=== PATIENT | male | born 1940 | race Caucasian/White ===

== ENCOUNTER 2017-03-15 17:11 | Inpatient (IN) | payer MEDICARE, OTHER ==
[~2017-03-15] VITALS: Ht 188 cm; Wt 98.4 kg
[~2017-03-15 17:11] MED LIST: ASPI81TA17 PO; B COTAB3 PO; CARB200 PO; CLON1 PO; FERR140T PO; LEVE500 PO; MULT-65 PO; ZOCO40TA PO
[2017-03-15 17:14] VITALS: BP 158/89; PULSE 84; RESP 20; TEMP 98.4; O2SAT 97
[2017-03-15] MEDS ORDERED: SODIUM CHLORIDE 0.9% FLUSH 10 ML FLUSH IVF PRN (17:30)
[2017-03-15] MEDS ORDERED: META48.53 PO (17:33)
[2017-03-15] MEDS ORDERED: LEVE250 PO (17:33)
[2017-03-15] MEDS ORDERED: PROT40TA PO (17:35)
[2017-03-15 17:41] VITALS: BP 176/93; PULSE 70; RESP 16; O2SAT 96
--- NOTE | 2017-03-15 17:56 | PD ---
HPI Chief Complaint: GI Complaint Time Seen by Provider: 17:19 Travel History International Travel<30 days: No Contact w/Intl Traveler<30days: No Traveled to known affect area: No History of Present Illness HPI 76-year-old male with PMH of HTN, diverticulosis, alcohol dependence, seizure disorder presents to the ED for evaluation of less than 24-hour history of bloody stools. Patient states that he had to stools with BRB in the bowl and on the paper followed by a very dark and tarry stool this afternoon. He denies dizziness, palpitations, chest pain, shortness of breath, abdominal pain, nausea , vomiting, change in appetite. States he last had a endoscopy approximately 9 months ago. He states that there was a polyp that was "difficult to really reach "at the time. He is followed by Dr. Church, GI and Dr. Reis, PCP. [facility] Past Medical History Anemia: Yes Arthritis: No Asthma: No Autoimmune Disease: No Blood Disorders: No Anxiety: Yes Depression: Yes (HX) Heart Rhythm Problems: No Cancer: No Cardiovascular Problems: Yes High Cholesterol: Yes Chest Pain: No Congestive Heart Failure: No COPD: No Cerebrovascular Accident: Yes Diabetes: No Diminished Hearing: No Diverticulitis: Yes Endocrine: No Gastrointestinal Disorders: Yes (DIVERTICULITIS, BARETTES DISEASE) GERD: Yes Genitourinary: No Headaches: No Hypertension: No Immune Disorder: No Musculoskeletal: No Neurologic: Yes (seizures, cva (lower left leg weankess)) Psychiatric: No Reproductive: No Respiratory: No Seizures: Yes Thyroid Disease: No Past Surgical History Abdominal Surgery: Yes (hernia) AICD: No Arteriovenous Shunt: No Insulin Pump: No Joint Replacement: No Pacemaker: No Other Surgery: Yes Social History Alcohol Use: Yes (2 drinks daily) Tobacco Use: No Substance Use: No Allergies-Medications (Allergen,Severity, Reaction): Coded Allergies: No Known Allergies (Verified , 04/07/16) Reported Meds & Prescriptions Reported Meds & Active Scripts Active Reported Keppra (Levetiracetam) 1,000 Mg Tab 1,500 Mg PO BID Simvastatin 40 Mg Tab 40 Mg PO HS Ferrous Sulfate ER (Ferrous Sulfate) 140 Mg (45 Mg Iron) Tab 140 Mg PO DAILY Klonopin (Clonazepam) 0.5 Mg Tab 0.5 Mg PO HS Tegretol (Carbamazepine) 200 Mg Tab 200 Mg PO BID Nephro-Cecilia (B-Complex W/ C & Folic Acid) 1 Tab 1 Tab PO DAILY Aspirin 81 Mg Chew 81 Mg CHEW DAILY Protonix (Pantoprazole Sodium) 40 Mg Tab 40 Mg PO DAILY Metamucil Original Texture (Psyllium Hydrophilic Mucilloid) 3.4 Gram/7 Gram Pow 1 Scoop PO TID PRN 1 rounded TEASPOON in 8 oz of liquid at the first sign of irregularity. Keppra (Levetiracetam) 250 Mg Tab 250 Mg PO BID Review of Systems Except as stated in HPI: all other systems reviewed are Neg Physical Exam Narrative GENERAL: Well-nourished, well-developed pleasant white male in no acute distress.. SKIN: Focused skin assessment warm/dry. HEAD: Normocephalic. EYES: No scleral icterus. No injection or drainage. NECK: Supple, trachea midline. No JVD or lymphadenopathy. CARDIOVASCULAR: Regular rate and rhythm without murmurs, gallops, or rubs. RESPIRATORY: Breath sounds equal bilaterally. No accessory muscle use. GASTROINTESTINAL: Abdomen soft, non-tender, nondistended. Active bowel sounds. RECTAL EXAM: No masses or tenderness, stool is maroon, guaiac positive. MUSCULOSKELETAL: No cyanosis, or edema. BACK: Nontender without obvious deformity. No CVA tenderness. Data Data Last Documented VS Vital Signs Date Time Temp Pulse Resp B/P (MAP) Pulse Ox O2 Delivery O2 Flow Rate FiO2 03/15/17 17:41 70 16 176/93 (120) 96 03/15/17 17:14 98.4 Room Air Orders Orders Complete Blood Count With Diff (03/15/17 17:19) Comprehensive Metabolic Panel (03/15/17 17:19) Prothrombin Time / Inr (Pt) (03/15/17 17:19) Act Partial Throm Time (Ptt) (03/15/17 17:19) Urinalysis - C+S If Indicated (03/15/17 17:19) Ecg Monitoring (03/15/17 17:19) Iv Access Insert/Monitor (03/15/17 17:19) Oximetry (03/15/17 17:19) Sodium Chloride 0.9% Flush (Ns Flush) (03/15/17 17:30) Pantoprazole Inj (Protonix Inj) (03/15/17 18:00) Type And Screen (03/15/17 19:03) Sodium Chlor 0.9% 1000 Ml Inj (Ns 1000 M (03/15/17 19:03) Sodium Chloride 0.9... W/Pantoprazole In (03/15/17 19:03) Alcohol Withdrawal Asmt-Ciwa ONCE (03/15/17 19:03) Flumazenil Inj (Romazicon Inj) (03/15/17 19:15) Lorazepam (Ativan) (03/15/17 19:15) Lorazepam Inj (Ativan Inj) (03/15/17 19:15) Lorazepam (Ativan) (03/15/17 19:15) Lorazepam Inj (Ativan Inj) (03/15/17 19:15) Lorazepam Inj (Ativan Inj) (03/15/17 19:15) Lorazepam Inj (Ativan Inj) (03/15/17 19:15) Consult Gastroenterology (03/15/17 ) (Hub Use Only)Inp Phy Cons/Ref (03/15/17 ) Diet Heart Healthy (03/15/17 Dinner) Admit Order (Ed Use Only) (03/15/17 19:27) Labs Laboratory Tests Test 03/15/17 18:05 03/15/17 18:20 White Blood Count 6.1 TH/MM3 Red Blood Count 4.34 MIL/MM3 Hemoglobin 12.7 GM/DL Hematocrit 37.8 % Mean Corpuscular Volume 86.9 FL Mean Corpuscular Hemoglobin 29.2 PG Mean Corpuscular Hemoglobin Concent 33.6 % Red Cell Distribution Width 13.9 % Platelet Count 195 TH/MM3 Mean Platelet Volume 8.4 FL Neutrophils (%) (Auto) 74.3 % Lymphocytes (%) (Auto) 14.7 % Monocytes (%) (Auto) 8.3 % Eosinophils (%) (Auto) 2.1 % Basophils (%) (Auto) 0.6 % Neutrophils # (Auto) 4.5 TH/MM3 Lymphocytes # (Auto) 0.9 TH/MM3 Monocytes # (Auto) 0.5 TH/MM3 Eosinophils # (Auto) 0.1 TH/MM3 Basophils # (Auto) 0.0 TH/MM3 CBC Comment DIFF FINAL Differential Comment Prothrombin Time 10.2 SEC Prothromb Time International Ratio 0.9 RATIO Activated Partial Thromboplast Time 26.8 SEC Blood Urea Nitrogen 15 MG/DL Creatinine 0.72 MG/DL Random Glucose 97 MG/DL Total Protein 6.1 GM/DL Albumin 3.5 GM/DL Calcium Level 8.3 MG/DL Alkaline Phosphatase 52 U/L Aspartate Amino Transf (AST/SGOT) 6 U/L Alanine Aminotransferase (ALT/SGPT) 16 U/L Total Bilirubin 0.3 MG/DL Sodium Level 138 MEQ/L Potassium Level 4.0 MEQ/L Chloride Level 104 MEQ/L Carbon Dioxide Level 26.4 MEQ/L Anion Gap 8 MEQ/L Estimat Glomerular Filtration Rate 106 ML/MIN Urine Color YELLOW Urine Turbidity CLEAR Urine pH 6.0 Urine Specific [place] 1.022 Urine Protein NEG mg/dL Urine Glucose (UA) NEG mg/dL Urine Ketones NEG mg/dL Urine Occult Blood NEG Urine Nitrite NEG Urine Bilirubin NEG Urine Urobilinogen LESS THAN 2.0 MG/DL Urine Leukocyte Esterase NEG Urine RBC 1 /hpf Urine WBC 1 /hpf Urine Mucus FEW /lpf Microscopic Urinalysis Comment CULT NOT INDICATED MDM Medical Decision Making Medical Screen Exam Complete: Yes Emergency Medical Condition: Yes Differential Diagnosis Alcoholic gastritis versus diverticulitis versus GI bleed versus anemia versus metabolic derangement versus other Narrative Course 76-year-old male with PMH of HTN, diverticulosis, alcohol dependence, seizure disorder presents to the ED for evaluation of less than 24-hour history of bloody stools. Patient states that he had two stools with BRB in the bowl and on the paper followed by a very dark and tarry stool this afternoon. He denies dizziness, palpitations, chest pain, shortness of breath, abdominal pain, nausea , vomiting, change in appetite. States he last had a endoscopy approximately [address] Church. He states that there was a polyp that was "difficult to really reach "at the time. He is followed by Dr. Church, GI and Dr. Reis, PCP. Vitals reviewed. Physical exam reveals a pleasant white male in no acute distress. Abdominal exam benign. Rectal exam reveals maroon colored stool, guaiac positive. Administered Protonix bolus and IV drip initiated. Hemoglobin 12.7. GI consult placed. I discussed the workup with the patient and his family who are agreeable to admission. The patient was concerned that he would miss his evening dose of Keppra, administered in the ED. I spoke with Dr. Amaro who agrees to accept the patient to medicine service. Please see medicine and GI notes for disposition. HemaPrompt Point of Care Internal Pos. & Neg. Controls: Passed Fecal Specimen Occult Blood: Positive Mary Reardon Mar 15, 2017 17:56
[2017-03-15] MEDS ORDERED: PANTOPRAZOLE SODIUM 40 MG VIAL IVP ONE (18:00)
[2017-03-15 18:29] LABS: AUTOMATED NEUTROPHIL # 4.5 TH/MM3 (1.8-7.7); BASOPHIL % 0.6 % (0.0-2.0); EOSINOPHIL # 0.1 TH/MM3 (0-0.4); EOSINOPHIL % 2.1 % (0.0-4.0); HEMATOCRIT 37.8 % (39.0-51.0); HEMO FLAGS DIFF FINAL; LYMPH % 14.7 % (9.0-44.0); LYMPHOCYTE # 0.9 TH/MM3 (1.0-4.8); MEAN CELL VOLUME 86.9 FL (80.0-100.0); MEAN CORPUSCULAR HEMOGLOBIN 29.2 PG (27.0-34.0); MEAN CORPUSCULAR HGB CONC 33.6 % (32.0-36.0); MONO % 8.3 % (0.0-8.0); NEUT % 74.3 % (16.0-70.0); PLATELET COUNT 195 TH/MM3 (150-450); RED BLOOD COUNT 4.34 MIL/MM3 (4.50-5.90); RED CELL DISTRIBUTION WIDTH 13.9 % (11.6-17.2); WHITE BLOOD COUNT 6.1 TH/MM3 (4.0-11.0)
[2017-03-15] MEDS ORDERED: ASPI81CH CHEW (18:32)
[2017-03-15] MEDS ORDERED: TEGR200T PO (18:32)
[2017-03-15] MEDS ORDERED: FERR140T PO (18:32)
[2017-03-15] MEDS ORDERED: CLON.5 PO (18:32)
[2017-03-15] MEDS ORDERED: NEPHTAB3 PO (18:32)
[2017-03-15] MEDS ORDERED: SIMV40TA PO (18:32)
[2017-03-15 18:36] LABS: APTT (PATIENT) 26.8 SEC (24.3-30.1); INTERNATIONAL NORMALIZED RATIO 0.9 RATIO; PROTHROMBIN TIME - PATIENT 10.2 SEC (9.8-11.6)
[2017-03-15 18:46] LABS: ANION GAP 8 MEQ/L (5-15); AST (GOT) 6 U/L (15-37); BICARBONATE 26.4 MEQ/L (21.0-32.0); BLOOD UREA NITROGEN 15 MG/DL (7-18); CHLORIDE 104 MEQ/L (98-107); GLOMERULAR FILTRATION RATE 106 ML/MIN (>89); SODIUM (NA) 138 MEQ/L (136-145)
[2017-03-15 18:47] LABS: ALT (GPT) 16 U/L (12-78)
[2017-03-15 18:48] LABS: BLOOD, URINE NEG (NEG); COMMENT (UR) CULT NOT INDICATED; CULTURE IF INDICATED CULT NOT INDICATED; GLUCOSE,URINE NEG (NEG); KETONE, URINE NEG (NEG); MUCUS URINE FEW /lpf (OCC); NITRITE,URINE NEG (NEG); URINE COLOR YELLOW (YELLW/STRAW)
[2017-03-15 18:50] LABS: ALKALINE PHOSPHATASE 52 U/L (45-117); TOTAL BILIRUBIN ADULT 0.3 MG/DL (0.2-1.0)
[2017-03-15] MEDS ORDERED: SODIUM CHLOR 0.9% 1000 ML INJ 1,000 ML IV SCH (19:03)
[2017-03-15] MEDS ORDERED: LORazepam 2 MG/ML VIAL IV PUSH PRN ×3 (19:15)
[2017-03-15] MEDS ORDERED: FLUMAZENIL 0.5 MG/5 ML VIAL IV PUSH PRN (19:15)
[2017-03-15] MEDS ORDERED: KEPP10002 PO (19:15)
[2017-03-15] MEDS ORDERED: LORazepam 1 MG TAB PO PRN (19:15)
[2017-03-15] MEDS ORDERED: LORazepam 2 MG TAB PO PRN (19:15)
[2017-03-15 19:35] VITALS: BP 163/82; PULSE 67; RESP 18; O2SAT 97
[2017-03-15] MEDS: PANTOPRAZOLE INJ 80 MG in SODIUM CHLORIDE 0.9% INJ 100 ML IV SCH (19:49)
[2017-03-15] MEDS ORDERED: NALOXONE HCL 0.4 MG/ML AMP IV PRN (21:30)
[2017-03-15] MEDS ORDERED: ACETAMINOPHEN 325 MG TAB PO PRN (21:30)
[2017-03-15] MEDS ORDERED: ONDANSETRON HCL 4 MG/2 ML VIAL IVP PRN (21:30)
[2017-03-15] MEDS: SODIUM CHLOR 0.9% 1000 ML INJ 1,000 ML IV SCH (22:16)
[2017-03-15 23:30] VITALS: BP 152/73; PULSE 64; RESP 17; TEMP 96.8; O2SAT 95
[2017-03-16] VITALS (16 sets, daily range): BP systolic 152–206; BP diastolic 73–122; PULSE 68–169; RESP 16–30; TEMP 96.2–99.3; O2SAT 93–97
--- NOTE | 2017-03-16 02:43 | HHI.HP ---
HPI Service [facility] Primary Care Physician Rohit Reis MD Admission Diagnosis GI bleed Diagnoses: Chief Complaint: Bloody stool Travel History International Travel<30 Days: No Contact w/Intl Traveler <30 Da: No Traveled to Known Affected Are: No History of Present Illness 76 years old male with history of hypertension diverticulosis alcohol dependence home seizure disorder presented to the ED with a complaint of bloody stool, patient stated his stool initially was bright and slowly become very black and tarry. Patient denied dizziness headache blurry vision palpitation chest pain short of breath abdominal pain nausea vomiting, weight loss, he did have endoscopy 9 month ago nothing significant he is aware of, except some polyps. Patient follow up with Dr. Lynnette GOLDSTEIN. 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 Diverticulitis Faria disease History of seizure Hernia Past Surgical History Hernia repair Allergies: Coded Allergies: No Known Allergies (Verified , 04/07/16) Family History Father has lung cancer Social History He has 2 drinks a day Physical Exam Vital Signs Vital Signs Date Time Temp Pulse Resp B/P (MAP) Pulse Ox O2 Delivery O2 Flow Rate FiO2 03/15/17 23:30 96.8 64 17 152/73 (99) 95 03/15/17 19:35 67 18 163/82 (109) 97 Room Air 03/15/17 17:41 70 16 176/93 (120) 96 03/15/17 17:14 98.4 84 20 158/89 (112) 97 Room Air Physical Exam GENERAL: This is a well-nourished, well-developed patient, in no apparent distress. SKIN: No rashes, warm and dry HEAD: Atraumatic. Normocephalic. EYES: Pupils equal round and reactive. Extraocular motions intact. No scleral icterus. ENT: Nose without bleeding, or drainage, Airway patent. NECK: Trachea midline. Supple CARDIOVASCULAR: Regular rate and rhythm without murmurs, gallops, or rubs. RESPIRATORY: Fair air entry bilaterally. No wheezes, rales, or rhonchi. GASTROINTESTINAL: Abdomen soft, non-tender, nondistended. Positive bowel sounds MUSCULOSKELETAL: Extremities without clubbing, cyanosis, or edema. Pedal pulses appreciated NEUROLOGICAL: Awake and alert. Moves all extremity. Normal speech.no focal neurological deficit Laboratory Laboratory Tests Test 03/15/17 18:05 03/15/17 18:20 White Blood Count 6.1 Red Blood Count 4.34 Hemoglobin 12.7 Hematocrit 37.8 Mean Corpuscular Volume 86.9 Mean Corpuscular Hemoglobin 29.2 Mean Corpuscular Hemoglobin Concent 33.6 Red Cell Distribution Width 13.9 Platelet Count 195 Mean Platelet Volume 8.4 Neutrophils (%) (Auto) 74.3 Lymphocytes (%) (Auto) 14.7 Monocytes (%) (Auto) 8.3 Eosinophils (%) (Auto) 2.1 Basophils (%) (Auto) 0.6 Neutrophils # (Auto) 4.5 Lymphocytes # (Auto) 0.9 Monocytes # (Auto) 0.5 Eosinophils # (Auto) 0.1 Basophils # (Auto) 0.0 CBC Comment DIFF FINAL Differential Comment Prothrombin Time 10.2 Prothromb Time International Ratio 0.9 Activated Partial Thromboplast Time 26.8 Blood Urea Nitrogen 15 Creatinine 0.72 Random Glucose 97 Total Protein 6.1 Albumin 3.5 Calcium Level 8.3 Alkaline Phosphatase 52 Aspartate Amino Transf (AST/SGOT) 6 Alanine Aminotransferase (ALT/SGPT) 16 Total Bilirubin 0.3 Sodium Level 138 Potassium Level 4.0 Chloride Level 104 Carbon Dioxide Level 26.4 Anion Gap 8 Estimat Glomerular Filtration Rate 106 Urine Color YELLOW Urine Turbidity CLEAR Urine pH 6.0 Urine Specific [place] 1.022 Urine Protein NEG Urine Glucose (UA) NEG Urine Ketones NEG Urine Occult Blood NEG Urine Nitrite NEG Urine Bilirubin NEG Urine Urobilinogen LESS THAN 2.0 Urine Leukocyte Esterase NEG Urine RBC 1 Urine WBC 1 Urine Mucus FEW Microscopic Urinalysis Comment CULT NOT INDICATED Result Diagram: 03/15/17180403/15/171804 Caprini VTE Risk Assessment Caprini VTE Risk Assessment: Mod/High Risk (score >= 2) VTE Pharm Contraindication: Active bleeding Caprini Risk Assessment Model Point Value = 1 Point Value = 2 Point Value = 3 Point Value = 5 Age 41-60 Minor surgery BMI > 25 kg/m2 Swollen legs Varicose veins or History of unexplained or recurrent spontaneous Oral contraceptives or hormone replacement Sepsis (< 1 month) Serious lung disease, including pneumonia (< 1 month) Abnormal pulmonary function Acute myocardial infarction Congestive heart failure (< 1 month) History of inflammatory bowel disease Medical patient at bed rest Age 61-74 Arthroscopic surgery Major open surgery (> 45 min) Laparoscopic surgery (> 45 min) Malignancy Confined to bed (> 72 hours) Immobilizing plaster cast Central venous access Age >= 75 History of VTE Family history of VTE Factor V Leiden Prothrombin [id number] Lupus anticoagulant Anticardiolipin antibodies Elevated serum homocysteine Heparin-induced thrombocytopenia Other congenital or acquired thrombophilia Stroke (< 1 month) Elective arthroplasty Hip, pelvis, or leg fracture Acute spinal cord injury (< 1 month) Prophylaxis Regimen Total Risk Factor Score Risk Level Prophylaxis Regimen 0-1 Low Early ambulation 2 Moderate Order ONE of the following: *Sequential Compression Device (SCD) *Heparin 5000 units SQ BID 3-4 Higher Order ONE of the following medications: *Heparin 5000 units SQ TID *Enoxaparin/Lovenox 40 mg SQ daily (WT < 150 kg, CrCl > 30 mL/min) *Enoxaparin/Lovenox 30 mg SQ daily (WT < 150 kg, CrCl > 10-29 mL/min) *Enoxaparin/Lovenox 30 mg SQ BID (WT < 150 kg, CrCl > 30 mL/min) AND/OR *Sequential Compression Device (SCD) 5 or more Highest Order ONE of the following medications: *Heparin 5000 units SQ TID (Preferred with Epidurals) *Enoxaparin/Lovenox 40 mg SQ daily (WT < 150 kg, CrCl > 30 mL/min) *Enoxaparin/Lovenox 30 mg SQ daily (WT < 150 kg, CrCl > 10-29 mL/min) *Enoxaparin/Lovenox 30 mg SQ BID (WT < 150 kg, CrCl > 30 mL/min) AND *Sequential Compression Device (SCD) Assessment and Plan Assessment and Plan 75 years old male with history of hypertension and alcohol dependence presented with Rectal bleed: History of diverticulitis and Faria's Recent endoscopically 9 month ago showed polyps No weight loss, no abdominal pain Consul GI Keep patient nothing by mouth, iv Protonix Monitor H&H Hyperlipidemia: Continue statin History of seizure: Continue Keppra and Tegretol, monitor electrolyte and magnesium All dependence: Patient counseled, CIWA protocol DVT prophylaxis with SCD, no chemical anticoagulation due to GI bleed Discussed Condition With Patient Sreedhar Amaro MD Mar 16, 2017 02:43
[2017-03-16 03:58] LABS: AUTOMATED NEUTROPHIL # 3.6 TH/MM3 (1.8-7.7); BASOPHIL % 0.7 % (0.0-2.0); EOSINOPHIL # 0.2 TH/MM3 (0-0.4); EOSINOPHIL % 2.8 % (0.0-4.0); HEMATOCRIT 35.7 % (39.0-51.0); HEMO FLAGS DIFF FINAL; LYMPH % 20.7 % (9.0-44.0); LYMPHOCYTE # 1.1 TH/MM3 (1.0-4.8); MEAN CORPUSCULAR HEMOGLOBIN 28.7 PG (27.0-34.0); MEAN CORPUSCULAR HGB CONC 33.4 % (32.0-36.0); MONO % 7.8 % (0.0-8.0); PLATELET COUNT 185 TH/MM3 (150-450); RED BLOOD COUNT 4.16 MIL/MM3 (4.50-5.90); RED CELL DISTRIBUTION WIDTH 14.2 % (11.6-17.2); WHITE BLOOD COUNT 5.3 TH/MM3 (4.0-11.0)
[2017-03-16] MEDS: PANTOPRAZOLE INJ 80 MG in SODIUM CHLORIDE 0.9% INJ 100 ML IV SCH ×3 (04:26→22:19)
[2017-03-16 04:40] LABS: BICARBONATE 27.4 MEQ/L (21.0-32.0)
[2017-03-16] MEDS: SODIUM CHLOR 0.9% 1000 ML INJ 1,000 ML IV SCH ×2 (07:28→13:04)
[2017-03-16] MEDS: carBAMazepine 200 MG TAB PO SCH ×3 (09:00→20:53)
[2017-03-16] MEDS ORDERED: levETIRAcetam 500 MG TAB PO SCH (09:00)
[2017-03-16] MEDS ORDERED: levETIRAcetam 250 MG TAB PO SCH (09:00)
--- NOTE | 2017-03-16 11:19 | HHI.PR ---
Addendum to Inpatient Note Addendum Reason: Additional Documentation Additional Information S: Tano heard on overhead page. A few minutes later, received notification via code pager. Present team responded to Tano to find patient actively having a generalized tonic-clonic seizure. Per nurse report, there were some confusion about his Keppra dosage, so he didn't get his Keppra this morning. As we entered the room, nurse reported that patient had been seizing for about 5 minutes and had received Ativan 2 mg IV. He was also on oxygen by nasal cannula. 10:54 AM, start seizure episode. 11 AM, 2 mg Ativan IV given. 11:01 AM stop of seizure. O: Vitals: O2 via nasal cannula increased to 3 L per min to 4 L/m. 11:02 AM, blood pressure 206/122, pulse 169, O2 sat 96% on 4 L nasal cannula. 11:05 AM, blood pressure 181/92, pulse 116, pulse ox 98% on 4 L nasal cannula, temperature 98.4F axillary 11:08 AM, Accu-Chek showed blood glucose of 143 Gen.: Elderly gentleman having a generalized tonic-clonic seizure HEENT: Normocephalic atraumatic, relatively dry mucous membranes Cardiovascular: Tachycardic rate and regular rhythm Respiratory: Clear to also take bilaterally Extremities: No edema A/P: 76-year-old man here for GI bleed on CIWA and missed his Keppra dose presented with 5 minutes of tonic-clonic seizure, which resolved with Ativan [address] Alvarado has been notified. Putting an additional orders for Ativan and clonidine. at bedside was aware of situation. - Generalized tonic clonic seizure resolved with Ativan - Fingerstick blood glucose within normal limits, electrolytes from this morning within normal limits. - Continue to monitor - Other orders per primary doctor Patient seen and discussed with Dr. Kuo. Richy Denton MD R2 Mar 16, 2017 11:19
[2017-03-16] MEDS ORDERED: SODIUM CHLORIDE 0.9% FLUSH 10 ML FLUSH IV FLUSH PRN (11:45)
[2017-03-16] MEDS ORDERED: LORazepam 2 MG/ML VIAL IV PRN (11:45)
[2017-03-16] MEDS ORDERED: levETIRAcetam INJ 1,500 MG in SODIUM CHLORIDE 0.9% INJ 100 ML IV SCH ×2 (12:00→21:00)
[2017-03-16] MEDS ORDERED: LORazepam 2 MG/ML VIAL IV PUSH ONE (12:30)
[2017-03-16] MEDS: levETIRAcetam 1000 MG INJ 100 ML IV SCH ×2 (12:43→20:04)
[2017-03-16] MEDS: levETIRAcetam 500 MG/NS 100 ML IV SCH ×4 (12:43→20:04)
--- NOTE | 2017-03-16 12:44 | PD.CONS ---
HPI Service Critical Care Medicine Consult Requested By [facility] Reason for Consult Refractory seizures Primary Care Physician Rohit Reis MD History of Present Illness 76 y/o man admitted with UGI bleed , Marks's esophagus, with long-standing seizure history refused his keppra and tegretol medication this morning at 0900 because he thought it was the wrong dose. About 1130 hours he developed generalized seizures refractory to ativan 2 mg iv. After 4 mg ativan total seizures stopped. 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 If he misses his AEDs he seizes. On arrival he is protecting his airway, no obstruction. Unresponsive, hypertensive. DTRs 4+ patella and + clonus left ankle. I escorted him to the [facility] and spoke to his and son at the bedside. On arrival, though non convulsive and using right arm purposefully, the EEG showed residual seizure activity. He received an additional versed dose of 5 mg X 2 iv, then EEG was quiet. PMH of HTN, diverticulosis, alcohol dependence, seizure disorder. Presented to the ED for evaluation of less than 24-hour history of bloody stools. Patient states that he had to stools with BRB in the bowl and on the paper followed by a very dark and tarry stool this afternoon. He denies dizziness, palpitations, chest pain, shortness of breath, abdominal pain, nausea , vomiting, change in appetite. States he last had a endoscopy approximately 9 months ago. He states that there was a polyp that was "difficult to really reach "at the time. He is followed by Dr. Church, GI and Dr. Reis, PCP. Review of Systems ROS No obvious preceding complaints according to his . Past Family Social History Allergies: Coded Allergies: No Known Allergies (Verified , 04/07/16) Past Medical History Past Medical History Anemia: Yes Arthritis: No Asthma: No Autoimmune Disease: No Blood Disorders: No Anxiety: Yes Depression: Yes (HX) Heart Rhythm Problems: No Cancer: No Cardiovascular Problems: Yes High Cholesterol: Yes Chest Pain: No Congestive Heart Failure: No COPD: No Cerebrovascular Accident: Yes Diabetes: No Diminished Hearing: No Diverticulitis: Yes Endocrine: No Gastrointestinal Disorders: Yes (DIVERTICULITIS, MARKS'S DISEASE) GERD: Yes Genitourinary: No Headaches: No Hypertension: No Immune Disorder: No Musculoskeletal: No Neurologic: Yes (seizures, cva (lower left leg weankess)) Psychiatric: No Reproductive: No Respiratory: No Seizures: Yes Thyroid Disease: No Past Surgical History Abdominal Surgery: Yes (hernia) AICD: No Arteriovenous Shunt: No Insulin Pump: No Joint Replacement: No Pacemaker: No Other Surgery: Yes Social History Alcohol Use: Yes (2 drinks daily) Tobacco Use: No Substance Use: No Allergies-Medications Allergies-Medications (Allergen,Severity, Reaction): Coded Allergies: No Known Allergies (Verified , 04/07/16) Reported Meds & Prescriptions Reported Meds & Active Scripts Active Reported Keppra (Levetiracetam) 1,000 Mg Tab 1,500 Mg PO BID Simvastatin 40 Mg Tab 40 Mg PO HS Ferrous Sulfate ER (Ferrous Sulfate) 140 Mg (45 Mg Iron) Tab 140 Mg PO DAILY Klonopin (Clonazepam) 0.5 Mg Tab 0.5 Mg PO HS Tegretol (Carbamazepine) 200 Mg Tab 200 Mg PO BID Nephro-Cecilia (B-Complex W/ C & Folic Acid) 1 Tab 1 Tab PO DAILY Aspirin 81 Mg Chew 81 Mg CHEW DAILY Protonix (Pantoprazole Sodium) 40 Mg Tab 40 Mg PO DAILY Metamucil Original Texture (Psyllium Hydrophilic Mucilloid) 3.4 Gram/7 Gram Pow 1 Scoop PO TID PRN 1 rounded TEASPOON in 8 oz of liquid at the first sign of irregularity. Keppra (Levetiracetam) 250 Mg Tab 250 Mg PO BID Physical Exam Vital Signs Vital Signs Date Time Temp Pulse Resp B/P (MAP) Pulse Ox O2 Delivery O2 Flow Rate FiO2 03/16/17 11:00 97 6.00 03/16/17 08:29 97 21 03/16/17 08:00 96.2 70 16 164/97 (119) 96 03/16/17 07:30 Room Air 03/16/17 06:47 68 03/16/17 04:00 96.2 74 17 176/82 (113) 96 03/15/17 23:30 96.8 64 17 152/73 (99) 95 03/15/17 19:35 67 18 163/82 (109) 97 Room Air 03/15/17 17:41 70 16 176/93 (120) 96 03/15/17 17:14 98.4 84 20 158/89 (112) 97 Room Air Physical Exam Gen: Unresponsive Head: Atraumatic. Neck: Rigid, no airway obstruction. Lungs: Clear, good arpita air movement. Heart: NL S1S2, tachycardia. No JVD. Abdomen: Voluntary guarding only. Extremities: Well perfused. Muscle mass less left arm and leg. Neuro: Pupils 1 mm. Rigid extremities with flexion right arm. Patella DTRs 4+, clonus left ankle. Disconjugate gaze. Laboratory Laboratory Tests Test 03/15/17 18:05 03/15/17 18:20 03/16/17 03:43 White Blood Count 6.1 5.3 Red Blood Count 4.34 4.16 Hemoglobin 12.7 11.9 Hematocrit 37.8 35.7 Mean Corpuscular Volume 86.9 86.0 Mean Corpuscular Hemoglobin 29.2 28.7 Mean Corpuscular Hemoglobin Concent 33.6 33.4 Red Cell Distribution Width 13.9 14.2 Platelet Count 195 185 Mean Platelet Volume 8.4 7.7 Neutrophils (%) (Auto) 74.3 68.0 Lymphocytes (%) (Auto) 14.7 20.7 Monocytes (%) (Auto) 8.3 7.8 Eosinophils (%) (Auto) 2.1 2.8 Basophils (%) (Auto) 0.6 0.7 Neutrophils # (Auto) 4.5 3.6 Lymphocytes # (Auto) 0.9 1.1 Monocytes # (Auto) 0.5 0.4 Eosinophils # (Auto) 0.1 0.2 Basophils # (Auto) 0.0 0.0 CBC Comment DIFF FINAL DIFF FINAL Differential Comment Prothrombin Time 10.2 Prothromb Time International Ratio 0.9 Activated Partial Thromboplast Time 26.8 Blood Urea Nitrogen 15 11 Creatinine 0.72 0.67 Random Glucose 97 90 Total Protein 6.1 Albumin 3.5 Calcium Level 8.3 8.0 Alkaline Phosphatase 52 Aspartate Amino Transf (AST/SGOT) 6 Alanine Aminotransferase (ALT/SGPT) 16 Total Bilirubin 0.3 Sodium Level 138 142 Potassium Level 4.0 4.0 Chloride Level 104 109 Carbon Dioxide Level 26.4 27.4 Anion Gap 8 6 Estimat Glomerular Filtration Rate 106 115 Urine Color YELLOW Urine Turbidity CLEAR Urine pH 6.0 Urine Specific [place] 1.022 Urine Protein NEG Urine Glucose (UA) NEG Urine Ketones NEG Urine Occult Blood NEG Urine Nitrite NEG Urine Bilirubin NEG Urine Urobilinogen LESS THAN 2.0 Urine Leukocyte Esterase NEG Urine RBC 1 Urine WBC 1 Urine Mucus FEW Microscopic Urinalysis Comment CULT NOT INDICATED Result Diagram: 03/16/1734203/16/17342 Assessment and Plan Assessment and Plan Assessment: 1. Generalized seizures. 2. GI bleed. 3. Marks's esophagitis. 4. Daily ETOH consumption. Plan: 1. Convert Keppra 1500 bid to IV. 2. Continue tegretol bid when PO. 3. Clonazepam 0.5 hs. 4. Protonix. 5. SCDs. 6. EEG. 7. Neurology Consult Overall impression: Critically ill with generalized seizures, escorted to [facility] after loading with ativan. Critical care 45 mins Frank Stearns MD Mar 16, 2017 12:44
[2017-03-16] MEDS ORDERED: LORazepam 2 MG/ML VIAL IV PUSH PRN (13:00)
[2017-03-16] MEDS ORDERED: hydrALAZINE HCL 20 MG/ML VIAL IV PUSH PRN (13:15)
[2017-03-16] MEDS ORDERED: ENALAPRILAT 2.5 MG/2 ML VIAL IV PUSH PRN (13:15)
[2017-03-16] MEDS ORDERED: LABETALOL HCL 100 MG/20 ML VIAL IV PUSH PRN (13:15)
[2017-03-16 13:28] LABS: HEMATOCRIT 40.5 % (39.0-51.0); REVIEW FLAG FINAL
[2017-03-16] MEDS ORDERED: MIDAZOLAM HCL 5 MG/ML VIAL (1 ML) ONE (13:51)
[2017-03-16 13:54] LABS: MAGNESIUM 2.2 MG/DL (1.5-2.5)
[2017-03-16] MEDS ORDERED: MIDAZOLAM HCL 5 MG/ML VIAL (1 ML) IV ONE (15:00)
--- NOTE | 2017-03-16 15:57 | MG ---
cc: BEAU RUTLEDGE MD Lab No: Date: 03/16/2017 Age: Sex: M Race: ELECTROENCEPHALOGRAM RECORD NUMBER [id number] DATE OF 1940 HISTORY A 76-year-old with a history of seizure activity on versed. DESCRIPTION Generalized slowing appreciated 2-3 Hz with theta activity. Rhythmic right-sided theta 2-3 Hz activity appearing around epoch 55 in the right T4 region, small sharp transients followed by phase reversal sharp waves more clear epoch 92 in the right temporal region. Single lead EKG showing sinus rhythm. Reasonably good EEG variability reactivity. INTERPRETATION Abnormal EEG with asymmetric right hemispheric slowing with right sharp activity and a couple brief bursts of rhythmic activity suggestive of possible partial seizures. This did improve towards the latter part of the recording. Clinical correlation. Beua Rutledge MD MG/KK /3:22 PM /3:37 PM
--- NOTE | 2017-03-16 17:27 | MB ---
cc: DEVI OLIVER HARRY MD DATE OF CONSULTATION 03/16/17 DATE OF 36 HISTORY OF PRESENT ILLNESS The patient is a 76-year-old white male I was asked to see for further evaluation and management of rectal bleeding which developed yesterday with passage of red blood per rectum, painlessly. He had no dizziness, headaches, blurry vision, palpitations, chest pains, dyspnea, abdominal discomfort or nausea or emesis. Previous evaluation for a similar process nine months earlier revealed no abnormalities, except for diverticular disease. He last saw Dr. Church in the office on October 14 of this year. The patient had undergone a pill camera examination in 2016, suggesting a small bowel lipoma versus a gist. An MRE was performed with negative findings, but artifact was present. Discussion was made about considering double balloon enteroscopy, but the decision was made not to pursue this. He has a history of Faria's esophagus and takes pantoprazole routinely. His last endoscopy was performed in September of 2015. Another exam is tentatively scheduled for September of 2018. Between admission and the time I have seen the patient now, he suffered a grand mal seizure. Keppra controls seizures when it is taken on schedule. Because of communication problems in the hospital here last night, he was not given his evening dose of Keppra and seized today. MEDICAL HISTORY 1. Anemia, 2. Anxiety, depression, 3. Hyperlipidemia. 4. The daughter tells me there is a degree of dementia. 5. Previous stroke with left leg weakness. 6. Diverticular disease 7. Faria's esophagus. PAST SURGICAL HISTORY Herniorrhaphy. MEDICATIONS 1. Keppra. 2. Pantoprazole At home. 1. Tylenol. 2. Tegretol. 3. Clonazepam. 4. Clonidine. 5. Enalapril 6. Flumazenil 7. Hydralazine 8. Labetalol 9. Ativan 10. Narcan 11. Zofran 12. Simvastatin. ALLERGIES No known allergies SOCIAL HISTORY Tobacco use none, alcohol use none. FAMILY HISTORY Unremarkable. REVIEW OF SYSTEMS At this point, it is hard to obtain any review of systems, but according to family nothing else has been troubling him recently. PHYSICAL EXAMINATION VITAL SIGNS: His weight is 77.4 kg, temperature 99.3, pulse 106, blood pressure 176/97. GENERAL: He is awake. He responds to some commands. He is somewhat groggy and drowsy. HEENT: He is anicteric. Extraocular motions are hard to assess. I appreciate no submandibular, cervical, supraclavicular, axillary or epitrochlear adenopathy. LUNGS: Close to auscultation with what sounds like phlegm in the back of the throat. CARDIAC: Regular rate and rhythm with no gross murmur or gallop. ABDOMEN: Good bowel sounds with no appreciable bruit. The abdomen is soft. I appreciate no tenderness. No masses or hepatosplenomegaly are noted. No pedal edema, Dupuytren's contractures or palmar erythema. LABORATORY FINDINGS Yesterday evening, his white count was 6.1, hemoglobin 12.7, platelets 195. This morning white count 5.3, hemoglobin 11.9, platelets 185 and today at 13:00 hemoglobin 13.0, INR was 0.9 yesterday. Sodium on admission was 138 with a potassium of 4.0, BUN of 15 and a creatinine of 0.72. Liver enzymes normal. Albumin 3.5. IMAGING STUDIES No radiologic studies were performed. IMPRESSION Hematochezia in this patient with a history of diverticular bleeding. I suspect we are dealing with the same process now. His normal BUN to creatinine ratio points away from an upper GI bleeding source. The stable hemoglobin also points to a lower GI source. At this point after talking to the patient's two adult children and one grandson, the plan is to monitor his labs closely. No endoscopic studies are needed at this time. He has had no bleeding in well over 24 hours. MD EDVIN Sánchez/ /3:26 PM /5:04 PM
--- NOTE | 2017-03-16 19:35 | MB ---
cc: FORREST FREITAS MD DATE OF CONSULTATION: 03/16/2017 REASON FOR CONSULTATION: Seizures. HISTORY OF PRESENT ILLNESS Mr. Lovell is a 76-year-old male with past medical history of hypertension, diverticulosis, alcohol dependence, seizure disorder diagnosed six years ago, follows up with Dr. Dumont, currently on Keppra 1250 twice daily , on carbamazepine 200 milligrams twice daily, and at baseline he is demented as per his who is at the bedside. The patient presented to [facility] emergency room with complaint of bloody stool. The patient denies any headache, dizziness, blurry vision. The patient was delirious, status post received Ativan for seizure this morning, thus the medical history is obtained from the who is at the bedside and the medical records. As per when the patient takes a dose a few hours after the scheduled time he will have a seizure. The patient has had history of remote stroke with mild residual left- sided weakness. EEG done emergently showed some slowing on the right side with sharp wave activity that was thought to be epileptogenic in nature and he received additional doses of anticonvulsants. REVIEW OF SYSTEMS: Unobtainable. According to medical records, a 12 point review of systems is negative except for what is stated in the HPI. PAST MEDICAL HISTORY: Anxiety, anemia, depression, coronary artery disease, Faria esophagus, upper GI bleeding, seizures, stroke, diverticulitis, hyperlipidemia, dementia and depression. PAST SURGICAL HISTORY Hernia SOCIAL HISTORY Alcohol, drinks daily, denies tobacco and substance. ALLERGIES No known allergies. MEDICATIONS 1. Keppra 1500 mg twice daily. 2. Simvastatin. 3. Ferrous sulfate. 4. Klonopin 0.5 mg. 5. Carbamazepine 200 milligrams twice daily. 6. Aspirin 81 mg. 7. Protonix. 8. Metamucil. FAMILY HISTORY Noncontributory PHYSICAL EXAMINATION General: Awake, alert, not oriented, delirious, status post Ativan and Versed. HEENT: Atraumatic, normocephalic. Intact hearing. Intact vision. Respiratory: Clear to auscultation. No wheezes. Cardiovascular: Sinus tachycardia. Abdomen: Soft, nontender. Extremities: Moves extremities equally. No cyanosis, no edema. Neurological: Awake, alert, oriented to person and not place or time, delirious , mild dysarthria, baseline dementia. Cranial nerve II-XII is grossly intact. Questionable dysarthria/chronic, mild subtle left facial droop/chronic unable to accurately assess the motor sensory and cerebellar system due to lack of cooperation, status post delirium, status post anticonvulsants but moves all extremities equally. Reflexes 1+ bilateral symmetrical. Plantars bilaterally downgoing. LABORATORY DATA: WBC 5.3, hemoglobin 11.9, MCV 86, platelet count 185, INR 0.9, sodium 142, potassium 4, anion gap 6, BUN 11, creatinine 0.67, calcium 8. AST 6, ALT 16, alkaline phosphatase 52. Carbamazepine level is subtherapeutic at 3.3, normal [ 4 to 12.] DIAGNOSTIC IMPRESSION 1. Breakthrough seizures, chronic seizure disorder. 2. Remote history of stroke with residual left-sided weakness. 3. Dementia. 4. GI bleeding. 5. Daily alcohol Consumption. PLAN 1. Neuro checks q1 hour. 2. Keppra 1500 milligrams twice daily. 3. Tegretol 200 milligrams twice daily. 4. Clonazepam 0.5 mg at night. 5. Seizure precautions 6. Follow up Tegretol level in a.m. 7. Ativan 1 milligram for seizures lasting greater than three minutes. 8. SCDs GI prophylaxis. 9. CIWA protocol. Thank you for the opportunity to participate in the care of your patient. MD NATHAN Brothers/MARY /5:48 PM /6:35 PM NGUYỄN
[2017-03-16] MEDS: clonazePAM 0.5 MG TAB PO SCH (20:04)
[2017-03-16 20:46] LABS: HEMATOCRIT 38.4 % (39.0-51.0); REVIEW FLAG FINAL
[2017-03-16] MEDS ORDERED: SIMVASTATIN 40 MG TAB PO SCH (21:00)
[2017-03-16] MEDS: SODIUM CHLORIDE 0.9% FLUSH 10 ML FLUSH IV FLUSH SCH (21:00)
[2017-03-16] MEDS: PRAVASTATIN SOD 80 MG TAB PO SCH (22:18)
[2017-03-16] MEDS: LORazepam 2 MG/ML VIAL IV PUSH PRN (23:50)
[2017-03-17] VITALS (14 sets, daily range): BP systolic 95–164; BP diastolic 53–75; PULSE 70–93; RESP 23–28; TEMP 98–100; O2SAT 95–99
[2017-03-17] MEDS: LORazepam 2 MG/ML VIAL IV PUSH PRN (04:40)
[2017-03-17] MEDS: SODIUM CHLOR 0.9% 1000 ML INJ 1,000 ML IV SCH ×3 (04:42→22:08)
[2017-03-17] MEDS: levETIRAcetam 500 MG/NS 100 ML IV SCH ×4 (08:31→20:57)
[2017-03-17] MEDS: levETIRAcetam 1000 MG INJ 100 ML IV SCH ×2 (08:31→20:58)
[2017-03-17] MEDS: carBAMazepine 200 MG TAB PO SCH ×2 (08:31→21:00)
--- NOTE | 2017-03-17 10:56 | HHI.CCPN ---
Subjective Remarks/Hospital Course 76 y/o man admitted with UGI bleed , Faria's esophagus, with long-standing seizure history refused his keppra and tegretol medication this morning at 0900 because he thought it was the wrong dose. About 1130 hours he developed generalized seizures refractory to ativan 2 mg iv. After 4 mg ativan total seizures stopped. 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 If he misses his AEDs he seizes. On arrival he is protecting his airway, no obstruction. Unresponsive, hypertensive. DTRs 4+ patella and + clonus left ankle. I escorted him to the [facility] and spoke to his and son at the bedside. On arrival, though non convulsive and using right arm purposefully, the EEG showed residual seizure activity. He received an additional versed dose of 5 mg X 2 iv, then EEG was quiet. PMH of HTN, diverticulosis, alcohol dependence, seizure disorder. Presented to the ED for evaluation of less than 24-hour history of bloody stools. Patient states that he had to stools with BRB in the bowl and on the paper followed by a very dark and tarry stool this afternoon. He denies dizziness, palpitations, chest pain, shortness of breath, abdominal pain, nausea , vomiting, change in appetite. States he last had a endoscopy approximately 9 months ago. He states that there was a polyp that was "difficult to really reach "at the time. He is followed by Dr. Church, GI and Dr. Reis, PCP. Subjective 03/17: Afebrile. Received 3 mg lorazepam overnight due to agitation. Currently arousable and follows simple commands. Objective Vital Signs Date Time Temp Pulse Resp B/P (MAP) Pulse Ox O2 Delivery O2 Flow Rate FiO2 03/17/17 06:00 93 03/17/17 04:00 100.0 25 122/59 (80) 95 03/16/17 20:00 Room Air 03/16/17 14:43 10.00 03/16/17 08:29 21 Intake and Output 03/17/17 03/17/17 03/18/17 08:00 16:00 00:00 Intake Total 928 ml Output Total 1000 ml Balance -72 ml Result Diagram: 03/16/17195403/16/17 0343 Objective Remarks Gen: 68-year-old male, resting in bed in no acute distress Head: Atraumatic. Neck: Supple. No JVD or thyromegaly Lungs: Clear, good arpita air movement. Heart: Tachycardic, RR. S1, S2 no S4. Abdomen: Soft nontender nondistended hypoactive bowel sounds Extremities: Well perfused. Muscle mass less left arm and leg. Neuro: Pupils 2 mm and reactive bilaterally. Strength 4+ out of 5 right upper, right lower and left upper extremity. 3+ left lower extremity. Patella DTRs 4+ , Disconjugate gaze improved today. A/P Assessment and Plan Neuro/Psych: Seizure disorder NOS with current breakthrough partial seizures History of right basal ganglia CVA with left lower extremity weakness Dementia disorder NOS Depression/anxiety Daily alcohol use - 2 glasses of wine daily EEG 03/16 revealed right hemispheric slowing with sharp To in the right side possible partial seizure Currently on levetiracetam 1500 mg IV twice a day, carbamazepine 2 mg 3 times a day (level4.3 ) clonazepam 0.5 mill grams a night Ativan 1 mg for seizures greater than [address] Zaidi /neurology following CT head ordered today Seizure precautions Thiamine 100 mg IV daily 5 days CV: Hypertension dyslipidemia Coronary artery disease On simvastatin 40 mg daily at home - pravastatin 80 mg daily hospital substitution As needed labetalol/hydralazine to keep systolic blood pressure less than 170 Restart aspirin [address] head negative for acute bleed Resp: Nasal cannula to maintain saturations greater than equal to 92% Incentive spirometry while awake GI: History of gastric AVM History of Faria's esophagus Colonic diverticulosis History of constipation Possible lower GI bleed - Dr. Reddy following. Hemoglobin stable at 13.6 last night. A.m. pending Currently on pantoprazole 40 mgV daily Patient is currently nothing by mouth Patient is on psyllium powder for constipation at home Will start PPN today. : Alvarado catheter if indicated for accurate I's and O's in a critically ill patient Endo: Sliding-scale insulin with Accu-Cheks to maintain euglycemia/low regimen/ Novulin R Renal: Creatinine currently within normal limits Monitor urine output Accurate I's and O's Currently on normal saline in the 100 cc an hour Heme: History of anemia On iron sulfate 140 mg by mouth daily at home. Follow-up CBC this AM. ID: Monitor for infection FEN: Replace electrolytes as clinically indicated MSK: PT evaluate and treat Access - Utilize peripheral IV. Central line if indicated Prophylaxis - GI - pantoprazole - DVT - SCD/start heparin subcutaneous if head CT negative for acute findings Critical care time 30 minutes Rufus Marx MD Mar 17, 2017 10:56
[2017-03-17] MEDS ORDERED: LORazepam 2 MG/ML VIAL IV PUSH PRN (11:00)
[2017-03-17] MEDS ORDERED: LABETALOL HCL 100 MG/20 ML VIAL IV PUSH PRN (11:00)
[2017-03-17] MEDS ORDERED: DEXTROSE 50% IN WATER 50 ML VIAL(D50) IV PRN (11:15)
[2017-03-17] MEDS ORDERED: GLUCAGON 1 MG/ML VIAL OTHER PRN (11:15)
[2017-03-17] MEDS ORDERED: PANTOPRAZOLE SODIUM 40 MG VIAL IV PUSH SCH (12:00)
[2017-03-17] MEDS ORDERED: THIAMINE INJ 100 MG in SODIUM CHLORIDE 0.9% INJ 100 ML IV ONE (12:00)
--- NOTE | 2017-03-17 15:53 | HHI.GIFU ---
Subjective Remarks alert but confused NAD no active bleeding hb 11-12 range Objective Vitals I&O Vital Signs Date Time Temp Pulse Resp B/P (MAP) Pulse Ox O2 Delivery O2 Flow Rate FiO2 03/17/17 11:58 97 21 03/17/17 10:00 76 03/17/17 08:00 76 03/17/17 08:00 98.0 76 27 95/53 (67) 99 03/17/17 07:00 99 Room Air 03/17/17 06:00 93 03/17/17 04:00 100.0 92 25 122/59 (80) 95 03/17/17 04:00 91 03/17/17 02:00 80 03/17/17 00:00 86 03/17/17 00:00 98.9 85 23 134/60 (84) 97 03/16/17 22:00 92 03/16/17 20:00 93 03/16/17 20:00 98.9 93 25 152/73 (99) 93 03/16/17 20:00 96 Room Air 03/16/17 18:00 95 03/16/17 16:00 93 03/16/17 16:00 98.8 92 30 155/83 (107) 94 I/O 03/16/17 03/16/17 03/16/17 03/17/17 03/17/17 03/17/17 07:00 15:00 23:00 07:00 15:00 23:00 Intake Total 2100 ml 305 ml 635 ml 928 ml 205 ml Output Total 450 ml 1000 ml Balance 2100 ml 305 ml 185 ml -72 ml 205 ml Intake Oral 0 ml IV Total 2100 ml 305 ml 635 ml 928 ml 205 ml Output Urine Total 450 ml 1000 ml # Voids 2 3 2 # Bowel Movements 0 0 0 0 Laboratory Laboratory Tests Test 03/16/17 19:55 03/17/17 04:53 Hemoglobin 12.6 Hematocrit 38.4 Carbamazepine (Tegretol) Level 4.3 Physical Exam CHEST: Chest is clear to auscultation and percussion. CARDIAC: Regular rate and rhythm with no murmur gallop or rubs. ABDOMEN: Soft, nondistended, nontender; no hepatosplenomegaly; bowel sounds are present in all four quadrants. EXTREMITIES: No clubbing, cyanosis, or edema. Assessment and Plan Assessment: (1) GI bleed ICD Codes: K92.2 - Gastrointestinal hemorrhage, unspecified Status: Acute Plan Pt appears stable would proceed conservatively for now ( probable diverticular bleed as before)...Disucussed w start po when cognitive function improves. Case Demarco MD Mar 17, 2017 15:53
[2017-03-17] MEDS: INSULIN NovoLIN REGULAR SUPPLEMENTAL SCALE SQ SCH ×2 (16:00→20:00)
[2017-03-17] MEDS ORDERED: INSULIN NovoLIN REGULAR SUPPLEMENTAL SCALE SQ SCH (16:00)
[2017-03-17] MEDS ORDERED: FOSPHENYTOIN INJ 1,000 MGPE in SODIUM CHLORIDE 0.9% INJ 50 ML IV ONE (16:30)
--- NOTE | 2017-03-17 17:49 | RADRPT ---
EXAM DATE/TIME: 03/17/2017 16:46 [place] COMPARISON: No previous studies available for comparison. INDICATIONS : Seizures RADIATION DOSE: 38.43 CTDIvol (mGy) MEDICAL HISTORY : Seizures. SURGICAL HISTORY : None. ENCOUNTER: Initial ACUITY: 1 day PAIN SCALE: Non-responsive LOCATION: cranial TECHNIQUE: Multiple contiguous axial images were obtained of the head. Using automated exposure control and adj ustment of the mA and/or kV according to patient size, radiation dose was kept as low as reasonably a chievable to obtain optimal diagnostic quality images. DICOM format image data is available electro nically for review and comparison. FINDINGS: The patient's head is mildly canted in the gantry. There is some motion artifact in the lowest conve xity images. CEREBRUM: The ventricles are normal in size for patient's age. There is a lacunar infarct in the right basal g anglia and extending to the zaragoza radiata. There is focal ex vacuo enlargement of the lateral ventr icle. There is decreased attenuation in the white matter of the high convexity right frontoparietal region. In the right middle cranial fossa, image #10, there is some hyperdensity which could be due to beam hardening artifact; however, focal hemorrhage cannot be excluded. No extra-axial fluid or bl ood. POSTERIOR FOSSA: The cerebellum and brainstem are intact. The 4th ventricle is midline. The cerebellopontine angle i s unremarkable. EXTRACRANIAL: The visualized portion of the orbits is intact. SKULL: The calvaria is intact. No evidence of skull fracture. CONCLUSION: 1. Old lacunar infarct right basal ganglia and zaragoza radiata. 2. Questionable hyperdensity in the right middle cranial fossa could represent hemorrhage or be artif actual from tenting of the. Recommend further characterization with MRI. Dave Heller MD on March 17, 2017 at 17:44 Board Certified Radiologist. This report was verified electronically.
--- NOTE | 2017-03-17 18:17 | HHI.PR ---
Review/Management Diagnosis Breakthrough seizures Abnormal hyperdense lesion on head CT scan Episodes of agitation Dementia Alcohol abuse Hypertension Hyperlipidemia Plan Neuro-checks Q1 h Keppra 1500mg Q12h Carbamazepine 200mg Q12h Ativan 1 mg for seizures lasting > 3 minutes Seizure precautions MRI brain w/o contrast DVT prophylaxis GI prophylaxis CIWA protocol Diagnosis/Plan: Subjective Subjective Comments No reported seizure activity RN reported agitation overnight Head CT scan revealed a right middle cranial fossa hyperdense area, possibly hemorrhage, as per radiology report at bed side AED levels are therapeutic for both CBZ [4.4] & LVTCM [21.3] Active Medications Current Medications Medications (Trade) Dose Ordered Sig/Meli Route Start Time Stop Time Status Last Admin Sodium Chloride 1,000 ml @ 100 mls/hr Q10H IV 03/15/17 21:28 03/17/17 04:42 (Tylenol) 650 mg Q4H PRN PO 03/15/17 21:30 (Zofran Inj) 4 mg Q6H PRN IVP 03/15/17 21:30 (Narcan Inj) 0.4 mg UNSCH PRN IV 03/15/17 21:30 (TEGretol) 200 mg BID PO 03/16/17 09:00 03/17/17 08:31 (KlonoPIN) 0.5 mg HS PO 03/16/17 21:00 03/16/17 20:04 (Keppra) 1,500 mg BID PO 03/16/17 09:00 Future Hold (Keppra) 250 mg BID PO 03/16/17 09:00 Future Hold (Catapres) 0.1 mg Q6H PRN PO 03/16/17 11:30 (NS Flush) 2 ml UNSCH PRN IV FLUSH 03/16/17 11:45 (NS Flush) 2 ml BID IV FLUSH 03/16/17 21:00 Levetriacetam 100 ml @ 400 mls/hr Q12HR IV 03/16/17 12:30 03/17/17 08:31 Levetriacetam 500 mg/Sodium Chloride 105 ml @ 420 mls/hr Q12HR IV 03/16/17 12:30 03/17/17 08:31 (Apresoline Inj) 10 mg Q2H PRN IV PUSH 03/16/17 13:15 (Vasotec Inj) 2.5 mg Q8H PRN IV PUSH 03/16/17 13:15 (Pravachol) 80 mg HS PO 03/16/17 22:00 03/16/17 22:18 (Trandate Inj) 10 mg Q1HR PRN IV PUSH 03/17/17 11:00 (Ativan Inj) 1 mg Q1HR PRN IV PUSH 03/17/17 11:00 Thiamine HCl 100 mg/Sodium Chloride 101 ml @ 101 mls/hr Q24H IV 03/18/17 12:00 03/23/17 11:59 (Protonix Inj) 40 mg Q24H IV PUSH 03/17/17 12:00 (D50w (Vial) Inj) 50 ml UNSCH PRN IV 03/17/17 11:15 (Glucagon Inj) 1 mg UNSCH PRN OTHER 03/17/17 11:15 Multivitamins 10 ml/Folic Acid 1 mg/Amino Acids/ Electrolytes/ Dextrose 2,010.2 ml @ 100 mls/ hr Q20H7M IV 03/17/17 20:00 Fat Emulsion Intravenous 250 ml @ 10 mls/hr Q24H IV 03/17/17 20:00 (NovoLIN R SUPPLEMENTAL SCALE) 1 Q4HR SQ 03/17/17 16:00 (Cerebyx Inj) 100 mgpe Q8HR IV 03/17/17 22:00 Allergies Allergies Coded Allergies No Known Allergies (Verified04/07/16) Review of Systems All other ROS: ROS reviewed as documented in chart Exam I&O / VS 03/17/17 03/17/17 03/18/17 14:59 22:59 06:59 Intake Total 205 ml Balance 205 ml IV Total 205 ml Vital Signs Date Time Temp Pulse Resp B/P (MAP) Pulse Ox O2 Delivery O2 Flow Rate FiO2 03/17/17 16:00 84 03/17/17 16:00 98.5 93 28 164/73 (103) 98 03/17/17 14:00 84 03/17/17 12:00 98.4 85 27 129/60 (83) 95 03/17/17 12:00 85 03/17/17 11:58 97 21 03/17/17 10:00 76 03/17/17 08:00 76 03/17/17 08:00 98.0 76 27 95/53 (67) 99 03/17/17 07:00 99 Room Air 03/17/17 06:00 93 03/17/17 04:00 100.0 92 25 122/59 (80) 95 03/17/17 04:00 91 03/17/17 02:00 80 03/17/17 00:00 86 03/17/17 00:00 98.9 85 23 134/60 (84) 97 03/16/17 22:00 92 03/16/17 20:00 93 03/16/17 20:00 98.9 93 25 152/73 (99) 93 03/16/17 20:00 96 Room Air Exam Comments Patient is sleepy and lethargic Pupils are 2mm equally reacted to light Plantar reflexes are b/l downgoing Objective Radiology Results Last [address] 03/17/17 0000 Signed Impressions: Service Date/Time: Friday, March 17, 2017 16:46 - CONCLUSION: 1. Old lacunar infarct right basal ganglia and zaragoza radiata. 2. Questionable hyperdensity in the right middle cranial fossa could represent hemorrhage or be artifactual from tenting of the. Recommend further characterization with MRI. Dave Heller MD Micro and Labs Laboratory Tests Test 03/16/17 19:55 03/17/17 04:53 Hemoglobin 12.6 Hematocrit 38.4 Carbamazepine (Tegretol) Level 4.3 Sunitha Zaidi MD Mar 17, 2017 18:17
[2017-03-17 18:54] LABS: HEMATOCRIT 37.7 % (39.0-51.0); MEAN CORPUSCULAR HEMOGLOBIN 29.5 PG (27.0-34.0); MEAN CORPUSCULAR HGB CONC 32.5 % (32.0-36.0); PLATELET COUNT 152 TH/MM3 (150-450); RED BLOOD COUNT 4.14 MIL/MM3 (4.50-5.90); RED CELL DISTRIBUTION WIDTH 14.4 % (11.6-17.2); REVIEW FLAG FINAL; WHITE BLOOD COUNT 10.2 TH/MM3 (4.0-11.0)
[2017-03-17 19:00] LABS: MAGNESIUM 1.9 MG/DL (1.5-2.5)
[2017-03-17 19:46] LABS: POTASSIUM 3.6 MEQ/L (3.5-5.1)
[2017-03-17] MEDS: CLINIMIX E 4.25/5 2000 mL- >42 mls/hr IV SCH ×6 (20:00→21:06)
[2017-03-17] MEDS: FAT EMULSION 20% INJ 250 ML (@10 mls/hr) IV SCH ×2 (20:00→21:06)
[2017-03-17 20:08] LABS: CKMB 2.6 NG/ML (0.5-3.6)
[2017-03-17] MEDS: clonazePAM 0.5 MG TAB PO SCH (21:00)
[2017-03-17] MEDS: PRAVASTATIN SOD 80 MG TAB PO SCH (21:00)
[2017-03-17] MEDS: SODIUM CHLORIDE 0.9% FLUSH 10 ML FLUSH IV FLUSH SCH (21:00)
--- NOTE | 2017-03-17 21:21 | MG ---
cc: BEAU RUTLEDGE MD Lab No: [id number] Date: 03/17/17 Age: 76 Sex: M Race: DATE OF 1940 A 76-year-old with history of seizure activity. Asymmetric right hemispheric slowing, pseudo periodic waves occurring every 1-3 second interval, low voltage. Posterior rhythm going up to 7 to 8 Hz, 10 to 40 microvolts. Generalized slowing. Some vertex waves suggest a drowsy state. Limited driving with photic stimulation. Single lead EKG showing irregular irregular rhythm at times. INTERPRETATION Improvement from previous EEG over persistent asymmetric right hemispheric slowing with pseudo periodic waves occurring on the right temporal region. No active seizures. Cardiac arrhythmia. Clinical correlation. Beau Rutledge MD MG/EO /8:06 PM /9:14 PM
[2017-03-17] MEDS: FOSPHENYTOIN SODIUM 100 MG PE/2 ML VIAL IV SCH (22:08)
[2017-03-18] VITALS (15 sets, daily range): BP systolic 126–171; BP diastolic 63–85; PULSE 70–90; RESP 22–29; TEMP 97.8–100.4; O2SAT 92–100
[2017-03-18] MEDS: INSULIN NovoLIN REGULAR SUPPLEMENTAL SCALE SQ SCH ×7 (04:00→22:30)
[2017-03-18] MEDS: FOSPHENYTOIN SODIUM 100 MG PE/2 ML VIAL IV SCH ×3 (05:30→20:53)
[2017-03-18 05:31] LABS: AUTOMATED NEUTROPHIL # 8.1 TH/MM3 (1.8-7.7); BASOPHIL # 0.1 TH/MM3 (0-0.2); BASOPHIL % 0.5 % (0.0-2.0); EOSINOPHIL # 0.1 TH/MM3 (0-0.4); EOSINOPHIL % 1.1 % (0.0-4.0); HEMATOCRIT 38.1 % (39.0-51.0); HEMO FLAGS DIFF FINAL; MEAN CELL VOLUME 87.2 FL (80.0-100.0); MEAN CORPUSCULAR HEMOGLOBIN 29.4 PG (27.0-34.0); MEAN CORPUSCULAR HGB CONC 33.7 % (32.0-36.0); MONO % 7.6 % (0.0-8.0); NEUT % 80.8 % (16.0-70.0); PLATELET COUNT 170 TH/MM3 (150-450); RED BLOOD COUNT 4.37 MIL/MM3 (4.50-5.90); RED CELL DISTRIBUTION WIDTH 14.3 % (11.6-17.2)
[2017-03-18 05:33] LABS: ALKALINE PHOSPHATASE 46 U/L (45-117); ALT (GPT) 23 U/L (12-78); ANION GAP 9 MEQ/L (5-15); AST (GOT) 35 U/L (15-37); BICARBONATE 24.6 MEQ/L (21.0-32.0); BLOOD UREA NITROGEN 8 MG/DL (7-18); CHLORIDE 103 MEQ/L (98-107); GLOMERULAR FILTRATION RATE 113 ML/MIN (>89); MAGNESIUM 1.9 MG/DL (1.5-2.5); POTASSIUM 3.5 MEQ/L (3.5-5.1); SODIUM (NA) 137 MEQ/L (136-145)
[2017-03-18] MEDS: levETIRAcetam 1000 MG INJ 100 ML IV SCH ×2 (08:08→20:52)
[2017-03-18] MEDS: carBAMazepine 200 MG TAB PO SCH ×2 (08:08→20:53)
[2017-03-18] MEDS: levETIRAcetam 500 MG/NS 100 ML IV SCH ×4 (08:08→20:52)
[2017-03-18] MEDS: SODIUM CHLORIDE 0.9% FLUSH 10 ML FLUSH IV FLUSH SCH ×2 (09:00→20:53)
--- NOTE | 2017-03-18 09:07 | HHI.CCPN ---
Subjective Remarks/Hospital Course 76 y/o man admitted with UGI bleed , Faria's esophagus, with long-standing seizure history refused his keppra and tegretol medication this morning at 0900 because he thought it was the wrong dose. About 1130 hours he developed generalized seizures refractory to ativan 2 mg iv. After 4 mg ativan total seizures stopped. 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 If he misses his AEDs he seizes. On arrival he is protecting his airway, no obstruction. Unresponsive, hypertensive. DTRs 4+ patella and + clonus left ankle. I escorted him to the [facility] and spoke to his and son at the bedside. On arrival, though non convulsive and using right arm purposefully, the EEG showed residual seizure activity. He received an additional versed dose of 5 mg X 2 iv, then EEG was quiet. PMH of HTN, diverticulosis, alcohol dependence, seizure disorder. Presented to the ED for evaluation of less than 24-hour history of bloody stools. Patient states that he had to stools with BRB in the bowl and on the paper followed by a very dark and tarry stool this afternoon. He denies dizziness, palpitations, chest pain, shortness of breath, abdominal pain, nausea , vomiting, change in appetite. States he last had a endoscopy approximately 9 months ago. He states that there was a polyp that was "difficult to really reach "at the time. He is followed by Dr. Church, GI and Dr. Reis, PCP. 03/17: Afebrile. Received 3 mg lorazepam overnight due to agitation. Currently arousable and follows simple commands. Subjective 03/18: Tmax 1.4. Currently 98.4. More awake and alert. Oriented to person, time and year. Not to place. Moving all 4 extremity spontaneously. Objective Vital Signs Date Time Temp Pulse Resp B/P (MAP) Pulse Ox O2 Delivery O2 Flow Rate FiO2 03/18/17 06:00 86 03/18/17 04:00 99.4 23 171/79 (109) 92 03/17/17 20:38 21 03/17/17 19:00 Room Air 03/16/17 14:43 10.00 Intake and Output 03/18/17 03/18/17 03/19/17 08:00 16:00 00:00 Intake Total 1087 ml Output Total 1500 ml Balance -413 ml Result Diagram: 03/18/17 0432 03/18/17 0432 Imaging Last Impressions Head CT 03/17/17 0000 Signed Impressions: Service Date/Time: Friday, March 17, 2017 16:46 - CONCLUSION: 1. Old lacunar infarct right basal ganglia and zaragoza radiata. 2. Questionable hyperdensity in the right middle cranial fossa could represent hemorrhage or be artifactual from tenting of the. Recommend further characterization with MRI. Dave Heller MD Objective Remarks Gen: 68-year-old male, resting in bed in no acute distress Head: Atraumatic. Neck: Supple. No JVD or thyromegaly Lungs: Clear, good arpita air movement. Heart: Tachycardic, RR. S1, S2 no S4. Abdomen: Soft nontender nondistended hypoactive bowel sounds Extremities: Well perfused. Muscle mass less left arm and leg. Some edema / redness left upper extremity. Neuro: Pupils 2 mm and reactive bilaterally. Strength 4+ out of 5 right upper, right lower and left upper extremity. 3+ left lower extremity. Patella DTRs 4+ , Disconjugate gaze improved today. 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 No obvious hepatomegaly Currently on levetiracetam 1500 mg IV twice a day (level 2I.3), carbamazepine 2 mg 3 times a day (level4.3 ) clonazepam 0.5 mill grams a night Started on fosphenytoin 100 mg IV 3 times a day for possible seizure breakthrough. Lorazepam 1 mg for seizures greater than [address] Zaidi /neurology following CT brain 03/17 revealed old right basal ganglia/zaragoza radiata CVA lacunar. Possible hemorrhage the right middle cranial fossa. Recommended MRI brain. Seizure precautions Thiamine 100 mg IV daily 5 days CV: Hypertension dyslipidemia Coronary artery disease On simvastatin 40 mg daily at home - pravastatin 80 mg daily hospital substitution As needed labetalol/hydralazine and enalapril to keep systolic blood pressure less than 170 Restart aspirin [address] head negative for acute bleed Resp: Nasal cannula to maintain saturations greater than equal to 92% Incentive spirometry while awake GI: History of gastric AVM History of Faria's esophagus Colonic diverticulosis History of constipation Possible lower GI bleed - Dr. Reddy following. Hemoglobin stable at 13.6 last night. A.m. till around 12 Currently on pantoprazole 40 mg IV daily Patient is currently nothing by mouth. Speech therapy to evaluate and treat Patient is on psyllium powder for constipation at home TPN instead of PPN was given last night. We'll discontinue along with lipid emulsion : Alvarado catheter if indicated for accurate I's and O's in a critically ill patient Endo: Sliding-scale insulin with Accu-Cheks to maintain euglycemia/low regimen/ Novulin R Renal: Creatinine currently within normal limits Monitor urine output Accurate I's and O's Currently on normal saline in the 100 cc an hour Heme: History of anemia On iron sulfate 140 mg by mouth daily at home. Follow-up CBC this AM. ID: Monitor for infection FEN: Replace electrolytes as clinically indicated MSK: PT evaluate and treat Access - Utilize peripheral IV. Central line if indicated Prophylaxis - GI - pantoprazole - DVT - SCD/start heparin subcutaneous if head MRI negative for acute findings Critical care time 30 minutes Rufus Marx MD Mar 18, 2017 09:07
[2017-03-18] MEDS: SODIUM CHLOR 0.9% 1000 ML INJ 1,000 ML IV SCH ×2 (09:28→19:55)
[2017-03-18] MEDS ORDERED: POTASSIUM PHOSPHATE INJ 15 MMOL in SODIUM CHLORIDE 0.9% INJ 150 ML IV ONE (10:00)
[2017-03-18] MEDS: cloNIDine HCL 0.1 MG TAB PO PRN (10:03)
[2017-03-18] MEDS: MAGNESIUM SULFATE 1 GM PREMIX 100 ML IV SCH ×2 (10:20→11:23)
--- NOTE | 2017-03-18 10:56 | HHI.GIFU ---
Subjective Remarks alert Nad felling better tolerating po well no bleeding Objective Vitals I&O Vital Signs Date Time Temp Pulse Resp B/P (MAP) Pulse Ox O2 Delivery O2 Flow Rate FiO2 03/18/17 06:00 86 03/18/17 04:00 80 03/18/17 04:00 99.4 80 23 171/79 (109) 92 03/18/17 02:00 82 03/18/17 00:00 100.4 82 22 131/85 (100) 96 03/18/17 00:00 82 03/17/17 22:00 70 03/17/17 20:38 99 21 03/17/17 20:00 99.9 90 25 161/75 (103) 98 03/17/17 20:00 90 03/17/17 19:00 98 Room Air 03/17/17 18:00 80 03/17/17 16:00 84 03/17/17 16:00 98.5 93 28 164/73 (103) 98 03/17/17 14:00 84 03/17/17 12:00 98.4 85 27 129/60 (83) 95 03/17/17 12:00 85 03/17/17 11:58 97 21 I/O 03/17/17 03/17/17 03/17/17 03/18/17 03/18/17 03/18/17 07:00 15:00 23:00 07:00 15:00 23:00 Intake Total 928 ml 205 ml 1344 ml 1087 ml Output Total 1000 ml 1050 ml 1500 ml Balance -72 ml 205 ml 294 ml -413 ml IV Total 928 ml 205 ml 1344 ml 1087 ml Output Urine Total 1000 ml 1050 ml 1500 ml # Voids 1 # Bowel Movements 0 0 0 Laboratory Laboratory Tests Test 03/17/17 18:00 03/17/17 21:03 03/18/17 04:32 White Blood Count 10.2 10.0 Red Blood Count 4.14 4.37 Hemoglobin 12.2 12.9 Hematocrit 37.7 38.1 Mean Corpuscular Volume 91.0 87.2 Mean Corpuscular Hemoglobin 29.5 29.4 Mean Corpuscular Hemoglobin Concent 32.5 33.7 Red Cell Distribution Width 14.4 14.3 Platelet Count 152 170 Mean Platelet Volume 8.8 8.8 Blood Urea Nitrogen 11 8 Creatinine 0.72 0.68 Random Glucose 80 82 Calcium Level 7.9 8.0 Phosphorus Level 2.0 2.3 Magnesium Level 1.9 1.9 Sodium Level 136 137 Potassium Level 3.6 3.5 Chloride Level 104 103 Carbon Dioxide Level 24.0 24.6 Anion Gap 8 9 Estimat Glomerular Filtration Rate 106 113 Total Creatine Kinase 535 Creatine Kinase MB 2.6 Creatine Kinase MB % 0.5 Amylase Level 85 Lipase 69 Lactic Acid Level 2.4 Ammonia 13 Neutrophils (%) (Auto) 80.8 Lymphocytes (%) (Auto) 10.0 Monocytes (%) (Auto) 7.6 Eosinophils (%) (Auto) 1.1 Basophils (%) (Auto) 0.5 Neutrophils # (Auto) 8.1 Lymphocytes # (Auto) 1.0 Monocytes # (Auto) 0.8 Eosinophils # (Auto) 0.1 Basophils # (Auto) 0.1 CBC Comment DIFF FINAL Differential Comment Total Protein 6.8 Albumin 3.4 Alkaline Phosphatase 46 Aspartate Amino Transf (AST/SGOT) 35 Alanine Aminotransferase (ALT/SGPT) 23 Total Bilirubin 1.0 Thyroid Stimulating Hormone 3rd Gen 0.731 Phenytoin (Dilantin) Level 11.9 Physical Exam CHEST: Chest is clear to auscultation and percussion. CARDIAC: Regular rate and rhythm with no murmur gallop or rubs. ABDOMEN: Soft, nondistended, nontender; no hepatosplenomegaly; bowel sounds are present in all four quadrants. EXTREMITIES: No clubbing, cyanosis, or edema. Assessment and Plan Assessment: (1) GI bleed ICD Codes: K92.2 - Gastrointestinal hemorrhage, unspecified Status: Acute Plan Pt appears stable ..Disucussed w advance diet as tolerate .. stable GI for d/c with oupt follow up thanks Case Demarco MD Mar 18, 2017 10:56
[2017-03-18] MEDS: THIAMINE INJ 100 MG in SODIUM CHLORIDE 0.9% INJ 100 ML IV SCH (11:22)
[2017-03-18] MEDS: PANTOPRAZOLE SOD 40 MG DELAYED RELEASE TAB PO SCH (11:23)
--- NOTE | 2017-03-18 12:38 | RADRPT ---
EXAM DATE/TIME: 03/18/2017 09:29 [facility] COMPARISON: CT BRAIN W/O CONTRAST, March 17, 2017, 16:46. INDICATIONS : Seizures. Abnormal CT. MEDICAL HISTORY : Seizures. Cerebrovascular disease. SURGICAL HISTORY : Umbilical hernia repair. ENCOUNTER: Subsequent ACUITY: 2 day PAIN SCORE: 0/10 LOCATION: TECHNIQUE: Multiplanar, multisequence MRI of the brain was performed without contrast. FINDINGS: There is no evidence of hemorrhage. No brain mass is identified. There is symmetric moderate cortical atrophy. There is a tiny focus of restricted diffusion in the high convexity left frontal centrum se miovale with the appearance of a subacute white matter infarct. There are old lacunar infarcts in the basal ganglia and left cerebellar hemisphere. There are moderate symmetric bilateral chronic appeari ng white matter signal changes. The extracranial structures appear benign. CONCLUSION: Tiny area of subacute infarction in the left centrum semiovale. Atrophy and nonacute microvascular is chemic changes Kevin Ortega MD on March 18, 2017 at 12:30 Board Certified Radiologist. This report was verified electronically.
--- NOTE | 2017-03-18 16:24 | HHI.PR ---
Review/Management Diagnosis Breakthrough seizures Subacute ischemic stroke at left central semi ovale Episodes of agitation, resolved Dementia Alcohol abuse Hypertension Hyperlipidemia Left UE swelling? thrombosis at bed side, explained to her the current neurologic status Plan Neuro-checks Q1 h Keppra 1500mg Q12h Carbamazepine 200mg Q12h Aspirin 81mg daily Ativan 1 mg for seizures lasting > 3 minutes Seizure precautions DVT prophylaxis GI prophylaxis CIWA protocol Discussed with and RN Diagnosis/Plan: Subjective Subjective Comments No acute events reported No reported seizures As reported by RN, patient is more calm and cooperative during the day MRI brain revealed a subacute left ischemic central semiovale infarction EEG 03/17/2017 revealed [Improvement from previous EEG over persistent asymmetric right hemispheric slowing with pseudo periodic waves occurring on the right temporal region. No active seizures. Cardiac arrhythmia. Clinical correlation.] Left UE swollen, warm and tender, US is pending. Active Medications Current Medications Medications (Trade) Dose Ordered Sig/Meli Route Start Time Stop Time Status Last Admin Sodium Chloride 1,000 ml @ 100 mls/hr Q10H IV 03/15/17 21:28 03/18/17 09:28 (Tylenol) 650 mg Q4H PRN PO 03/15/17 21:30 (Zofran Inj) 4 mg Q6H PRN IVP 03/15/17 21:30 (Narcan Inj) 0.4 mg UNSCH PRN IV 03/15/17 21:30 (TEGretol) 200 mg BID PO 03/16/17 09:00 03/18/17 08:08 (KlonoPIN) 0.5 mg HS PO 03/16/17 21:00 03/16/17 20:04 (Keppra) 1,500 mg BID PO 03/16/17 09:00 Future Hold (Keppra) 250 mg BID PO 03/16/17 09:00 Future Hold (Catapres) 0.1 mg Q6H PRN PO 03/16/17 11:30 03/18/17 10:03 (NS Flush) 2 ml UNSCH PRN IV FLUSH 03/16/17 11:45 (NS Flush) 2 ml BID IV FLUSH 03/16/17 21:00 03/18/17 09:00 Levetriacetam 100 ml @ 400 mls/hr Q12HR IV 03/16/17 12:30 03/18/17 08:08 Levetriacetam 500 mg/Sodium Chloride 105 ml @ 420 mls/hr Q12HR IV 03/16/17 12:30 03/18/17 08:08 (Apresoline Inj) 10 mg Q2H PRN IV PUSH 03/16/17 13:15 (Vasotec Inj) 2.5 mg Q8H PRN IV PUSH 03/16/17 13:15 (Pravachol) 80 mg HS PO 03/16/17 22:00 03/16/17 22:18 (Trandate Inj) 10 mg Q1HR PRN IV PUSH 03/17/17 11:00 (Ativan Inj) 1 mg Q1HR PRN IV PUSH 03/17/17 11:00 Thiamine HCl 100 mg/Sodium Chloride 101 ml @ 101 mls/hr Q24H IV 03/18/17 12:00 03/23/17 11:59 03/18/17 11:22 (D50w (Vial) Inj) 50 ml UNSCH PRN IV 03/17/17 11:15 (Glucagon Inj) 1 mg UNSCH PRN OTHER 03/17/17 11:15 (NovoLIN R SUPPLEMENTAL SCALE) 1 Q4HR SQ 03/17/17 16:00 (Cerebyx Inj) 100 mgpe Q8HR IV 03/17/17 22:00 03/18/17 14:33 (Protonix) 40 mg DAILY PO 03/18/17 10:00 03/18/17 11:23 Allergies Allergies Coded Allergies No Known Allergies (Verified04/07/16) Review of Systems All other ROS: ROS reviewed as documented in chart Exam I&O / VS Vital Signs Date Time Temp Pulse Resp B/P (MAP) Pulse Ox O2 Delivery O2 Flow Rate FiO2 03/18/17 14:00 81 03/18/17 12:05 94 21 03/18/17 12:00 90 03/18/17 12:00 98.9 90 29 132/81 (98) 100 03/18/17 10:00 90 03/18/17 10:00 98.7 86 29 167/80 (109) 96 03/18/17 08:00 86 03/18/17 08:00 98.7 86 29 167/80 (109) 96 03/18/17 07:00 100 Room Air 03/18/17 06:00 86 03/18/17 04:00 80 03/18/17 04:00 99.4 80 23 171/79 (109) 92 03/18/17 02:00 82 03/18/17 00:00 100.4 82 22 131/85 (100) 96 03/18/17 00:00 82 03/17/17 22:00 70 03/17/17 20:38 99 21 03/17/17 20:00 99.9 90 25 161/75 (103) 98 03/17/17 20:00 90 03/17/17 19:00 98 Room Air 03/17/17 18:00 80 Exam Comments Patient is sleepy during the encounter Pupils are 2mm equally reacted to light Plantar reflexes are b/l downgoing Objective Radiology Results Last 72 hours Impressions Upper Extremity Ultrasound 03/18/17 0000 Signed Impressions: Service Date/Time: March 16:58 - CONCLUSION: Basilic vein thrombosis. K. Nikhil Holloway MD Brain MRI 03/18/17 0000 Signed Impressions: Service Date/Time: March 09:29 - CONCLUSION: Tiny area of subacute infarction in the left centrum semiovale. Atrophy and nonacute microvascular ischemic changes Kevin Ortega MD Head CT 03/17/17 0000 Signed Impressions: Service Date/Time: Friday, March 17, 2017 16:46 - CONCLUSION: 1. Old lacunar infarct right basal ganglia and zaragoza radiata. 2. Questionable hyperdensity in the right middle cranial fossa could represent hemorrhage or be artifactual from tenting of the. Recommend further characterization with MRI. Dave Heller MD Micro and Labs Laboratory Tests Test 03/17/17 18:00 03/17/17 21:03 03/18/17 04:32 White Blood Count 10.2 10.0 Red Blood Count 4.14 4.37 Hemoglobin 12.2 12.9 Hematocrit 37.7 38.1 Mean Corpuscular Volume 91.0 87.2 Mean Corpuscular Hemoglobin 29.5 29.4 Mean Corpuscular Hemoglobin Concent 32.5 33.7 Red Cell Distribution Width 14.4 14.3 Platelet Count 152 170 Mean Platelet Volume 8.8 8.8 Blood Urea Nitrogen 11 8 Creatinine 0.72 0.68 Random Glucose 80 82 Calcium Level 7.9 8.0 Phosphorus Level 2.0 2.3 Magnesium Level 1.9 1.9 Sodium Level 136 137 Potassium Level 3.6 3.5 Chloride Level 104 103 Carbon Dioxide Level 24.0 24.6 Anion Gap 8 9 Estimat Glomerular Filtration Rate 106 113 Total Creatine Kinase 535 Creatine Kinase MB 2.6 Creatine Kinase MB % 0.5 Amylase Level 85 Lipase 69 Lactic Acid Level 2.4 Ammonia 13 Neutrophils (%) (Auto) 80.8 Lymphocytes (%) (Auto) 10.0 Monocytes (%) (Auto) 7.6 Eosinophils (%) (Auto) 1.1 Basophils (%) (Auto) 0.5 Neutrophils # (Auto) 8.1 Lymphocytes # (Auto) 1.0 Monocytes # (Auto) 0.8 Eosinophils # (Auto) 0.1 Basophils # (Auto) 0.1 CBC Comment DIFF FINAL Differential Comment Total Protein 6.8 Albumin 3.4 Alkaline Phosphatase 46 Aspartate Amino Transf (AST/SGOT) 35 Alanine Aminotransferase (ALT/SGPT) 23 Total Bilirubin 1.0 Thyroid Stimulating Hormone 3rd Gen 0.731 Phenytoin (Dilantin) Level 11.9 Sunitha Zaidi MD Mar 18, 2017 16:23
--- NOTE | 2017-03-18 17:53 | RADRPT ---
EXAM DATE/TIME: 03/18/2017 16:58 [facility] COMPARISON: No previous studies available for comparison. INDICATIONS : Left arm edema. MEDICAL HISTORY : Hypercholesterolemia. Diverticulitis. Seizures. CVA. GERD. GI bleeds. Anemia. SURGICAL HISTORY : Hernia repair. Blood transfusions. ENCOUNTER: Initial ACUITY: 1 day PAIN SCORE: 2/10 LOCATION: Left arm. FINDINGS: There is thrombus within the basilic vein, however there is spontaneous flow documented in the brachi al, cephalic, axillary, and subclavian veins. CONCLUSION: Basilic vein thrombosis. Wanda Holloway MD on March 18, 2017 at 17:51 Board Certified Radiologist. This report was verified electronically.
[2017-03-18] MEDS: HEPARIN SODIUM - SQ 10,000 UNITS/ML VIAL SQ SCH ×2 (18:33→20:53)
[2017-03-18] MEDS: PRAVASTATIN SOD 80 MG TAB PO SCH (20:53)
[2017-03-18] MEDS: clonazePAM 0.5 MG TAB PO SCH (20:53)
[2017-03-19] VITALS (11 sets, daily range): BP systolic 132–170; BP diastolic 62–113; PULSE 77–94; RESP 16–27; TEMP 96.9–100; O2SAT 95–98
[2017-03-19] MEDS: INSULIN NovoLIN REGULAR SUPPLEMENTAL SCALE SQ SCH ×5 (02:41→20:00)
[2017-03-19] MEDS: SODIUM CHLOR 0.9% 1000 ML INJ 1,000 ML IV SCH (04:15)
[2017-03-19] MEDS: HEPARIN SODIUM - SQ 10,000 UNITS/ML VIAL SQ SCH ×3 (05:35→21:56)
[2017-03-19] MEDS: FOSPHENYTOIN SODIUM 100 MG PE/2 ML VIAL IV SCH ×3 (05:35→21:55)
[2017-03-19 05:53] LABS: AUTOMATED NEUTROPHIL # 7.7 TH/MM3 (1.8-7.7); BASOPHIL # 0.1 TH/MM3 (0-0.2); BASOPHIL % 0.8 % (0.0-2.0); EOSINOPHIL # 0.2 TH/MM3 (0-0.4); EOSINOPHIL % 1.7 % (0.0-4.0); HEMATOCRIT 36.1 % (39.0-51.0); HEMO FLAGS DIFF FINAL; LYMPH % 11.5 % (9.0-44.0); LYMPHOCYTE # 1.1 TH/MM3 (1.0-4.8); MEAN CELL VOLUME 85.5 FL (80.0-100.0); MEAN CORPUSCULAR HEMOGLOBIN 29.2 PG (27.0-34.0); MEAN CORPUSCULAR HGB CONC 34.1 % (32.0-36.0); MONO % 8.2 % (0.0-8.0); NEUT % 77.8 % (16.0-70.0); PLATELET COUNT 172 TH/MM3 (150-450); RED BLOOD COUNT 4.23 MIL/MM3 (4.50-5.90); RED CELL DISTRIBUTION WIDTH 14.2 % (11.6-17.2); WHITE BLOOD COUNT 9.9 TH/MM3 (4.0-11.0)
[2017-03-19] MEDS: cloNIDine HCL 0.1 MG TAB PO PRN ×2 (06:14→13:40)
[2017-03-19 06:17] LABS: ALT (GPT) 29 U/L (12-78); ANION GAP 7 MEQ/L (5-15); AST (GOT) 34 U/L (15-37); BICARBONATE 25.9 MEQ/L (21.0-32.0); BLOOD UREA NITROGEN 9 MG/DL (7-18); CHLORIDE 103 MEQ/L (98-107); GLOMERULAR FILTRATION RATE 113 ML/MIN (>89); POTASSIUM 3.5 MEQ/L (3.5-5.1); SODIUM (NA) 136 MEQ/L (136-145)
[2017-03-19 06:20] LABS: ALKALINE PHOSPHATASE 43 U/L (45-117); TOTAL BILIRUBIN ADULT 0.7 MG/DL (0.2-1.0)
[2017-03-19] MEDS: carBAMazepine 200 MG TAB PO SCH ×2 (08:55→21:56)
[2017-03-19] MEDS: PANTOPRAZOLE SOD 40 MG DELAYED RELEASE TAB PO SCH (08:55)
[2017-03-19] MEDS: levETIRAcetam 500 MG/NS 100 ML IV SCH ×4 (08:56→21:55)
[2017-03-19] MEDS: levETIRAcetam 1000 MG INJ 100 ML IV SCH ×2 (08:56→21:54)
[2017-03-19] MEDS: SODIUM CHLORIDE 0.9% FLUSH 10 ML FLUSH IV FLUSH SCH ×2 (09:00→21:00)
[2017-03-19] MEDS: THIAMINE INJ 100 MG in SODIUM CHLORIDE 0.9% INJ 100 ML IV SCH (12:22)
--- NOTE | 2017-03-19 12:50 | HHI.CCPN ---
Subjective Remarks/Hospital Course 76 y/o man admitted with UGI bleed , Faria's esophagus, with long-standing seizure history refused his keppra and tegretol medication this morning at 0900 because he thought it was the wrong dose. About 1130 hours he developed generalized seizures refractory to ativan 2 mg iv. After 4 mg ativan total seizures stopped. 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 If he misses his AEDs he seizes. On arrival he is protecting his airway, no obstruction. Unresponsive, hypertensive. DTRs 4+ patella and + clonus left ankle. I escorted him to the [facility] and spoke to his and son at the bedside. On arrival, though non convulsive and using right arm purposefully, the EEG showed residual seizure activity. He received an additional versed dose of 5 mg X 2 iv, then EEG was quiet. PMH of HTN, diverticulosis, alcohol dependence, seizure disorder. Presented to the ED for evaluation of less than 24-hour history of bloody stools. Patient states that he had to stools with BRB in the bowl and on the paper followed by a very dark and tarry stool this afternoon. He denies dizziness, palpitations, chest pain, shortness of breath, abdominal pain, nausea , vomiting, change in appetite. States he last had a endoscopy approximately 9 months ago. He states that there was a polyp that was "difficult to really reach "at the time. He is followed by Dr. Church, GI and Dr. Reis, PCP. 03/17: Afebrile. Received 3 mg lorazepam overnight due to agitation. Currently arousable and follows simple commands. Subjective 03/18: Tmax 1.4. Currently 98.4. More awake and alert. Oriented to person, time and year. Not to place. Moving all 4 extremity spontaneously. 03/19: Sitting up in bed. Appears slightly disoriented. Not in any acute distress. Objective Vital Signs Date Time Temp Pulse Resp B/P (MAP) Pulse Ox O2 Delivery O2 Flow Rate FiO2 03/19/17 10:00 82 03/19/17 09:07 98 21 03/19/17 08:00 100.0 24 153/91 (111) 03/19/17 07:00 Room Air 03/16/17 14:43 10.00 Intake and Output 03/19/17 03/19/17 03/20/17 08:00 16:00 00:00 Intake Total 1278 ml Output Total 1650 ml Balance -372 ml Result Diagram: 03/19/17 0458 03/19/17 0458 Imaging Last Impressions Head CT 03/17/17 0000 Signed Impressions: Service Date/Time: Friday, March 17, 2017 16:46 - CONCLUSION: 1. Old lacunar infarct right basal ganglia and zaragoza radiata. 2. Questionable hyperdensity in the right middle cranial fossa could represent hemorrhage or be artifactual from tenting of the. Recommend further characterization with MRI. Dave Heller MD Objective Remarks Gen: 68-year-old male, resting in bed in no acute distress Head: Atraumatic. Neck: Supple. No JVD or thyromegaly Lungs: Clear, good arpita air movement. Heart: Tachycardic, RR. S1, S2 no S4. Abdomen: Soft nontender nondistended hypoactive bowel sounds Extremities: Well perfused. Muscle mass less left arm and leg. Some edema / redness left upper extremity. Neuro: Pupils 2 mm and reactive bilaterally. Strength 4+ out of 5 right upper, right lower and left upper extremity. 3+ left lower extremity. 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 No obvious hepatomegaly Currently on levetiracetam 1500 mg IV twice a day (level 2I.3), carbamazepine 2 mg 3 times a day (level4.3 ) clonazepam 0.5 mill grams a night Started on fosphenytoin 100 mg IV 3 times a day for possible seizure breakthrough. Lorazepam 1 mg for seizures greater than [address] Zaidi /neurology following CT brain 03/17 revealed old right basal ganglia/zaragoza radiata CVA lacunar. Possible hemorrhage right middle cranial fossa. Recommended MRI brain. Seizure precautions Thiamine 100 mg IV daily 5 days CV: Hypertension dyslipidemia Coronary artery disease On simvastatin 40 mg daily at home - pravastatin 80 mg daily hospital substitution As needed labetalol/hydralazine and enalapril to keep systolic blood pressure less than 170 Restart aspirin [address] head negative for acute bleed Resp: Nasal cannula to maintain saturations greater than equal to 92% Incentive spirometry while awake GI: History of gastric AVM History of Faria's esophagus Colonic diverticulosis History of constipation Possible lower GI bleed - Dr. Reddy following. Hemoglobin stable at 13.6 last night. A.m. till around 12 Currently on pantoprazole 40 mg IV daily Patient is currently nothing by mouth. Speech therapy to evaluate and treat Patient is on psyllium powder for constipation at home TPN instead of PPN was given last night. We'll discontinue along with lipid emulsion : Alvarado catheter if indicated for accurate I's and O's in a critically ill patient Endo: Sliding-scale insulin with Accu-Cheks to maintain euglycemia/low regimen/ Novulin R Renal: Creatinine currently within normal limits Monitor urine output Accurate I's and O's Discontinued IV fluids on 03/19 as patient has adequate by mouth intake. Heme: History of anemia On iron sulfate 140 mg by mouth daily at home. Follow-up CBC ID: Monitor for infection FEN: Replace electrolytes as clinically indicated MSK: PT evaluate and treat Access - Utilize peripheral IV. Central line if indicated Prophylaxis - GI - pantoprazole - DVT - SCD/start heparin subcutaneous if head MRI negative for acute findings Consult and transfer to hospitalist service for further medical management. Critical care will be signing off at this time. Warren Romero MD Mar 19, 2017 12:50
[2017-03-19] MEDS: clonazePAM 0.5 MG TAB PO SCH (21:56)
[2017-03-19] MEDS: PRAVASTATIN SOD 80 MG TAB PO SCH (21:56)
[2017-03-19] MEDS: HALOPERIDOL LACTATE 5 MG/ML AMP IV PUSH PRN (21:56)
[2017-03-20] VITALS: BP 155/75; PULSE 75; RESP 18; TEMP 99.1; O2SAT 95
[2017-03-20 04:00] VITALS: BP 119/69; PULSE 54; RESP 18; TEMP 97.9; O2SAT 97
[2017-03-20] MEDS: INSULIN NovoLIN REGULAR SUPPLEMENTAL SCALE SQ SCH ×6 (04:00→20:00)
[2017-03-20] MEDS: HEPARIN SODIUM - SQ 10,000 UNITS/ML VIAL SQ SCH ×3 (06:38→23:07)
[2017-03-20] MEDS: FOSPHENYTOIN SODIUM 100 MG PE/2 ML VIAL IV SCH ×2 (06:39→13:54)
[2017-03-20 08:00] VITALS: BP 153/78; PULSE 69; RESP 20; TEMP 98.2; O2SAT 94
[2017-03-20] MEDS: PANTOPRAZOLE SOD 40 MG DELAYED RELEASE TAB PO SCH (08:05)
[2017-03-20] MEDS: carBAMazepine 200 MG TAB PO SCH ×2 (08:05→21:52)
[2017-03-20] MEDS: levETIRAcetam 1000 MG INJ 100 ML IV SCH ×2 (08:06→21:41)
[2017-03-20] MEDS: SODIUM CHLORIDE 0.9% FLUSH 10 ML FLUSH IV FLUSH SCH ×2 (08:11→21:00)
[2017-03-20] MEDS: levETIRAcetam 500 MG/NS 100 ML IV SCH ×4 (09:26→21:41)
[2017-03-20 11:53] VITALS: BP 118/64; PULSE 81; RESP 20; TEMP 99; O2SAT 95
--- NOTE | 2017-03-20 11:56 | HHI.PR ---
Subjective Remarks Follow up for GI bleed and seizure disorder. Patient is currently doing well. Last night he was very agitated. No further seizure. Patient's and son at bedside. Objective Vitals Vital Signs Date Time Temp Pulse Resp B/P (MAP) Pulse Ox O2 Delivery O2 Flow Rate FiO2 03/20/17 11:53 99.0 81 20 118/64 (82) 95 03/20/17 08:00 98.2 69 20 153/78 (103) 94 03/20/17 04:00 97.9 54 18 119/69 (86) 97 03/20/17 00:00 99.1 75 18 155/75 (101) 95 03/19/17 22:37 97 Room Air 03/19/17 20:00 98.6 84 18 149/113 (125) 95 03/19/17 16:38 98.7 79 18 132/62 (85) 98 03/19/17 14:00 88 03/19/17 12:00 77 03/19/17 12:00 99.6 77 16 153/81 (105) 96 I/O 03/19/17 03/19/17 03/19/17 03/20/17 03/20/17 03/20/17 07:00 15:00 23:00 07:00 15:00 23:00 Intake Total 1278 ml 1113 ml 100 ml Output Total 1650 ml 850 ml 150 ml 2000 ml Balance -372 ml 263 ml -50 ml -2000 ml Intake Oral 480 ml 250 ml IV Total 798 ml 863 ml 100 ml Output Urine Total 1650 ml 850 ml 150 ml 2000 ml # Bowel Movements 0 Result Diagram: 03/19/17 0458 03/19/17 0458 Imaging Last Impressions Upper Extremity Ultrasound 03/18/17 0000 Signed Impressions: Service Date/Time: March 16:58 - CONCLUSION: Basilic vein thrombosis. K. Nikhil Holloway MD Brain MRI 03/18/17 0000 Signed Impressions: Service Date/Time: March 09:29 - CONCLUSION: Tiny area of subacute infarction in the left centrum semiovale. Atrophy and nonacute microvascular ischemic changes Kevin Ortega MD Head CT 03/17/17 0000 Signed Impressions: Service Date/Time: Wednesday, March 17, 2017 16:46 - CONCLUSION: 1. Old lacunar infarct right basal ganglia and zaragoza radiata. 2. Questionable hyperdensity in the right middle cranial fossa could represent hemorrhage or be artifactual from tenting of the. Recommend further characterization with MRI. Dave Heller MD Objective Remarks GENERAL: Alert, NAD. SKIN: Warm and dry. HEAD: Normocephalic. EYES: No scleral icterus. No injection or drainage. NECK: Supple, trachea midline. No JVD or lymphadenopathy. CARDIOVASCULAR: Regular rate and rhythm without murmurs, gallops, or rubs. RESPIRATORY: Breath sounds equal bilaterally. No accessory muscle use. GASTROINTESTINAL: Abdomen soft, non-tender, nondistended. MUSCULOSKELETAL: No cyanosis, or edema. BACK: Nontender without obvious deformity. No CVA tenderness. Procedures EEG 03.17.2017 INTERPRETATION Improvement from previous EEG over persistent asymmetric right hemispheric slowing with pseudo periodic waves occurring on the right temporal region. No active seizures. Cardiac arrhythmia. Clinical correlation. 03/16/2017 INTERPRETATION Abnormal EEG with asymmetric right hemispheric slowing with right sharp activity and a couple brief bursts of rhythmic activity suggestive of possible partial seizures. This did improve towards the latter part of the recording. Clinical correlation. A/P Problem List: (1) GI bleed ICD Code: K92.2 - Gastrointestinal hemorrhage, unspecified Status: Acute (2) Seizure disorder ICD Code: G40.909 - Epilepsy, unspecified, not intractable, without status epilepticus Status: Chronic Assessment and Plan Mr. Lovell is a 76 years old male with a history of seizure disorder who was admitted to the hospital due to upper GI bleed. He apparently refused his seizure medications because he thought they were wrong dosage. He developed generalized seizure refractory to ativan administration. His seizure stopped after 4mg of Ativan. He was taken to critical care unit and an EEG showed residual seizure activities. He was given versed 5mg IV x 2 after which EEG showed no seizure activities. 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 - Continue carbamazepine 200 mg by mouth twice a day, fosphenytoin 100 mg IV every 8 hours, Keppra 1500 mg every 12 hours - Neurology is closely following patient. - Anxiety - Clonazepam 0.5mg Q8hrs PRN - GI bleed - Yarn Spinner recommended outpatient follow-up. - Hyperlipidemia - continue statin. - Alcohol use - patient drinks 1-2 drinks a day. - His occasional tremors are likely essential tremors. Full code. SCDs. Chayo Gonzalez DO Mar 20, 2017 11:56
--- NOTE | 2017-03-20 11:57 | HHI.PR ---
Review/Management Diagnosis Breakthrough seizures Subacute ischemic stroke at left central semi ovale-tiny Episodes of agitation, resolved Dementia Alcohol abuse Hypertension Hyperlipidemia Left UE swelling? thrombosis at bed side, explained to her the current neurologic status Plan Neuro-checks Q1 h Keppra 1500mg Q12h Carbamazepine 200mg Q12h Aspirin 81mg daily Ativan 1 mg for seizures lasting > 3 minutes Seizure precautions DVT prophylaxis GI prophylaxis CIWA protocol Discussed with and RN Diagnosis/Plan: (1) Temporal lobe epilepsy ICD Codes: G40.209 - Localization-related (focal) (partial) symptomatic epilepsy and epileptic syndromes with complex partial seizures, not intractable , without status epilepticus Status: Chronic Plan: doing better +strong rt temporal lobe sz focus on tegretol/keppra/dilantin recs f/u sz med levels p.t. sz meds on time plz d/w pt/spouse no driving (2) Seizure disorder ICD Codes: G40.909 - Epilepsy, unspecified, not intractable, without status epilepticus Status: Chronic (3) Hematochezia ICD Codes: K92.1 - Melena Status: Acute Subjective Subjective Comments No acute events reported. no sz. doing better No headache No chest pain No dyspnea Active Medications Current Medications Medications (Trade) Dose Ordered Sig/Meli Route Start Time Stop Time Status Last Admin (Tylenol) 650 mg Q4H PRN PO 03/15/17 21:30 (Zofran Inj) 4 mg Q6H PRN IVP 03/15/17 21:30 (Narcan Inj) 0.4 mg UNSCH PRN IV 03/15/17 21:30 (TEGretol) 200 mg BID PO 03/16/17 09:00 03/20/17 08:05 (KlonoPIN) 0.5 mg HS PO 03/16/17 21:00 03/19/17 21:56 (Keppra) 1,500 mg BID PO 03/16/17 09:00 Future Hold (Keppra) 250 mg BID PO 03/16/17 09:00 Future Hold (Catapres) 0.1 mg Q6H PRN PO 03/16/17 11:30 03/19/17 13:40 (NS Flush) 2 ml UNSCH PRN IV FLUSH 03/16/17 11:45 (NS Flush) 2 ml BID IV FLUSH 03/16/17 21:00 9/9/17 08:11 Levetriacetam 100 ml @ 400 mls/hr Q12HR IV 03/16/17 12:30 03/20/17 08:06 Levetriacetam 500 mg/Sodium Chloride 105 ml @ 420 mls/hr Q12HR IV 03/16/17 12:30 03/20/17 09:26 (Apresoline Inj) 10 mg Q2H PRN IV PUSH 03/16/17 13:15 (Vasotec Inj) 2.5 mg Q8H PRN IV PUSH 03/16/17 13:15 03/19/17 03:08 (Pravachol) 80 mg HS PO 03/16/17 22:00 03/19/17 21:56 (Trandate Inj) 10 mg Q1HR PRN IV PUSH 03/17/17 11:00 (Ativan Inj) 1 mg Q1HR PRN IV PUSH 03/17/17 11:00 Thiamine HCl 100 mg/Sodium Chloride 101 ml @ 101 mls/hr Q24H IV 03/18/17 12:00 03/23/17 11:59 03/19/17 12:22 (D50w (Vial) Inj) 50 ml UNSCH PRN IV 03/17/17 11:15 (Glucagon Inj) 1 mg UNSCH PRN OTHER 03/17/17 11:15 (NovoLIN R SUPPLEMENTAL SCALE) 1 Q4HR SQ 03/17/17 16:00 (Cerebyx Inj) 100 mgpe Q8HR IV 03/17/17 22:00 03/20/17 06:39 (Protonix) 40 mg DAILY PO 03/18/17 10:00 03/20/17 08:05 (Heparin Inj) 5,000 units Q8HR SQ 03/18/17 18:00 03/20/17 06:38 (Haldol Inj) 2 mg Q6H PRN IV PUSH 03/19/17 20:45 03/19/17 21:56 Allergies Allergies Coded Allergies No Known Allergies (Verified04/07/16) Review of Systems All other ROS: ROS reviewed as documented in chart Exam I&O / VS Vital Signs Date Time Temp Pulse Resp B/P (MAP) Pulse Ox O2 Delivery O2 Flow Rate FiO2 03/20/17 08:00 98.2 69 20 153/78 (103) 94 03/20/17 04:00 97.9 54 18 119/69 (86) 97 03/20/17 00:00 99.1 75 18 155/75 (101) 95 03/19/17 22:37 97 Room Air 03/19/17 20:00 98.6 84 18 149/113 (125) 95 03/19/17 16:38 98.7 79 18 132/62 (85) 98 03/19/17 14:00 88 03/19/17 12:00 77 03/19/17 12:00 99.6 77 16 153/81 (105) 96 General: Alert and Oriented, No acute distress Eye: EOMI Respiratory: Non-labored respirations Neurologic: Alert, Oriented, Normal sensory, Normal motor, CN II-XII intact, Normal DTR's Psychiatric: Cooperative, Appropriate mood & affect Exam Comments ox 2-3, follows, recognizes me, not exact name, slower cognitive processing, eomi, face sym, waller to gravity Ebenezer Dumont MD Mar 20, 2017 11:57
[2017-03-20] MEDS: THIAMINE INJ 100 MG in SODIUM CHLORIDE 0.9% INJ 100 ML IV SCH (11:59)
[2017-03-20 16:00] VITALS: BP 145/78; PULSE 81; RESP 18; TEMP 98.2; O2SAT 96
[2017-03-20 21:27] VITALS: BP 138/71; PULSE 84; RESP 15; TEMP 98.7; O2SAT 95
[2017-03-20] MEDS: PRAVASTATIN SOD 80 MG TAB PO SCH (21:52)
[2017-03-20] MEDS: FOSPHENYTOIN INJ 100 MGPE in SODIUM CHLORIDE 0.9% INJ 50 ML IV SCH (23:06)
[2017-03-20] MEDS: HALOPERIDOL LACTATE 5 MG/ML AMP IV PUSH PRN (23:06)
[2017-03-21 00:45] VITALS: BP 178/83; PULSE 84; RESP 14; TEMP 99.2; O2SAT 96
[2017-03-21] MEDS: cloNIDine HCL 0.1 MG TAB PO PRN (00:55)
[2017-03-21] MEDS: INSULIN NovoLIN REGULAR SUPPLEMENTAL SCALE SQ SCH ×7 (03:26→22:00)
[2017-03-21 05:18] VITALS: BP 154/77; PULSE 76; RESP 17; TEMP 98.9; O2SAT 95
[2017-03-21] MEDS: HEPARIN SODIUM - SQ 10,000 UNITS/ML VIAL SQ SCH ×3 (06:18→22:00)
[2017-03-21] MEDS: FOSPHENYTOIN INJ 100 MGPE in SODIUM CHLORIDE 0.9% INJ 50 ML IV SCH ×3 (06:19→21:52)
[2017-03-21 08:00] VITALS: BP 153/78; PULSE 80; RESP 18; TEMP 99; O2SAT 94
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
[2017-03-21] MEDS: PANTOPRAZOLE SOD 40 MG DELAYED RELEASE TAB PO SCH (08:13)
[2017-03-21] MEDS: carBAMazepine 200 MG TAB PO SCH ×2 (08:13→20:14)
[2017-03-21] MEDS: levETIRAcetam 1000 MG INJ 100 ML IV SCH ×2 (08:23→20:10)
[2017-03-21] MEDS ORDERED: PILL SPLITTER OTHER PRN (08:30)
[2017-03-21] MEDS: SODIUM CHLORIDE 0.9% FLUSH 10 ML FLUSH IV FLUSH SCH ×2 (09:25→20:21)
[2017-03-21] MEDS: levETIRAcetam 500 MG/NS 100 ML IV SCH ×4 (09:26→20:12)
[2017-03-21] MEDS: amLODIPine BESYLATE 5 MG TAB PO SCH (09:30)
--- NOTE | 2017-03-21 09:45 | HHI.PR ---
Review/Management Diagnosis Breakthrough seizures Subacute ischemic stroke at left central semi ovale-tiny Episodes of agitation, resolved Dementia Alcohol abuse Hypertension Hyperlipidemia Left UE swelling? thrombosis at bed side, explained to her the current neurologic status Plan Neuro-checks Q1 h Keppra 1500mg Q12h Carbamazepine 200mg Q12h Aspirin 81mg daily Ativan 1 mg for seizures lasting > 3 minutes Seizure precautions DVT prophylaxis GI prophylaxis CIWA protocol Discussed with and RN Diagnosis/Plan: (1) Temporal lobe epilepsy ICD Codes: G40.209 - Localization-related (focal) (partial) symptomatic epilepsy and epileptic syndromes with complex partial seizures, not intractable , without status epilepticus Status: Chronic Plan: doing better +strong rt temporal lobe sz focus on tegretol/keppra/dilantin recs f/u sz med levels-LEVELS still PEnding neuro stable p.t. sz meds on time plz Will need INPT rehab d/w pt/spouse no driving (2) Seizure disorder ICD Codes: G40.909 - Epilepsy, unspecified, not intractable, without status epilepticus Status: Chronic (3) Hematochezia ICD Codes: K92.1 - Melena Status: Acute Subjective Subjective Comments No acute events reported slept well on med no sz No headache No chest pain No dyspnea Active Medications Current Medications Medications (Trade) Dose Ordered Sig/Meli Route Start Time Stop Time Status Last Admin (Tylenol) 650 mg Q4H PRN PO 03/15/17 21:30 (Zofran Inj) 4 mg Q6H PRN IVP 03/15/17 21:30 (Narcan Inj) 0.4 mg UNSCH PRN IV 03/15/17 21:30 (TEGretol) 200 mg BID PO 03/16/17 09:00 03/21/17 08:13 (Keppra) 1,500 mg BID PO 03/16/17 09:00 Future Hold (Keppra) 250 mg BID PO 03/16/17 09:00 Future Hold (Catapres) 0.1 mg Q6H PRN PO 03/16/17 11:30 03/21/17 00:55 (NS Flush) 2 ml UNSCH PRN IV FLUSH 03/16/17 11:45 (NS Flush) 2 ml BID IV FLUSH 03/16/17 21:00 03/21/17 09:25 Levetriacetam 100 ml @ 400 mls/hr Q12HR IV 03/16/17 12:30 03/21/17 08:23 Levetriacetam 500 mg/Sodium Chloride 105 ml @ 420 mls/hr Q12HR IV 03/16/17 12:30 03/21/17 09:26 (Apresoline Inj) 10 mg Q2H PRN IV PUSH 03/16/17 13:15 (Vasotec Inj) 2.5 mg Q8H PRN IV PUSH 03/16/17 13:15 03/19/17 03:08 (Pravachol) 80 mg HS PO 03/16/17 22:00 03/20/17 21:52 (Trandate Inj) 10 mg Q1HR PRN IV PUSH 03/17/17 11:00 (Ativan Inj) 1 mg Q1HR PRN IV PUSH 03/17/17 11:00 Thiamine HCl 100 mg/Sodium Chloride 101 ml @ 101 mls/hr Q24H IV 03/18/17 12:00 03/23/17 11:59 03/20/17 11:59 (D50w (Vial) Inj) 50 ml UNSCH PRN IV 03/17/17 11:15 (Glucagon Inj) 1 mg UNSCH PRN OTHER 03/17/17 11:15 (NovoLIN R SUPPLEMENTAL SCALE) 1 Q4HR SQ 03/17/17 16:00 (Protonix) 40 mg DAILY PO 03/18/17 10:00 03/21/17 08:13 (Heparin Inj) 5,000 units Q8HR SQ 03/18/17 18:00 03/21/17 06:18 (Haldol Inj) 2 mg Q6H PRN IV PUSH 03/19/17 20:45 03/20/17 23:06 (KlonoPIN) 0.5 mg TID PRN PO 03/20/17 13:00 Fosphenytoin Sodium 100 mgpe/ Sodium Chloride 52 ml @ 208 mls/hr Q8H IV 03/20/17 23:00 03/21/17 06:19 (Norvasc) 2.5 mg DAILY PO 03/21/17 09:00 03/21/17 09:30 (Pill Splitter) 1 ea UNSCH PRN OTHER 03/21/17 08:30 Allergies Allergies Coded Allergies No Known Allergies (Verified04/07/16) Review of Systems All other ROS: ROS reviewed as documented in chart Exam I&O / VS 03/21/17 03/21/17 03/22/17 14:59 22:59 06:59 Intake Total 100 ml Balance 100 ml IV Total 100 ml Vital Signs Date Time Temp Pulse Resp B/P (MAP) Pulse Ox O2 Delivery O2 Flow Rate FiO2 03/21/17 08:00 99.0 80 18 153/78 (103) 94 03/21/17 05:18 98.9 76 17 154/77 (102) 95 03/21/17 00:45 99.2 84 14 178/83 (114) 96 03/20/17 21:27 98.7 84 15 138/71 (93) 95 03/20/17 17:17 Room Air 03/20/17 16:00 98.2 81 18 145/78 (100) 96 03/20/17 11:53 99.0 81 20 118/64 (82) 95 General: Alert and Oriented, No acute distress Eye: EOMI Respiratory: Non-labored respirations Neurologic: Alert, Oriented, Normal sensory, Normal motor, CN II-XII intact, Normal DTR's Psychiatric: Cooperative, Appropriate mood & affect Exam Comments resting, easily alerts, ox 2-3, follows, recognizes me, not exact name, slower cognitive processing, eomi, face sym, waller to gravity Ebenezer Dumont MD Mar 21, 2017 09:44
[2017-03-21 11:20] LABS: BICARBONATE 24.7 MEQ/L (21.0-32.0); POTASSIUM 3.1 MEQ/L (3.5-5.1)
[2017-03-21] MEDS: THIAMINE INJ 100 MG in SODIUM CHLORIDE 0.9% INJ 100 ML IV SCH (11:55)
[2017-03-21 12:01] VITALS: BP 124/73; PULSE 88; RESP 20; TEMP 97; O2SAT 96
[2017-03-21 15:56] VITALS: BP 117/62; PULSE 85; RESP 20; TEMP 98.5; O2SAT 98
[2017-03-21 20:00] VITALS: BP 134/73; PULSE 82; RESP 20; TEMP 99.5; O2SAT 94
[2017-03-21] MEDS: PRAVASTATIN SOD 80 MG TAB PO SCH (20:13)
[2017-03-22] VITALS: BP 155/68; PULSE 80; RESP 20; TEMP 98.7; O2SAT 94
[2017-03-22] MEDS: HALOPERIDOL LACTATE 5 MG/ML AMP IV PUSH PRN (03:01)
[2017-03-22] MEDS: INSULIN NovoLIN REGULAR SUPPLEMENTAL SCALE SQ SCH ×3 (03:07→11:44)
[2017-03-22] MEDS: clonazePAM 0.5 MG TAB PO PRN ×2 (05:09→14:22)
[2017-03-22] MEDS: FOSPHENYTOIN INJ 100 MGPE in SODIUM CHLORIDE 0.9% INJ 50 ML IV SCH ×2 (06:31→15:23)
[2017-03-22] MEDS: HEPARIN SODIUM - SQ 10,000 UNITS/ML VIAL SQ SCH ×3 (06:34→20:28)
[2017-03-22] MEDS: cloNIDine HCL 0.1 MG TAB PO PRN (06:43)
[2017-03-22 06:45] VITALS: BP 179/95
[2017-03-22 08:00] VITALS: BP 129/87; PULSE 83; RESP 18; TEMP 96.7; O2SAT 97
[2017-03-22] MEDS: amLODIPine BESYLATE 5 MG TAB PO SCH (08:07)
[2017-03-22] MEDS: carBAMazepine 200 MG TAB PO SCH ×2 (08:07→20:27)
[2017-03-22] MEDS: PANTOPRAZOLE SOD 40 MG DELAYED RELEASE TAB PO SCH (08:07)
[2017-03-22] MEDS: levETIRAcetam 1000 MG INJ 100 ML IV SCH ×2 (08:07→20:27)
[2017-03-22] MEDS: SODIUM CHLORIDE 0.9% FLUSH 10 ML FLUSH IV FLUSH SCH ×2 (08:14→20:27)
[2017-03-22] MEDS: levETIRAcetam 500 MG/NS 100 ML IV SCH ×4 (09:09→20:26)
[2017-03-22] MEDS: THIAMINE INJ 100 MG in SODIUM CHLORIDE 0.9% INJ 100 ML IV SCH (11:44)
[2017-03-22 12:06] VITALS: BP 103/66; PULSE 87; RESP 20; TEMP 96.5; O2SAT 100
--- NOTE | 2017-03-22 14:06 | HHI.PR ---
Review/Management Diagnosis Breakthrough seizures Subacute ischemic stroke at left central semi ovale-tiny Episodes of agitation, resolved Dementia Alcohol abuse Hypertension Hyperlipidemia Left UE swelling? thrombosis at bed side, explained to her the current neurologic status Plan Diagnosis/Plan: (1) Temporal lobe epilepsy ICD Codes: G40.209 - Localization-related (focal) (partial) symptomatic epilepsy and epileptic syndromes with complex partial seizures, not intractable , without status epilepticus Status: Chronic Plan: doing better +strong rt temporal lobe sz focus on tegretol/keppra/dilantin recs cbz 5 dil 3.4 neuro stable repeat eeg- has noticed some starring spells and reduced use of left ue additional dilantin bolus xanax 0.5mg prn tid anxiety p.t. Will need INPT rehab d/w pt/spouse Dr. Zaidi to follow in am no driving (2) Seizure disorder ICD Codes: G40.909 - Epilepsy, unspecified, not intractable, without status epilepticus Status: Chronic (3) Hematochezia ICD Codes: K92.1 - Melena Status: Acute Subjective Subjective Comments No acute events reported, insomnia, mild anxiety No headache No chest pain No dyspnea Active Medications Current Medications Medications (Trade) Dose Ordered Sig/Meli Route Start Time Stop Time Status Last Admin (Tylenol) 650 mg Q4H PRN PO 03/15/17 21:30 (Zofran Inj) 4 mg Q6H PRN IVP 03/15/17 21:30 (Narcan Inj) 0.4 mg UNSCH PRN IV 03/15/17 21:30 (TEGretol) 200 mg BID PO 03/16/17 09:00 03/22/17 08:07 (Keppra) 1,500 mg BID PO 03/16/17 09:00 Future Hold (Keppra) 250 mg BID PO 03/16/17 09:00 Future Hold (Catapres) 0.1 mg Q6H PRN PO 03/16/17 11:30 03/22/17 06:43 (NS Flush) 2 ml UNSCH PRN IV FLUSH 03/16/17 11:45 (NS Flush) 2 ml BID IV FLUSH 03/16/17 21:00 03/22/17 08:14 Levetriacetam 100 ml @ 400 mls/hr Q12HR IV 03/16/17 12:30 03/22/17 08:07 Levetriacetam 500 mg/Sodium Chloride 105 ml @ 420 mls/hr Q12HR IV 03/16/17 12:30 03/22/17 09:09 (Apresoline Inj) 10 mg Q2H PRN IV PUSH 03/16/17 13:15 (Vasotec Inj) 2.5 mg Q8H PRN IV PUSH 03/16/17 13:15 03/19/17 03:08 (Pravachol) 80 mg HS PO 03/16/17 22:00 03/21/17 20:13 (Trandate Inj) 10 mg Q1HR PRN IV PUSH 03/17/17 11:00 (Ativan Inj) 1 mg Q1HR PRN IV PUSH 03/17/17 11:00 Thiamine HCl 100 mg/Sodium Chloride 101 ml @ 101 mls/hr Q24H IV 03/18/17 12:00 03/23/17 11:59 03/22/17 11:44 (Protonix) 40 mg DAILY PO 03/18/17 10:00 03/22/17 08:07 (Heparin Inj) 5,000 units Q8HR SQ 03/18/17 18:00 03/22/17 06:34 (Haldol Inj) 2 mg Q6H PRN IV PUSH 03/19/17 20:45 03/22/17 03:01 (KlonoPIN) 0.5 mg TID PRN PO 03/20/17 13:00 03/22/17 05:09 Fosphenytoin Sodium 100 mgpe/ Sodium Chloride 52 ml @ 208 mls/hr Q8H IV 03/20/17 23:00 03/22/17 06:31 (Norvasc) 2.5 mg DAILY PO 03/21/17 09:00 03/22/17 08:07 (Pill Splitter) 1 ea UNSCH PRN OTHER 03/21/17 08:30 (SEROquel) 50 mg HS PO 03/22/17 21:00 Allergies Allergies Coded Allergies No Known Allergies (Verified04/07/16) Review of Systems All other ROS: ROS reviewed as documented in chart Exam I&O / VS 03/22/17 03/22/17 03/23/17 15:00 23:00 07:00 Intake Total 685 ml Balance 685 ml Intake Oral 480 ml IV Total 205 ml # Voids 2 Vital Signs Date Time Temp Pulse Resp B/P (MAP) Pulse Ox O2 Delivery O2 Flow Rate FiO2 03/22/17 12:06 96.5 87 20 103/66 (78) 100 03/22/17 08:00 96.7 83 18 129/87 (101) 97 03/22/17 06:45 179/95 (123) 03/22/17 00:00 98.7 80 20 155/68 (97) 94 03/21/17 20:53 94 Room Air 03/21/17 20:00 99.5 82 20 134/73 (93) 94 03/21/17 15:56 98.5 85 20 117/62 (80) 98 General: Alert and Oriented, No acute distress Eye: EOMI Respiratory: Non-labored respirations Neurologic: Alert, Normal sensory, CN II-XII intact, Normal DTR's Psychiatric: Cooperative, Appropriate mood & affect Exam Comments alert, sitting up in chair, ox 2-3, follows, recognizes me, dysphonic speech, slower cognitive processing, eomi, face sym, waller to gravity, some left ue apraxia Objective Micro and Labs Laboratory Tests Test 03/22/17 08:03 Phenytoin (Dilantin) Level 3.4 Ebenezer Dumont MD Mar 22, 2017 14:06
[2017-03-22] MEDS ORDERED: FOSPHENYTOIN INJ 1,000 MGPE in SODIUM CHLORIDE 0.9% INJ 50 ML IV ONE (15:00)
[2017-03-22] MEDS ORDERED: ALPRAZolam 0.5 MG TAB PO PRN (15:15)
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
[2017-03-22] MEDS: QUEtiapine FUMARATE 100 MG TAB PO SCH (19:39)
[2017-03-22 20:00] VITALS: BP 122/72; PULSE 81; RESP 20; TEMP 98.2; O2SAT 96
[2017-03-22] MEDS: PRAVASTATIN SOD 80 MG TAB PO SCH (20:27)
[2017-03-22 23:41] VITALS: BP 120/75; PULSE 80; RESP 22; TEMP 97.9; O2SAT 95
[2017-03-23] VITALS (8 sets, daily range): BP systolic 125–157; BP diastolic 69–88; PULSE 76–81; RESP 18–20; TEMP 98–98.5; O2SAT 94–98
[2017-03-23] MEDS: FOSPHENYTOIN INJ 100 MGPE in SODIUM CHLORIDE 0.9% INJ 50 ML IV SCH ×3 (00:07→15:35)
[2017-03-23] MEDS: HEPARIN SODIUM - SQ 10,000 UNITS/ML VIAL SQ SCH ×3 (06:45→22:16)
[2017-03-23] MEDS: SODIUM CHLORIDE 0.9% FLUSH 10 ML FLUSH IV FLUSH SCH ×2 (09:20→22:15)
[2017-03-23] MEDS: levETIRAcetam 1000 MG INJ 100 ML IV SCH (09:21)
[2017-03-23] MEDS: levETIRAcetam 500 MG/NS 100 ML IV SCH ×2 (09:21)
[2017-03-23] MEDS: PANTOPRAZOLE SOD 40 MG DELAYED RELEASE TAB PO SCH (09:23)
[2017-03-23] MEDS: amLODIPine BESYLATE 5 MG TAB PO SCH (09:23)
[2017-03-23] MEDS: carBAMazepine 200 MG TAB PO SCH (09:23)
--- NOTE | 2017-03-23 13:14 | HHI.PR ---
Subjective Remarks Follow up for GI bleed and seizure disorder. Patient is currently doing well. Somewhat drowsy. Per , patient had a good night and slept well. No overnight agitation. No fever or chills. Objective Vitals Vital Signs Date Time Temp Pulse Resp B/P (MAP) Pulse Ox O2 Delivery O2 Flow Rate FiO2 03/23/17 12:00 98.2 76 20 136/69 (91) 96 03/23/17 08:25 94 21 03/23/17 08:00 98.5 76 20 144/85 (104) 95 03/23/17 04:00 98.1 81 20 157/88 (111) 95 03/22/17 23:41 97.9 80 22 120/75 (90) 95 03/22/17 20:00 98.2 81 20 122/72 (89) 96 I/O 03/22/17 03/22/17 03/22/17 03/23/17 03/23/17 03/23/17 06:59 14:59 22:59 06:59 14:59 22:59 Intake Total 786 ml 52 ml Balance 786 ml 52 ml Intake Oral 480 ml IV Total 306 ml 52 ml # Voids 1 2 2 Result Diagram: 03/19/17 0458 03/21/17 1035 Imaging Last Impressions Upper Extremity Ultrasound 03/18/17 0000 Signed Impressions: Service Date/Time: March 16:58 - CONCLUSION: Basilic vein thrombosis. K. Nikhil Holloway MD Brain MRI 03/18/17 0000 Signed Impressions: Service Date/Time: March 09:29 - CONCLUSION: Tiny area of subacute infarction in the left centrum semiovale. Atrophy and nonacute microvascular ischemic changes Kevin Ortega MD Head CT 03/17/17 0000 Signed Impressions: Service Date/Time: Friday, March 17, 2017 16:46 - CONCLUSION: 1. Old lacunar infarct right basal ganglia and zaragoza radiata. 2. Questionable hyperdensity in the right middle cranial fossa could represent hemorrhage or be artifactual from tenting of the. Recommend further characterization with MRI. Dave Heller MD Objective Remarks GENERAL: Alert, NAD. SKIN: Warm and dry. HEAD: Normocephalic. EYES: No scleral icterus. No injection or drainage. NECK: Supple, trachea midline. No JVD or lymphadenopathy. CARDIOVASCULAR: Regular rate and rhythm without murmurs, gallops, or rubs. RESPIRATORY: Breath sounds equal bilaterally. No accessory muscle use. GASTROINTESTINAL: Abdomen soft, non-tender, nondistended. MUSCULOSKELETAL: No cyanosis, or edema. BACK: Nontender without obvious deformity. No CVA tenderness. Procedures EEG 03.17.2017 INTERPRETATION Improvement from previous EEG over persistent asymmetric right hemispheric slowing with pseudo periodic waves occurring on the right temporal region. No active seizures. Cardiac arrhythmia. Clinical correlation. 03/16/2017 INTERPRETATION Abnormal EEG with asymmetric right hemispheric slowing with right sharp activity and a couple brief bursts of rhythmic activity suggestive of possible partial seizures. This did improve towards the latter part of the recording. Clinical correlation. A/P Problem List: (1) GI bleed ICD Code: K92.2 - Gastrointestinal hemorrhage, unspecified Status: Acute (2) Seizure disorder ICD Code: G40.909 - Epilepsy, unspecified, not intractable, without status epilepticus Status: Chronic Assessment and Plan Mr. Lovell is a 76 years old male with a history of seizure disorder who was admitted to the hospital due to upper GI bleed. He apparently refused his seizure medications because he thought they were wrong dosage. He developed generalized seizure refractory to ativan administration. His seizure stopped after 4mg of Ativan. He was taken to critical care unit and an EEG showed residual seizure activities. He was given versed 5mg IV x 2 after which EEG showed no seizure activities. 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 - Continue carbamazepine 200 mg by mouth twice a day, fosphenytoin 100 mg IV every 8 hours, Keppra 1500 mg every 12 hours - Neurology is closely following patient. Hopefully we can switch IV meds to PO soon. - Anxiety - Acute night time Delirium - Clonazepam 0.5mg Q8hrs PRN. We will avoid night time Xanax. - Continue Seroquel 50mg QHS - GI bleed - Pulper Operator recommended outpatient follow-up. - Hyperlipidemia - continue statin. - Hypertension - low dose Amlodipine 2.5mg Qday. - Alcohol use - patient drinks 1-2 drinks a day. - His occasional tremors are likely essential tremors. Full code. SCDs. Discharge plan: D/C when okay with Neurology. We will request PT to see patient today again. Chayo Gonzalez DO Mar 23, 2017 13:14
--- NOTE | 2017-03-23 19:08 | HHI.PR ---
Review/Management Diagnosis Breakthrough seizures Subacute ischemic stroke at left central semi ovale-tiny Episodes of agitation, resolved Dementia Alcohol abuse Hypertension Hyperlipidemia Left UE swelling? thrombosis at bed side, explained to her the current neurologic status Plan Diagnosis/Plan: (1) Temporal lobe epilepsy ICD Codes: G40.209 - Localization-related (focal) (partial) symptomatic epilepsy and epileptic syndromes with complex partial seizures, not intractable , without status epilepticus Status: Chronic Plan: doing better +strong rt temporal lobe sz focus on tegretol/keppra/dilantin recs change sz meds to po doing alot better today p.t. Will need INPT rehab- [facility] d/w pt/spouse no driving (2) Seizure disorder ICD Codes: G40.909 - Epilepsy, unspecified, not intractable, without status epilepticus Status: Chronic (3) Hematochezia ICD Codes: K92.1 - Melena Status: Acute Subjective Subjective Comments No acute events reported slept well; no sz; feels he is doing well No headache No chest pain No dyspnea Active Medications Current Medications Medications (Trade) Dose Ordered Sig/Meli Route Start Time Stop Time Status Last Admin (Tylenol) 650 mg Q4H PRN PO 03/15/17 21:30 (Zofran Inj) 4 mg Q6H PRN IVP 03/15/17 21:30 (Narcan Inj) 0.4 mg UNSCH PRN IV 03/15/17 21:30 (TEGretol) 200 mg BID PO 03/16/17 09:00 03/23/17 09:23 (Keppra) 1,500 mg BID PO 03/16/17 09:00 Future Hold (Keppra) 250 mg BID PO 03/16/17 09:00 Future Hold (Catapres) 0.1 mg Q6H PRN PO 03/16/17 11:30 03/22/17 06:43 (NS Flush) 2 ml UNSCH PRN IV FLUSH 03/16/17 11:45 (NS Flush) 2 ml BID IV FLUSH 03/16/17 21:00 03/23/17 09:20 Levetriacetam 100 ml @ 400 mls/hr Q12HR IV 03/16/17 12:30 03/23/17 09:21 Levetriacetam 500 mg/Sodium Chloride 105 ml @ 420 mls/hr Q12HR IV 03/16/17 12:30 03/23/17 09:21 (Apresoline Inj) 10 mg Q2H PRN IV PUSH 03/16/17 13:15 (Vasotec Inj) 2.5 mg Q8H PRN IV PUSH 03/16/17 13:15 03/19/17 03:08 (Pravachol) 80 mg HS PO 03/16/17 22:00 03/22/17 20:27 (Trandate Inj) 10 mg Q1HR PRN IV PUSH 03/17/17 11:00 (Ativan Inj) 1 mg Q1HR PRN IV PUSH 03/17/17 11:00 (Protonix) 40 mg DAILY PO 03/18/17 10:00 03/23/17 09:23 (Heparin Inj) 5,000 units Q8HR SQ 03/18/17 18:00 03/23/17 14:35 (Haldol Inj) 2 mg Q6H PRN IV PUSH 03/19/17 20:45 03/22/17 03:01 (KlonoPIN) 0.5 mg TID PRN PO 03/20/17 13:00 03/22/17 14:22 Fosphenytoin Sodium 100 mgpe/ Sodium Chloride 52 ml @ 208 mls/hr Q8H IV 03/20/17 23:00 03/23/17 15:35 (Norvasc) 2.5 mg DAILY PO 03/21/17 09:00 03/23/17 09:23 (Pill Splitter) 1 ea UNSCH PRN OTHER 03/21/17 08:30 (SEROquel) 50 mg HS PO 03/22/17 21:00 03/22/17 19:39 (Xanax) 0.5 mg Q8H PRN PO 03/22/17 15:15 03/22/17 15:22 Allergies Allergies Coded Allergies No Known Allergies (Verified04/07/16) Review of Systems All other ROS: ROS reviewed as documented in chart Exam I&O / VS 03/23/17 03/23/17 03/24/17 15:00 23:00 07:00 Intake Total 360 ml Balance 360 ml Intake Oral 360 ml # Voids 3 # Bowel Movements 0 Vital Signs Date Time Temp Pulse Resp B/P (MAP) Pulse Ox O2 Delivery O2 Flow Rate FiO2 03/23/17 18:28 96 21 03/23/17 16:35 98.0 77 20 125/82 (96) 96 03/23/17 12:00 98.2 76 20 136/69 (91) 96 03/23/17 08:25 94 21 03/23/17 08:00 98.5 76 20 144/85 (104) 95 03/23/17 04:00 98.1 81 20 157/88 (111) 95 03/22/17 23:41 97.9 80 22 120/75 (90) 95 03/22/17 20:00 98.2 81 20 122/72 (89) 96 General: Alert and Oriented, No acute distress Eye: EOMI Respiratory: Non-labored respirations Neurologic: Alert, Normal sensory, CN II-XII intact, Normal DTR's Psychiatric: Cooperative, Appropriate mood & affect Exam Comments alert, sitting up in chair, more calm and interactive, ox 2-3, follows, recognizes me, dysphonic speech, eomi, face sym, waller to gravity, no apraxia Objective Micro and Labs Laboratory Tests Test 03/23/17 13:26 Phenytoin (Dilantin) Level 7.9 Ebenezer Dumont MD Mar 23, 2017 19:08
[2017-03-23] MEDS: PHENYTOIN SUSP 100 MG/4 ML CUP PO SCH (22:14)
[2017-03-23] MEDS: levETIRAcetam 500 MG TAB PO SCH (22:14)
[2017-03-23] MEDS: PRAVASTATIN SOD 80 MG TAB PO SCH (22:15)
[2017-03-23] MEDS: QUEtiapine FUMARATE 100 MG TAB PO SCH (22:15)
[2017-03-24 04:00] VITALS: BP 167/78; PULSE 70; RESP 18; TEMP 98.4; O2SAT 93
[2017-03-24] MEDS: PHENYTOIN SUSP 100 MG/4 ML CUP PO SCH ×2 (04:46→12:16)
[2017-03-24] MEDS: cloNIDine HCL 0.1 MG TAB PO PRN (04:46)
[2017-03-24] MEDS: HEPARIN SODIUM - SQ 10,000 UNITS/ML VIAL SQ SCH ×2 (04:47→12:16)
--- NOTE | 2017-03-24 07:55 | HHI.PR ---
Review/Management Diagnosis Breakthrough seizures Subacute ischemic stroke at left central semi ovale-tiny Episodes of agitation, resolved Dementia Alcohol abuse Hypertension Hyperlipidemia Left UE swelling? thrombosis at bed side, explained to her the current neurologic status Plan Diagnosis/Plan: (1) Temporal lobe epilepsy ICD Codes: G40.209 - Localization-related (focal) (partial) symptomatic epilepsy and epileptic syndromes with complex partial seizures, not intractable , without status epilepticus Status: Chronic Plan: doing better +strong rt temporal lobe sz focus on tegretol/keppra/dilantin recs neuro stable sz med levels pending continue on all 3 sz meds for now; will titrate off dilantin in office p.t. Will need INPT rehab- [facility] today d/w pt/spouse no driving (2) Seizure disorder ICD Codes: G40.909 - Epilepsy, unspecified, not intractable, without status epilepticus Status: Chronic (3) Hematochezia ICD Codes: K92.1 - Melena Status: Acute Subjective Subjective Comments No acute events reported; slept off/on No headache No chest pain No dyspnea Active Medications Current Medications Medications (Trade) Dose Ordered Sig/Meli Route Start Time Stop Time Status Last Admin (Tylenol) 650 mg Q4H PRN PO 03/15/17 21:30 (Zofran Inj) 4 mg Q6H PRN IVP 03/15/17 21:30 (Narcan Inj) 0.4 mg UNSCH PRN IV 03/15/17 21:30 (Keppra) 1,500 mg BID PO 03/16/17 09:00 Future Hold (Keppra) 250 mg BID PO 03/16/17 09:00 Future Hold (Catapres) 0.1 mg Q6H PRN PO 03/16/17 11:30 03/24/17 04:46 (NS Flush) 2 ml UNSCH PRN IV FLUSH 03/16/17 11:45 (NS Flush) 2 ml BID IV FLUSH 03/16/17 21:00 03/23/17 22:15 (Apresoline Inj) 10 mg Q2H PRN IV PUSH 03/16/17 13:15 (Vasotec Inj) 2.5 mg Q8H PRN IV PUSH 03/16/17 13:15 03/19/17 03:08 (Pravachol) 80 mg HS PO 03/16/17 22:00 03/23/17 22:15 (Trandate Inj) 10 mg Q1HR PRN IV PUSH 03/17/17 11:00 (Ativan Inj) 1 mg Q1HR PRN IV PUSH 03/17/17 11:00 (Protonix) 40 mg DAILY PO 03/18/17 10:00 03/23/17 09:23 (Heparin Inj) 5,000 units Q8HR SQ 03/18/17 18:00 03/24/17 04:47 (Haldol Inj) 2 mg Q6H PRN IV PUSH 03/19/17 20:45 03/22/17 03:01 (KlonoPIN) 0.5 mg TID PRN PO 03/20/17 13:00 03/22/17 14:22 (Norvasc) 2.5 mg DAILY PO 03/21/17 09:00 03/23/17 09:23 (Pill Splitter) 1 ea UNSCH PRN OTHER 03/21/17 08:30 (SEROquel) 50 mg HS PO 03/22/17 21:00 03/23/17 22:15 (Xanax) 0.5 mg Q8H PRN PO 03/22/17 15:15 03/22/17 15:22 (TEGretol CHEW) 300 mg BID PO 03/23/17 21:00 (Dilantin Liq) 130 mg Q8H PO 03/23/17 20:00 03/24/17 04:46 (Keppra) 1,500 mg Q12H PO 03/23/17 20:00 03/23/17 22:14 Allergies Allergies Coded Allergies No Known Allergies (Verified04/07/16) Review of Systems All other ROS: ROS reviewed as documented in chart Exam I&O / VS Vital Signs Date Time Temp Pulse Resp B/P (MAP) Pulse Ox O2 Delivery O2 Flow Rate FiO2 03/24/17 04:00 98.4 70 18 167/78 (107) 93 03/23/17 20:00 98.0 81 18 128/80 (96) 98 03/23/17 18:28 96 21 03/23/17 16:35 98.0 77 20 125/82 (96) 96 03/23/17 12:00 98.2 76 20 136/69 (91) 96 03/23/17 08:25 94 21 03/23/17 08:00 98.5 76 20 144/85 (104) 95 General: Alert and Oriented, No acute distress Eye: EOMI Respiratory: Non-labored respirations Neurologic: Alert, Normal sensory, CN II-XII intact, Normal DTR's Psychiatric: Cooperative, Appropriate mood & affect Exam Comments alert, ox 2-3, follows, pleasant, appropriate, recognizes me, dysphonic speech , eomi, face sym, waller to gravity, no apraxia Objective Micro and Labs Laboratory Tests Test 03/23/17 13:26 Phenytoin (Dilantin) Level 7.9 Carbamazepine (Tegretol) Level 5.4 Ebenezer Dumont MD Mar 24, 2017 07:55
[2017-03-24 08:10] VITALS: BP 155/75; PULSE 71; RESP 18; TEMP 97.9; O2SAT 95
--- NOTE | 2017-03-24 08:35 | MG ---
cc: EBONY SANDERS M.D. Lab No: [id number] Date: 03/23/2017 Age: 76 Sex: M Race: TECHNIQUE 17-channel EEG. DESCRIPTION The background rhythm starts out with a general slow rhythm in the theta range at roughly 6 Hz, amplitude is 20 microvolts. This rhythm is maintained throughout the tracing, basically moderately slow in a diffuse fashion. There are no lateralizing features. There are no epileptiform discharges. Photic results denotes a poor driving response. INTERPRETATION Mildly abnormal study consistent with very mild degree of encephalopathy. MD WHITNEY Valenzuela/NELLIE /1:16 PM /8:23 AM
[2017-03-24] MEDS: SODIUM CHLORIDE 0.9% FLUSH 10 ML FLUSH IV FLUSH SCH (09:00)
[2017-03-24] MEDS: amLODIPine BESYLATE 5 MG TAB PO SCH (09:07)
[2017-03-24] MEDS: PANTOPRAZOLE SOD 40 MG DELAYED RELEASE TAB PO SCH (09:07)
[2017-03-24] MEDS: levETIRAcetam 500 MG TAB PO SCH (09:07)
[2017-03-24 12:06] VITALS: BP 116/70; PULSE 72; RESP 20; TEMP 97.9; O2SAT 97
[2017-03-24] MEDS ORDERED: PHEN125S9 PO (12:40)
[2017-03-24] MEDS ORDERED: CARB100C PO (12:40)
[2017-03-24] MEDS ORDERED: AMLO5 PO (12:40)
[2017-03-24] MEDS ORDERED: ALPR.5 PO (12:42)
[2017-03-24] MEDS ORDERED: SERO50TA PO (12:44)
[2017-03-24 12:47] VITALS: O2SAT 98
--- NOTE | 2017-03-24 12:47 | HHI.DS ---
Discharge Summary Admission Date Mar 15, 2017 at 9:33 pm Discharge Date: Mar 24, 2017 Admitting Diagnosis GI bleed (1) GI bleed ICD Code: K92.2 - Gastrointestinal hemorrhage, unspecified Diagnosis: Principal Status: Acute (2) Seizure disorder ICD Code: G40.909 - Epilepsy, unspecified, not intractable, without status epilepticus Diagnosis: Principal Status: Chronic Procedures EEG 03.17.2017 INTERPRETATION Improvement from previous EEG over persistent asymmetric right hemispheric slowing with pseudo periodic waves occurring on the right temporal region. No active seizures. Cardiac arrhythmia. Clinical correlation. 03/16/2017 INTERPRETATION Abnormal EEG with asymmetric right hemispheric slowing with right sharp activity and a couple brief bursts of rhythmic activity suggestive of possible partial seizures. This did improve towards the latter part of the recording. Clinical correlation. Brief History - From Admission 76 years old male with history of hypertension diverticulosis alcohol dependence home seizure disorder presented to the ED with a complaint of bloody stool, patient stated his stool initially was bright and slowly become very black and tarry. Patient denied dizziness headache blurry vision palpitation chest pain short of breath abdominal pain nausea vomiting, weight loss, he did have endoscopy 9 month ago nothing significant he is aware of, except some polyps. Patient follow up with Dr. Lynnette GOLDSTEIN. CBC/BMP: 03/21/17 1035 Significant Findings Laboratory Tests Test 03/22/17 08:03 03/23/17 13:26 03/24/17 12:06 Phenytoin (Dilantin) Level 3.4 MCG/ML (10.0-20.0) 7.9 MCG/ML (10.0-20.0) Imaging Last Impressions Upper Extremity Ultrasound 03/18/17 0000 Signed Impressions: Service Date/Time: March 16:58 - CONCLUSION: Basilic vein thrombosis. Wanda Holloway MD Brain MRI 03/18/17 0000 Signed Impressions: Service Date/Time: March 09:29 - CONCLUSION: Tiny area of subacute infarction in the left centrum semiovale. Atrophy and nonacute microvascular ischemic changes Kevin Ortega MD Head CT 03/17/17 0000 Signed Impressions: Service Date/Time: Friday, March 17, 2017 16:46 - CONCLUSION: 1. Old lacunar infarct right basal ganglia and zaragoza radiata. 2. Questionable hyperdensity in the right middle cranial fossa could represent hemorrhage or be artifactual from tenting of the. Recommend further characterization with MRI. Dave Heller MD PE at Discharge GENERAL: Alert, NAD. SKIN: Warm and dry. HEAD: Normocephalic. EYES: No scleral icterus. No injection or drainage. NECK: Supple, trachea midline. No JVD or lymphadenopathy. CARDIOVASCULAR: Regular rate and rhythm without murmurs, gallops, or rubs. RESPIRATORY: Breath sounds equal bilaterally. No accessory muscle use. GASTROINTESTINAL: Abdomen soft, non-tender, nondistended. MUSCULOSKELETAL: No cyanosis, or edema. BACK: Nontender without obvious deformity. No CVA tenderness. Pt update on day of discharge Follow up for GI bleed, Seizure disorder. Patient is doing well, sitting in his chair. Did not sleep well last night. No other acute concerns. Hospital Course Mr. Lovell is a 76 years old male with a history of seizure disorder who was admitted to the hospital due to upper GI bleed. He apparently refused his seizure medications because he thought they were wrong dosage. He developed generalized seizure refractory to ativan administration. His seizure stopped after 4mg of Ativan. He was taken to critical care unit and an EEG showed residual seizure activities. He was given versed 5mg IV x 2 after which EEG showed no seizure activities. 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 - Subacute infarction of the left centrum semiovale. - Continue carbamazepine 300 mg by mouth twice a day, Phenytoin 130mg Q8hrs, Keppra 1500 mg every 12 hours - Neurology closely followed patient. - Continue Aspirin 81mg Qday. - Anxiety - Acute night time Delirium - Xanax 0.5mg Q8hrs PRN. We will avoid night time Xanax. - Continue Seroquel 50mg QHS - GI bleed - Dredge Operator recommended outpatient follow-up. - Hyperlipidemia - continue statin. - Hypertension - low dose Amlodipine 2.5mg Qday. - Alcohol use - patient drinks 1-2 drinks a day. - His occasional tremors are likely essential tremors. Full code. SCDs. Pt Condition on Discharge: Good Discharge Disposition: Rehab Inpatient Discharge Time: > 30 minutes Discharge Instructions DIET: Follow Instructions for: Heart Healthy Diet Speech Therapy-Diet Recommends: Mechanical Soft Activities you can perform: Regular-No Restrictions Follow up Referrals: Neurology - 2 Weeks with Ebenezer Dumont MD New Medications: Quetiapine (Seroquel) 50 Mg Tab 50 MG PO HS for Anxiety and/or Insomnia, #30 TAB 0 Refills Alprazolam (Xanax) 0.5 Mg Tab 0.5 MG PO Q8H PRN for ANXIETY, #30 TAB Amlodipine (Norvasc) 5 Mg Tab 2.5 MG PO DAILY for Blood Pressure Management, #30 TAB Carbamazepine (Carbamazepine) 100 Mg Chew 300 MG PO BID for Seizure Control, #60 EA Phenytoin (Phenytoin) 100 Mg/4 Ml Oral.susp 130 MG PO Q8H for Seizure Control, #90 BOTTLE Continued Medications: Aspirin (Aspirin) 81 Mg Chew 81 MG CHEW DAILY, TAB 0 Refills B-Complex W/ C & Folic Acid (Nephro-Cecilia) 1 Tab 1 TAB PO DAILY for Nutritional Supplement, #30 TAB 0 Refills Ferrous Sulfate ER (Ferrous Sulfate ER) 140 Mg (45 Mg Iron) Tab 140 MG PO DAILY for Nutritional Supplement, #30 TAB 0 Refills Levetiracetam (Keppra) 1,000 Mg Tab 1500 MG PO BID for Control Seizures, #60 TAB 0 Refills Pantoprazole (Protonix) 40 Mg Tab 40 MG PO DAILY for Reflux, #30 TAB 0 Refills Psyllium Powder (Metamucil Original Texture) 3.4 Gram/7 Gram Pow 1 SCOOP PO TID PRN for CONSTIPATION, CONTAINER 0 Refills 1 rounded TEASPOON in 8 oz of liquid at the first sign of irregularity. Discontinued Medications: Carbamazepine (Tegretol) 200 Mg Tab 200 MG PO BID, #60 TAB 0 Refills Clonazepam (Klonopin) 0.5 Mg Tab 0.5 MG PO HS, #60 TAB 0 Refills Levetiracetam (Keppra) 250 Mg Tab 250 MG PO BID for Control Seizures, #60 TAB 0 Refills Simvastatin (Simvastatin) 40 Mg Tab 40 MG PO HS for Cholesterol Management, #30 TAB 0 Refills Chayo Gonzalez DO Mar 24, 2017 12:47
[2017-04-07] MEDS ORDERED: Shower Chair (13:15)
[2017-04-07] MEDS ORDERED: TRANSPORT CHAIR1 MIS (13:15)
[2017-04-07] MEDS ORDERED: COMMODE 3-IN-11 MIS (13:15)
[2017-04-09] MEDS ORDERED: ABIL2TAB2 PO (08:31)
[2017-04-09] MEDS ORDERED: NEPHTAB3 PO (08:31)
[2017-04-09] MEDS ORDERED: ASPI81CH CHEW (08:31)
[2017-04-09] MEDS ORDERED: FERR140T PO (08:31)
[2017-04-09] MEDS ORDERED: ACET1TAB86 PO (08:31)
[2017-04-09] MEDS ORDERED: META48.53 PO (08:31)
[2017-04-09] MEDS ORDERED: AMLO5 PO (08:31)
[2017-04-09] MEDS ORDERED: KEPP10002 PO (08:31)
[2017-04-09] MEDS ORDERED: PHEN125S9 PO (08:31)
[2017-04-09] MEDS ORDERED: TAMS5CAP PO (08:31)
[2017-04-09] MEDS ORDERED: PROT40TA PO (08:31)
[2017-04-09] MEDS ORDERED: CARB100C PO (08:31)
[2017-04-09] MEDS ORDERED: SENN1TAB PO (08:36)
== END 2017-03-24 14:06 | DRG 378 ==
LOC: NEPC 17:11 → NEDA 19:31 → OBSVTOIN 21:33 → N06B 22:50 → N03B 03-16 12:14 → N05B 03-19 14:45
PROVIDERS: ADMIT Hospitalist; ATTEND Hospitalist
DX: K92.1 Melena (principal); I69.359 Hemiplegia and hemiparesis following cerebral infarction affecting unspecified side; D64.9 Anemia, unspecified; G40.909 Epilepsy, unspecified, not intractable, without status epilepticus; I10 Essential (primary) hypertension; K57.90 Diverticulosis of intestine, part unspecified, without perforation or abscess without bleeding; K22.70 Barrett's esophagus without dysplasia; F10.10 Alcohol abuse, uncomplicated; E78.5 Hyperlipidemia, unspecified; F41.8 Other specified anxiety disorders; Z79.82 Long term (current) use of aspirin; G25.0 Essential tremor; I49.9 Cardiac arrhythmia, unspecified; I25.10 Atherosclerotic heart disease of native coronary artery without angina pectoris; K21.9 Gastro-esophageal reflux disease without esophagitis; K59.00 Constipation, unspecified; Z79.899 Other long term (current) drug therapy
CPT/HCPCS: 70450; 70551; 76937; 80048; 80053; 80156; 80177; 80185; 81001; 82140; 82150; 82550; 82552; 82948; 82977; 83605; 83690; 83735; 84100; 84443; 85014; 85018; 85025; 85027; 85610; 85730; 86850; 86900; 86901; 93971; 95819; 96374; C9113; J1630; J1644; J1953; J2060; J2250; J3411; J3475; J7030; Q2009

== ENCOUNTER 2017-04-28 13:34 | Inpatient (IN) | payer MEDICARE, OTHER ==
[~2017-04-28] VITALS: Ht 185.4 cm; Wt 67.2 kg
[~2017-04-28 13:34] MED LIST changes: +ABIL2TAB2 PO; +ACET1TAB86 PO; +AMLO5 PO; +ASPI81CH CHEW; -ASPI81TA17 PO; -B COTAB3 PO; +CARB100C PO; -CARB200 PO; -CLON1 PO; +COMMODE 3-IN-11 MIS; +KEPP10002 PO; -LEVE500 PO; +META48.53 PO; -MULT-65 PO; +NEPHTAB3 PO; +PHEN125S9 PO; +PROT40TA PO; +SENN1TAB PO; +Shower Chair; +TAMS5CAP PO; +TRANSPORT CHAIR1 MIS; -ZOCO40TA PO
[2017-04-28 15:12] VITALS: BP 99/63; PULSE 69; RESP 15; TEMP 97.6; O2SAT 98
[2017-04-28] MEDS ORDERED: LORazepam 2 MG/ML VIAL IV PUSH ONE ×2 (15:15→17:30)
[2017-04-28] MEDS ORDERED: SODIUM CHLORIDE 0.9% FLUSH 10 ML FLUSH IVF PRN (15:15)
[2017-04-28] MEDS ORDERED: LORazepam 2 MG/ML VIAL ONE (15:16)
--- NOTE | 2017-04-28 15:49 | PD ---
Physical Exam Time Seen by Provider: 15:46 Narrative 76-year-old male with history of CVA with left-sided deficits and seizure disorder, presents to the emergency department for evaluation of worsening left- sided weakness per the family and the patient having an episode where he was again seen to the right with a "angry look on his face." Patient is unable to provide any history. Upon my assessment of him, the patient is a very active twitching of the face and he is looking to the right. He has incomprehensible sounds. Ativan 1 mg IV is administered. Workup was initiated in the ambulance call them once a medical bed becomes available, patient will be transferred and care assumed by that provider. Data Data Last Documented VS Vital Signs Date Time Temp Pulse Resp B/P (MAP) Pulse Ox O2 Delivery O2 Flow Rate FiO2 04/28/17 15:12 97.6 69 15 99/63 (75) 98 Room Air Orders Orders Lorazepam Inj (Ativan Inj) (04/28/17 15:15) Complete Blood Count With Diff (04/28/17 15:15) Alcohol (Ethanol) (04/28/17 15:15) Drug Screen, Random Urine (04/28/17 15:15) Electrocardiogram (04/28/17 ) Ct Brain W/O Iv Contrast(Rout) (04/28/17 ) Blood Glucose (04/28/17 15:15) Ecg Monitoring (04/28/17 15:15) Iv Access Insert/Monitor (04/28/17 15:15) Oximetry (04/28/17 15:15) Comprehensive Metabolic Panel (04/28/17 15:15) Sodium Chloride 0.9% Flush (Ns Flush) (04/28/17 15:15) Urinalysis - C+S If Indicated (04/28/17 15:15) Lorazepam Inj (Ativan Inj) (04/28/17 15:16) [facility] Medical Record Reviewed: Yes Supervised Visit with SAMMY: Yes Condition: Stable Simona Bonilla Apr 28, 2017 15:48
[2017-04-28 16:02] VITALS: BP 174/94; PULSE 69; RESP 19; O2SAT 96
[2017-04-28 16:03] VITALS: O2SAT 96
[2017-04-28 16:31] LABS: AUTOMATED NEUTROPHIL # 2.8 TH/MM3 (1.8-7.7); BASOPHIL % 0.9 % (0.0-2.0); EOSINOPHIL # 0.1 TH/MM3 (0-0.4); EOSINOPHIL % 2.5 % (0.0-4.0); HEMATOCRIT 39.2 % (39.0-51.0); HEMO FLAGS DIFF FINAL; LYMPH % 18.9 % (9.0-44.0); LYMPHOCYTE # 0.8 TH/MM3 (1.0-4.8); MEAN CELL VOLUME 85.9 FL (80.0-100.0); MEAN CORPUSCULAR HEMOGLOBIN 28.8 PG (27.0-34.0); MEAN CORPUSCULAR HGB CONC 33.5 % (32.0-36.0); MONO % 8.3 % (0.0-8.0); NEUT % 69.4 % (16.0-70.0); PLATELET COUNT 223 TH/MM3 (150-450); RED BLOOD COUNT 4.57 MIL/MM3 (4.50-5.90); RED CELL DISTRIBUTION WIDTH 15.8 % (11.6-17.2); WHITE BLOOD COUNT 4.1 TH/MM3 (4.0-11.0)
[2017-04-28 16:53] LABS: ALT (GPT) 37 U/L (12-78); ANION GAP 7 MEQ/L (5-15); AST (GOT) 14 U/L (15-37); BICARBONATE 28.4 MEQ/L (21.0-32.0); BLOOD UREA NITROGEN 11 MG/DL (7-18); CHLORIDE 104 MEQ/L (98-107); GLOMERULAR FILTRATION RATE 125 ML/MIN (>89); POTASSIUM 4.5 MEQ/L (3.5-5.1); SODIUM (NA) 139 MEQ/L (136-145)
[2017-04-28 16:55] LABS: ALKALINE PHOSPHATASE 93 U/L (45-117); TOTAL BILIRUBIN ADULT 0.3 MG/DL (0.2-1.0)
--- NOTE | 2017-04-28 16:56 | RADRPT ---
EXAM DATE/TIME: 04/28/2017 16:33 [place] COMPARISON: No previous studies available for comparison. INDICATIONS : Altered mental status with confusion. RADIATION DOSE: 37.85 CTDIvol (mGy) MEDICAL HISTORY : Seizures. Hypertension. Cerebrovascular disease.Anemia. SURGICAL HISTORY : None. ENCOUNTER: Initial ACUITY: 1 day PAIN SCALE: Non-responsive LOCATION: Bilateral cranial TECHNIQUE: Multiple contiguous axial images were obtained of the head. Using automated exposure control and adj ustment of the mA and/or kV according to patient size, radiation dose was kept as low as reasonably a chievable to obtain optimal diagnostic quality images. DICOM format image data is available electro nically for review and comparison. FINDINGS: CEREBRUM: There is generalized atrophy. Ventricles are normal in size given the degree of atri present. There i s periventricular white matter low-attenuation along with a well-defined 9 mm low density lesion the right basal ganglia. Severe calcification is present within the intracranial internal carotid arterie s. No evidence of midline shift, mass lesion, hemorrhage or acute infarction. No extra-axial fluid collections are seen. POSTERIOR FOSSA: The cerebellum and brainstem demonstrate no acute finding. The 4th ventricle is midline. The cerebe llopontine angle is unremarkable. EXTRACRANIAL: Visualized sinuses are clear. SKULL: The calvaria is intact. No evidence of skull fracture. CONCLUSION: 1. No acute intracranial abnormality is identified. 2. Chronic changes include generalized atrophy and chronic periventricular white matter changes along with an old lacuna in the right basal ganglia. Kevin Kerr MD on April 28, 2017 at 16:52 Board Certified Radiologist. This report was verified electronically.
[2017-04-28 16:59] LABS: ALCOHOL LESS THAN 3 MG/DL (0-5)
[2017-04-28] MEDS ORDERED: DEXTROSE 5% IN WATE 1000ML INJ 1,000 ML IV ONE (17:30)
--- NOTE | 2017-04-28 18:18 | PD ---
HPI Chief Complaint: Neuro Symptoms/ Deficits Time Seen by Provider: 16:38 Travel History International Travel<30 days: No Contact w/Intl Traveler<30days: No Traveled to known affect area: No History of Present Illness HPI 76-year-old male came to the emergency room with history of acting confused today followed by twitching movements and left-sided weakness. His has been with him the whole day today and she is giving the entire history. As per her patient woke up at 7:30 this morning. He brushed his teeth and got dressed. He said down any his breakfast. After eating the breakfast he yelled at her and told her that they needed to pay the credit card bill off the cruise which as per the happened 7 years ago. She says that patient one month ago had a stroke and since then he has been having moments of confusion in relation to time. So she tried to calm him down and did not think anything much of this event. 10:00 is physical therapist came and recommended that he should get a psychiatric consult because of these kind of episodes of agitation. After hearing this patient got even more agitated. He went down and sat on the couch and at 11:00 the occupational therapist came and the noticed that patient was just staring blankly into the space. The occupational therapist made him stand up and start doing the exercises which was holding a bar and noticed that his left arm was extremely weak. At this point. They got concerned and called the fire department. They came and evaluated him as well at which point he decided to bring him to the emergency room. When I went to see him he was twitching on the left side of his face and left arm. His said that this is completely new for him. He does have history of seizures but his seizures are usually generalized tonic-clonic. He is on Keppra and has been getting his Keppra like he supposed to. Vital signs are otherwise stable. Patient was in the back wall for almost 3 hours. Initially he was seen by the nurse practitioner and she gave him 1 mg of IV Ativan for the twitching. [facility] Past Medical History Narrative Medical list of his past medical, surgical, social and family history was reviewed from the nursing note. Anemia: Yes Arthritis: No Asthma: No Autoimmune Disease: No Blood Disorders: No Anxiety: Yes Depression: Yes Heart Rhythm Problems: No Cancer: No Cardiovascular Problems: Yes High Cholesterol: Yes Chest Pain: No Congestive Heart Failure: No COPD: No Cerebrovascular Accident: Yes Diabetes: No Diminished Hearing: No Diverticulitis: Yes Endocrine: No Gastrointestinal Disorders: Yes (GI bleeds, diverticulitis, Brett's esophagus) GERD: Yes Genitourinary: No Headaches: No Hiatal Hernia: Yes Heparin Induced Thrombocytopen: No Hypertension: Yes Immune Disorder: No Musculoskeletal: No Neurologic: Yes (seizures, cva (lower left leg weankess)) Psychiatric: Yes Reproductive: No Respiratory: No Migraines: No Seizures: Yes (2017) Sickle Cell Disease: No Sleep Apnea: No Thyroid Disease: No Ulcer: No Past Surgical History Abdominal Surgery: Yes (hernia repair, cauterized AVM) AICD: No Arteriovenous Shunt: No Cardiac Surgery: No Ear Surgery: No Endocrine Surgery: No Eye Surgery: No Genitourinary Surgery: No Gynecologic Surgery: No Insulin Pump: No Joint Replacement: No Oral Surgery: No Pacemaker: No Thoracic Surgery: No Other Surgery: Yes Social History Alcohol Use: Yes (2 drinks daily) Tobacco Use: No Substance Use: No Allergies-Medications (Allergen,Severity, Reaction): Coded Allergies: No Known Allergies (Verified , 04/07/16) Comments No known drug allergies. Reported Meds & Prescriptions Reported Meds & Active Scripts Active Senna Plus 8.6-50 mg (Sennosides-Docusate Sodium) 8.6 Mg-50 Mg Tab 1 Tab PO BID 30 Days Abilify (Aripiprazole) 2 Mg Tab 2 Mg PO HS 30 Days Phenytoin 100 Mg/4 Ml Oral.susp 150 Mg PO Q8H 30 Days Eq Acetaminophen (Acetaminophen) 325 Mg Tab 650 Mg PO Q6HR PRN 30 Days Flomax (Tamsulosin HCl) 0.4 Mg Cap 0.4 Mg PO DAILY 30 Days Carbamazepine 100 Mg Chew 300 Mg PO BID 30 Days Norvasc (Amlodipine Besylate) 5 Mg Tab 2.5 Mg PO DAILY 30 Days Keppra (Levetiracetam) 1,000 Mg Tab 1,500 Mg PO BID 30 Days Ferrous Sulfate ER (Ferrous Sulfate) 140 Mg (45 Mg Iron) Tab 140 Mg PO DAILY 30 Days Nephro-Cecilia (B-Complex W/ C & Folic Acid) 1 Tab 1 Tab PO DAILY 30 Days Aspirin 81 Mg Chew 81 Mg CHEW DAILY 30 Days Protonix (Pantoprazole Sodium) 40 Mg Tab 40 Mg PO DAILY 30 Days Metamucil Original Texture (Psyllium Hydrophilic Mucilloid) 3.4 Gram/7 Gram Pow 1 Scoop PO TID PRN 30 Days 1 rounded TEASPOON in 8 oz of liquid at the first sign of irregularity. Transport Chair Ultra Lig (Device) 1 Mis Mis Ea .ROUTE DIRECTED [Shower Chair] Each Commode 3-in-1 (Device) 1 Mis Mis Ea .ROUTE DIRECTED Narrative Medication List of his home medications reviewed from the nursing note. Review of Systems Except as stated in HPI: all other systems reviewed are Neg Neurologic: Positive: Focal Abnormalities, Seizures Physical Exam Narrative GENERAL: Altered mental status, twitching/tremors, answering questions but with a heavy slurred speech SKIN: Focused skin assessment warm/dry. HEAD: Atraumatic. Normocephalic. EYES: Pupils equal and round. No scleral icterus. No injection or drainage. ENT: No nasal bleeding or discharge. Mucous membranes pink and moist. NECK: Trachea midline. No JVD. CARDIOVASCULAR: Regular rate and rhythm. No murmur appreciated. RESPIRATORY: No accessory muscle use. Clear to auscultation. Breath sounds equal bilaterally. GASTROINTESTINAL: Abdomen soft, non-tender, nondistended. Hepatic and splenic margins not palpable. MUSCULOSKELETAL: No obvious deformities. No clubbing. No cyanosis. No edema. NEUROLOGICAL: GCS of 14. No obvious cranial nerve deficits. Motor strength of the left upper extremity is 3 out of 5 and left lower extremity is 2 out of 5. Right upper and lower extremity is 5 out of 5. Slurred speech. Left-sided facial twitching and upper extremity twitching and contracture PSYCHIATRIC: Appropriate mood and affect; insight and judgment normal. Data Data Last Documented VS Vital Signs Date Time Temp Pulse Resp B/P (MAP) Pulse Ox O2 Delivery O2 Flow Rate FiO2 04/28/17 16:03 96 Room Air 04/28/17 16:02 69 19 04/28/17 15:12 97.6 Orders Orders Lorazepam Inj (Ativan Inj) (04/28/17 15:15) Complete Blood Count With Diff (04/28/17 15:15) Alcohol (Ethanol) (04/28/17 15:15) Drug Screen, Random Urine (04/28/17 15:15) Electrocardiogram (04/28/17 ) Ct Brain W/O Iv Contrast(Rout) (04/28/17 ) Blood Glucose (04/28/17 15:15) Ecg Monitoring (04/28/17 15:15) Iv Access Insert/Monitor (04/28/17 15:15) Oximetry (04/28/17 15:15) Comprehensive Metabolic Panel (04/28/17 15:15) Sodium Chloride 0.9% Flush (Ns Flush) (04/28/17 15:15) Urinalysis - C+S If Indicated (04/28/17 15:15) Lorazepam Inj (Ativan Inj) (04/28/17 15:16) Lorazepam Inj (Ativan Inj) (04/28/17 17:30) Dextrose 5% In Wate 1000ml Inj (D5w 1000 (04/28/17 17:30) Mri Brain W&W/O Contrast (04/28/17 ) Mra Brain W/O Contrast (Cow) (04/28/17 ) Labs Laboratory Tests Test 04/28/17 16:00 White Blood Count 4.1 TH/MM3 Red Blood Count 4.57 MIL/MM3 Hemoglobin 13.1 GM/DL Hematocrit 39.2 % Mean Corpuscular Volume 85.9 FL Mean Corpuscular Hemoglobin 28.8 PG Mean Corpuscular Hemoglobin Concent 33.5 % Red Cell Distribution Width 15.8 % Platelet Count 223 TH/MM3 Mean Platelet Volume 7.9 FL Neutrophils (%) (Auto) 69.4 % Lymphocytes (%) (Auto) 18.9 % Monocytes (%) (Auto) 8.3 % Eosinophils (%) (Auto) 2.5 % Basophils (%) (Auto) 0.9 % Neutrophils # (Auto) 2.8 TH/MM3 Lymphocytes # (Auto) 0.8 TH/MM3 Monocytes # (Auto) 0.3 TH/MM3 Eosinophils # (Auto) 0.1 TH/MM3 Basophils # (Auto) 0.0 TH/MM3 CBC Comment DIFF FINAL Differential Comment Blood Urea Nitrogen 11 MG/DL Creatinine 0.62 MG/DL Random Glucose 85 MG/DL Total Protein 6.9 GM/DL Albumin 3.7 GM/DL Calcium Level 8.5 MG/DL Alkaline Phosphatase 93 U/L Aspartate Amino Transf (AST/SGOT) 14 U/L Alanine Aminotransferase (ALT/SGPT) 37 U/L Total Bilirubin 0.3 MG/DL Sodium Level 139 MEQ/L Potassium Level 4.5 MEQ/L Chloride Level 104 MEQ/L Carbon Dioxide Level 28.4 MEQ/L Anion Gap 7 MEQ/L Estimat Glomerular Filtration Rate 125 ML/MIN Ethyl Alcohol Level LESS THAN 3 MG/DL MDM Medical Decision Making Medical Screen Exam Complete: Yes Emergency Medical Condition: Yes Medical Record Reviewed: Yes Interpretation(s) Twelve-lead EKG was reviewed by me. Normal sinus rhythm, left axis deviation, nonspecific ST-T wave changes. Heart rate of 77 bpm. Differential Diagnosis CVA, Evangelist's paralysis, focal seizure Narrative Course 6:[address] was negative for any acute bleed. It does show a lacunar infarct. Blood test results are within normal limit. I have given him 2 more milligrams of Ativan. In my opinion patient is having focal seizures with possible Evangelist's paralysis on the left side. Given the seizure and time window he is not a TPA candidate at this point. I've ordered an MRI and MRA urgently for him. I explained all this to the as well as his 2 children extensively. I answered all the questions to the best of my ability. Awaiting for the MRI to be done and resulted. Patient will require admission. Procedures EKG Prior to Arrival: No Diagnosis Primary Impression: Focal seizure Additional Impressions: Seizure disorder Left hemiplegia Admitting Information Admitting Physician Requests: Admit Condition: Stable Adria Velarde MD Apr 28, 2017 18:18
[2017-04-28] MEDS ORDERED: SODIUM CHLORIDE 0.9% FLUSH 10 ML FLUSH IV FLUSH PRN (20:15)
[2017-04-28] MEDS ORDERED: NALOXONE HCL 0.4 MG/ML AMP IV PUSH PRN (20:15)
--- NOTE | 2017-04-28 20:15 | RADRPT ---
EXAM DATE/TIME: 04/28/2017 19:00 [facility] COMPARISON: CT BRAIN W/O CONTRAST, April 28, 2017, 16:33. INDICATIONS : Seizures. Stroke. MEDICAL HISTORY : Seizures. Stroke SURGICAL HISTORY : Tonsillectomy. Inguinal hernia repair. ENCOUNTER: Initial ACUITY: 1 day PAIN SCORE: 0/10 LOCATION: head TECHNIQUE: Multiplanar, multisequence MRI of the brain was performed without contrast. FINDINGS: CEREBRUM: The ventricles are normal for age. No evidence of midline shift, mass lesion, hemorrhage or acute in farction. No extraaxial fluid collections are seen. The pituitary gland and suprasellar cistern are normal in configuration. Area of right basal ganglion of remote lacunar infarction. WHITE MATTER: Periventricular ischemic demyelinization POSTERIOR FOSSA: The cerebellum and brainstem are intact. The 4th ventricle is midline. The cerebellopontine angle is unremarkable. The cerebellar tonsils are normal in position. DIFFUSION IMAGING: No focal areas of restricted diffusion are seen. No evidence of acute infarction. EXTRACRANIAL: The visualized portions of the orbits and paranasal sinuses are unremarkable. CONCLUSION: No acute intracranial abnormality. Periventricular microvascular ischemic demyelinization. Remot e lacunar infarct right basal ganglia. Mohit Linda MD on April 28, 2017 at 20:12 Board Certified Radiologist. This report was verified electronically.
--- NOTE | 2017-04-28 20:19 | RADRPT ---
EXAM DATE/TIME: 04/28/2017 19:00 [facility] COMPARISON: No previous studies available for comparison. INDICATIONS : Stroke. MEDICAL HISTORY : Stroke Seizures. SURGICAL HISTORY : Tonsillectomy. Inguinal hernia repair. ENCOUNTER: Initial ACUITY: 1 day PAIN SCORE: 0/10 LOCATION: head Please note a normal MRA of the brain does not entirely exclude the possibility of a small aneurysm, nor the possibility of distal intracranial vessel disease. TECHNIQUE: 3D time of flight MRA was performed. Source images, multiplanar STS MIP, and 3D volume MIP reconstru ctions were reviewed. FINDINGS: There is excellent visualization of the major intracranial arteries out to the second-order branch ve ssels. There is no evidence for aneurysm, vessel truncation or stenosis, and no evidence for vascula r malformation. There are nonstenotic atherosclerotic changes of the initial segment of the bilateral posterior cerebral arteries . Right A1 segment is hypoplastic CONCLUSION: Atherosclerotic changes of the distal segment of bilateral posterior cerebral arteries. Otherwise neg ative with no evidence of thrombus, significant stenosis of the anterior circuit or aneurysm. Mohit Linda MD on April 28, 2017 at 20:14 Board Certified Radiologist. This report was verified electronically.
--- NOTE | 2017-04-28 20:51 | HHI.HP ---
HPI Service [facility] . Primary Care Physician Rohit Reis MD . Admission Diagnosis focal seizure, left hemiplegia . Diagnoses: (1) Focal seizure (2) Left hemiplegia Chief Complaint: Confusion, focal tremor Travel History International Travel<30 Days: No Contact w/Intl Traveler <30 Da: No Traveled to Known Affected Are: No History of Present Illness Written by Brooke Mcdermott, acting as scribe for Dr. Landry on 04/28/17 at 20:51. The patient's OT was at the house evaluating the patient. He was in a sitting position at the time. The patient's provides the history: Suddenly, his eyes were staring blankly; he was given a pen and his left hand was unable to grasp a pen. His states that he was unresponsive to commands/questions. Eyes wouldn't follow to left field of gaze. Symptoms began a little after 12 noon on 04/28/17. In ED, he was noted to be twitching and having spasms left hand and face. All symptoms are new. The patient has a history of seizures. Home AED: Carbamazepine 300 mg BID, Dilantin 1500 mg BID, and Keppra 1500 mg BID - no missed doses, no nausea or vomiting. He has been having some confusion. He was in [place] for two weeks - admitted 03/15/17 to [facility] and was discharged to [place] and to home on 04/10/17. He has some mild baseline dementia. Denies fever, diarrhea, black or red stools, dysuria. Frequent urination at night. The patient reports that he has been having trouble speaking because his dentures are loose. Neurologist: Dr. 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 Reported Medications Reported Meds & Active Scripts Active Senna Plus 8.6-50 mg (Sennosides-Docusate Sodium) 8.6 Mg-50 Mg Tab 1 Tab PO BID 30 Days Phenytoin 100 Mg/4 Ml Oral.susp 150 Mg PO Q8H 30 Days Eq Acetaminophen (Acetaminophen) 325 Mg Tab 650 Mg PO Q6HR PRN 30 Days Carbamazepine 100 Mg Chew 300 Mg PO BID 30 Days Keppra (Levetiracetam) 1,000 Mg Tab 1,500 Mg PO BID 30 Days Ferrous Sulfate ER (Ferrous Sulfate) 140 Mg (45 Mg Iron) Tab 140 Mg PO DAILY 30 Days Nephro-Cecilia (B-Complex W/ C & Folic Acid) 1 Tab 1 Tab PO DAILY 30 Days Aspirin 81 Mg Chew 81 Mg CHEW DAILY 30 Days Protonix (Pantoprazole Sodium) 40 Mg Tab 40 Mg PO DAILY 30 Days Metamucil Original Texture (Psyllium Hydrophilic Mucilloid) 3.4 Gram/7 Gram Pow 1 Scoop PO TID PRN 30 Days 1 rounded TEASPOON in 8 oz of liquid at the first sign of irregularity. Transport Chair Ultra Lig (Device) 1 Mis Mis Ea .ROUTE DIRECTED [Shower Chair] Each Commode 3-in-1 (Device) 1 Mis Mis Ea .ROUTE DIRECTED . Allergies: Coded Allergies: No Known Allergies (Verified , 04/07/16) Active Ordered Medications Current Medications Lorazepam (Ativan Inj) 1 mg ONCE ONCE IV PUSH Last administered on 04/28/17 15:25; Start 04/28/17 at 15:15; Stop 04/28/17 at 15:16; Status DC Sodium Chloride (NS Flush) 2 ml UNSCH PRN IVF FLUSH AFTER USING IV ACCESS Last administered on 04/28/17 18:13; Start 04/28/17 at 15:15 Lorazepam (Ativan Inj) 2 mg STK-MED ONCE .ROUTE ; Start 04/28/17 at 15:16; Stop 04/28/17 at 15:17; Status DC Lorazepam (Ativan Inj) 2 mg ONCE ONCE IV PUSH Last administered on 04/28/17 18:14; Start 04/28/17 at 17:30; Stop 04/28/17 at 17:31; Status DC Dextrose 1,000 ml @ 999 mls/hr BOLUS ONCE IV Last administered on 10/18/17at 18:13; Start 04/28/17 at 17:30; Stop 04/28/17 at 18:30; Status DC Sodium Chloride 1,000 ml @ 70 mls/hr [id number] IV ; Start 04/28/17 at 20:00 Lorazepam (Ativan Inj) 1 mg Q15M PRN IV PUSH SEIZURE; Start 04/28/17 at 18:45 Sodium Chloride (NS Flush) 2 ml UNSCH PRN IV FLUSH FLUSH AFTER USING IV ACCESS ; Start 04/28/17 at 20:15; Status UNV Sodium Chloride (NS Flush) 2 ml BID IV FLUSH ; Start 04/28/17 at 21:00; Status UNV Naloxone HCl (Narcan Inj) 0.4 mg UNSCH PRN IV PUSH SEE LABEL COMMENTS; Start 04/28/17 at 20:15; Status UNV . Family History Cancer in his father's family - father with lung cancer CVA on mother's side of the family . Social History Tobacco: smoked remotely - quit 30 years ago Alcohol: 1-2 glasses of wine. . Physical Exam Vital Signs Vital Signs Date Time Temp Pulse Resp B/P (MAP) Pulse Ox O2 Delivery O2 Flow Rate FiO2 04/28/17 20:00 04/28/17 16:03 96 Room Air 04/28/17 16:02 69 19 174/94 (120) 96 Room Air 04/28/17 15:12 97.6 69 15 99/63 (75) 98 Room Air Physical Exam GENERAL: This is an elderly male patient, in no apparent distress. SKIN: No rashes, ecchymoses or lesions. Cool and dry. HEAD: Atraumatic. Normocephalic. EYES: No scleral icterus. No injection or drainage. ENT: Nose without bleeding, purulent drainage. Airway patent. NECK: Trachea midline. No JVD. CARDIOVASCULAR: Regular rate and rhythm without murmurs, gallops, or rubs. RESPIRATORY: Clear to auscultation. Breath sounds equal bilaterally. No wheezes , rales, or rhonchi. GASTROINTESTINAL: Abdomen soft, non-tender, nondistended. No guarding. MUSCULOSKELETAL: Extremities without clubbing, cyanosis, or edema. No calf tenderness. NEUROLOGICAL: Awake and alert; left facial twitching noted; left eye ptosis; some dysarthric speech due to loose fitting dentures; left hand occasional twitching noted; grossly moving all extremities. . Laboratory Laboratory Tests Test 04/28/17 16:00 White Blood Count 4.1 Red Blood Count 4.57 Hemoglobin 13.1 Hematocrit 39.2 Mean Corpuscular Volume 85.9 Mean Corpuscular Hemoglobin 28.8 Mean Corpuscular Hemoglobin Concent 33.5 Red Cell Distribution Width 15.8 Platelet Count 223 Mean Platelet Volume 7.9 Neutrophils (%) (Auto) 69.4 Lymphocytes (%) (Auto) 18.9 Monocytes (%) (Auto) 8.3 Eosinophils (%) (Auto) 2.5 Basophils (%) (Auto) 0.9 Neutrophils # (Auto) 2.8 Lymphocytes # (Auto) 0.8 Monocytes # (Auto) 0.3 Eosinophils # (Auto) 0.1 Basophils # (Auto) 0.0 CBC Comment DIFF FINAL Differential Comment Blood Urea Nitrogen 11 Creatinine 0.62 Random Glucose 85 Total Protein 6.9 Albumin 3.7 Calcium Level 8.5 Alkaline Phosphatase 93 Aspartate Amino Transf (AST/SGOT) 14 Alanine Aminotransferase (ALT/SGPT) 37 Total Bilirubin 0.3 Sodium Level 139 Potassium Level 4.5 Chloride Level 104 Carbon Dioxide Level 28.4 Anion Gap 7 Estimat Glomerular Filtration Rate 125 Ethyl Alcohol Level LESS THAN 3 Result Diagram: 04/28/17 1600 04/28/17 1600 Imaging Last Impressions Head Magnetic Resonance Angiography 04/28/17 0000 Signed Impressions: Service Date/Time: Friday, April 28, 2017 19:00 - CONCLUSION: Atherosclerotic changes of the distal segment of bilateral posterior cerebral arteries. Otherwise negative with no evidence of thrombus, significant stenosis of the anterior circuit or aneurysm. Moiht Linda MD Head CT 04/28/17 0000 Signed Impressions: Service Date/Time: Friday, April 28, 2017 16:33 - CONCLUSION: 1. No acute intracranial abnormality is identified. 2. Chronic changes include generalized atrophy and chronic periventricular white matter changes along with an old lacuna in the right basal ganglia. Kevin Kerr MD Brain MRI 04/28/17 0000 Signed Impressions: Service Date/Time: Friday, April 28, 2017 19:00 - CONCLUSION: No acute intracranial abnormality. Periventricular microvascular ischemic demyelinization. Remote lacunar infarct right basal ganglia. Mohit Linda MD . Caprini VTE Risk Assessment Caprini VTE Risk Assessment: Mod/High Risk (score >= 2) Caprini Risk Assessment Model Point Value = 1 Point Value = 2 Point Value = 3 Point Value = 5 Age 41-60 Minor surgery BMI > 25 kg/m2 Swollen legs Varicose veins or History of unexplained or recurrent spontaneous Oral contraceptives or hormone replacement Sepsis (< 1 month) Serious lung disease, including pneumonia (< 1 month) Abnormal pulmonary function Acute myocardial infarction Congestive heart failure (< 1 month) History of inflammatory bowel disease Medical patient at bed rest Age 61-74 Arthroscopic surgery Major open surgery (> 45 min) Laparoscopic surgery (> 45 min) Malignancy Confined to bed (> 72 hours) Immobilizing plaster cast Central venous access Age >= 75 History of VTE Family history of VTE Factor V Leiden Prothrombin [id number] Lupus anticoagulant Anticardiolipin antibodies Elevated serum homocysteine Heparin-induced thrombocytopenia Other congenital or acquired thrombophilia Stroke (< 1 month) Elective arthroplasty Hip, pelvis, or leg fracture Acute spinal cord injury (< 1 month) Prophylaxis Regimen Total Risk Factor Score Risk Level Prophylaxis Regimen 0-1 Low Early ambulation 2 Moderate Order ONE of the following: *Sequential Compression Device (SCD) *Heparin 5000 units SQ BID 3-4 Higher Order ONE of the following medications: *Heparin 5000 units SQ TID *Enoxaparin/Lovenox 40 mg SQ daily (WT < 150 kg, CrCl > 30 mL/min) *Enoxaparin/Lovenox 30 mg SQ daily (WT < 150 kg, CrCl > 10-29 mL/min) *Enoxaparin/Lovenox 30 mg SQ BID (WT < 150 kg, CrCl > 30 mL/min) AND/OR *Sequential Compression Device (SCD) 5 or more Highest Order ONE of the following medications: *Heparin 5000 units SQ TID (Preferred with Epidurals) *Enoxaparin/Lovenox 40 mg SQ daily (WT < 150 kg, CrCl > 30 mL/min) *Enoxaparin/Lovenox 30 mg SQ daily (WT < 150 kg, CrCl > 10-29 mL/min) *Enoxaparin/Lovenox 30 mg SQ BID (WT < 150 kg, CrCl > 30 mL/min) AND *Sequential Compression Device (SCD) Assessment and Plan Problem List: (1) Partial seizure ICD Code: R56.9 - Unspecified convulsions Status: Acute (2) Seizure disorder ICD Code: G40.909 - Epilepsy, unspecified, not intractable, without status epilepticus Status: Chronic Assessment and Plan 76 y/o male with a history of tonic-clonic seizures and CVA who presented to the ED with partial breakthrough seizures on 04/28/17: Partial seizures, breakthrough seizures Seizure disorder - Bedside swallow evaluation - NPO until then - consult Dr. Dumont, neurology - neuro checks q4h - seizure precautions - resume home seizure medications - consult physical therapy Confusion per patient's - check urinalysis with C&S if indicated to r/o UTI as possible cause - await culture results DVT prophylaxis - Lovenox 40 mg subq q24h (verbal order) This note was transcribed by scribe [Brooke Mcdermott]. I, Dr. Jenise Landry personally performed the history, physical exam, and medical decision making; and confirmed the accuracy of the information in the transcribed note. Authenticated by Dr. Jenise Landry on 04/28/17 at 20:51. Discussed Condition With ER physician, patient, and patient's . Brooke Mcdermott Apr 28, 2017 20:51 Jenise Landry MD Apr 30, 2017 01:12
[2017-04-28 20:57] VITALS: BP 170/85; PULSE 132; RESP 18; TEMP 97.6; O2SAT 97
[2017-04-28] MEDS: SODIUM CHLOR 0.9% 1000 ML INJ 1,000 ML IV SCH (21:21)
[2017-04-28] MEDS: SODIUM CHLORIDE 0.9% FLUSH 10 ML FLUSH IV FLUSH SCH (21:22)
[2017-04-28] MEDS: PHENYTOIN SUSP 100 MG/4 ML CUP PO SCH (21:23)
[2017-04-28] MEDS: levETIRAcetam 500 MG TAB PO SCH (21:46)
[2017-04-28] MEDS: ENOXAPARIN SODIUM 40 MG/0.4 ML SYRINGE SQ SCH (23:51)
[2017-04-29] VITALS (12 sets, daily range): BP systolic 142–188; BP diastolic 71–104; PULSE 55–78; RESP 16–24; TEMP 97.3–98.9; O2SAT 92–97
[2017-04-29 00:25] LABS: BACTERIA, URINE RARE /hpf; BLOOD, URINE NEG (NEG); COMMENT (UR) CULT NOT INDICATED; CULTURE IF INDICATED CULT NOT INDICATED; GLUCOSE,URINE NEG (NEG); KETONE, URINE 10 mg/dL (NEG); NITRITE,URINE NEG (NEG); PH, URINE 6.5 (5.0-8.5); URINE COLOR LIGHT-YELLOW (YELLW/STRAW)
[2017-04-29] MEDS: PHENYTOIN SUSP 100 MG/4 ML CUP PO SCH ×2 (05:40→13:00)
[2017-04-29] MEDS ORDERED: FERROUS SULFATE 140 MG PO SCH (09:00)
[2017-04-29] MEDS: FERROUS SULFATE 300 MG /5ML UDC PO SCH (09:00)
[2017-04-29] MEDS: levETIRAcetam 500 MG TAB PO SCH (09:19)
[2017-04-29] MEDS: SODIUM CHLORIDE 0.9% FLUSH 10 ML FLUSH IV FLUSH SCH ×2 (09:19→21:31)
[2017-04-29] MEDS: ASPIRIN 81 MG CHEW TAB CHEW SCH (09:19)
[2017-04-29] MEDS: PANTOPRAZOLE SOD 40 MG DELAYED RELEASE TAB PO SCH (09:19)
[2017-04-29] MEDS: VITAMIN B CMPLX/VITC/FOLIC AC CAP PO SCH (09:19)
--- NOTE | 2017-04-29 09:33 | HHI.PR ---
Subjective Remarks Follow-up for tremors. Patient seen with at bedside. The patient had some discoordination yesterday on his right side as well as episodes of staring off. The patient's states that he was able to converse normally during this episode. He has continued to have some episodes of left facial tremoring overnight and currently. Patient has indicated couple recent medication changes , recently taken off of Abilify, Flonase, and sodium tablets since his recent discharge from rehabilitation. The patient has no acute complaints at this time. Denies any vision changes, headache, new weakness, numbness, tingling. Objective Vitals Vital Signs Date Time Temp Pulse Resp B/P (MAP) Pulse Ox O2 Delivery O2 Flow Rate FiO2 04/29/17 07:56 98.0 55 20 144/75 (98) 92 04/29/17 05:00 98.9 66 18 143/73 (96) 95 04/29/17 02:47 71 04/29/17 00:03 98.5 70 19 163/88 (113) 95 04/28/17 20:57 97.6 132 18 170/85 (113) 97 04/28/17 20:00 04/28/17 16:03 96 Room Air 04/28/17 16:02 69 19 174/94 (120) 96 Room Air 04/28/17 15:12 97.6 69 15 99/63 (75) 98 Room Air I/O 04/28/17 04/28/17 04/28/17 04/29/17 04/29/17 04/29/17 07:00 15:00 23:00 07:00 15:00 23:00 Intake Total 370 ml Output Total 100 ml Balance 370 ml -100 ml Intake Oral 30 ml IV Total 340 ml Output Urine Total 100 ml # Voids 4 Result Diagram: 04/28/17 1600 04/28/17 1600 Imaging Last Impressions Head Magnetic Resonance Angiography 04/28/17 0000 Signed Impressions: Service Date/Time: Friday, April 28, 2017 19:00 - CONCLUSION: Atherosclerotic changes of the distal segment of bilateral posterior cerebral arteries. Otherwise negative with no evidence of thrombus, significant stenosis of the anterior circuit or aneurysm. Mohit Linda MD Head CT 04/28/17 0000 Signed Impressions: Service Date/Time: Wednesday, April 28, 2017 16:33 - CONCLUSION: 1. No acute intracranial abnormality is identified. 2. Chronic changes include generalized atrophy and chronic periventricular white matter changes along with an old lacuna in the right basal ganglia. Kevin Kerr MD Brain MRI 04/28/17 0000 Signed Impressions: Service Date/Time: Friday, April 28, 2017 19:00 - CONCLUSION: No acute intracranial abnormality. Periventricular microvascular ischemic demyelinization. Remote lacunar infarct right basal ganglia. Mohit Linda MD Objective Remarks GENERAL: Well-developed well-nourished. In no acute distress. SKIN: Warm and dry. No lesions noted. HEENT: Normocephalic. Pupils equal and round. Mucous membranes pink and moist. CARDIOVASCULAR: Regular rate and rhythm. No murmur appreciated. RESPIRATORY: No accessory muscle use. Clear to auscultation. Breath sounds equal bilaterally. GASTROINTESTINAL: Abdomen soft, non-tender, nondistended. Bowel sounds x4. MUSCULOSKELETAL: No obvious deformities. No clubbing or cyanosis. No edema. NEUROLOGICAL: Awake and alert. Left facial twitching/tremors noted. Chronic left eye ptosis and facial droop, left upper and lower extremity weakness. Strength 5/5 on the right. Sensation grossly intact. Slightly dysarthric speech. PSYCHIATRIC: Appropriate mood and affect; insight and judgment fair to normal. A/P Problem List: (1) Partial seizure ICD Code: R56.9 - Unspecified convulsions Status: Acute (2) Seizure disorder ICD Code: G40.909 - Epilepsy, unspecified, not intractable, without status epilepticus Status: Chronic Assessment and Plan 76 y/o male with a history of tonic-clonic seizures and CVA who presented to the ED with partial breakthrough seizures on 04/28/17: History of seizure disorder: Suspect partial seizures, breakthrough seizures Reviewed: Head CT with no acute intracranial process, chronic changes. Brain MRI with no acute intracranial abnormality, microvascular ischemic demyelinization, remote lacunar infarct in the right basal ganglia. Brain MRA with atherosclerotic changes; no evidence of thrombus significant stenosis, or aneurysm. - consulted patient's neurologist, Dr. Dumont - neuro checks q4h - seizure precautions - Continue home Keppra, carbamazepine, phenytoin. Check Dilantin level. - Check EEG - consult physical therapy - Bedside swallow evaluation. ST consult - Ativan as seen for seizures - Upon review of EMR, it appears the patient was getting 0.5 mg of Klonopin at night but it appears is been discontinued and urine toxicology negative including benzos Confusion: per patient's , reportedly improved today. Patient's also reports some mild dementia. Probably secondary to seizures as above. Brain imaging as above. UA with no evidence of UTI. Afebrile with no leukocytosis. Possible medication effect is also in the differential. - Currently improved, monitor History of CVA: With residual left-sided weakness - Continue aspirin GERD: Chronic. - Continue PPI DVT prophylaxis - Lovenox 40 mg subq q24h Discharge Planning Follow-up neurology recommendations and results of above workup. Attending Statement The exam, history, and the medical decision-making described in the above note were completed with the assistance of the mid-level provider. I reviewed and agree with the findings presented. I attest that I had a [id number] encounter with the patient on the same day, and personally performed and documented my assessment and findings in the medical record. Patient lying in bed. Asking about his glasses. Discussed with EEG tach. Severe ongoing. Discussed with neurology, who recommends transfer to [facility]. Appreciate assistance. Chris Moreno Apr 29, 2017 09:33 Nikko Alvarado MD Apr 29, 2017 15:32
[2017-04-29] MEDS: SODIUM CHLOR 0.9% 1000 ML INJ 1,000 ML IV SCH (10:18)
[2017-04-29] MEDS: LORazepam 2 MG/ML VIAL IV PUSH PRN ×5 (10:58→21:32)
--- NOTE | 2017-04-29 12:02 | EKG ---
Date Performed: 04/28/2017 Time Performed: 17:39:09 PTAGE: 76 years EKG: Sinus rhythm WITH OCCASIONAL SUPRAVENTRICULAR PREMATURE COMPLEXES BORDERLINE ECG PREVIOUS TRACING : 05/10/2012 14.21 PACs new from the old tracing. DOCTOR: Anthony Painting Interpretating Date/Time 04/29/2017 12:02:20
--- NOTE | 2017-04-29 12:17 | MB ---
cc: EBONY SANDERS M.D. DATE OF CONSULTATION 04/29/2017 REASON FOR CONSULTATION Seizure. HISTORY OF PRESENT ILLNESS Mr. Lovell is a 76-year-old man who has a history of right hemisphere stroke with residual left-sided weakness as well as a secondary seizure disorder. He was in the hospital about a month ago for GI hemorrhage with secondary seizures. In the past he was on Tegretol and Keppra. Dilantin was added. He was doing well until yesterday when he developed some focal twitching on the left side with staring episodes. Over the night the twitching has become continuous. He had an EEG done today which showed continuous epileptiform discharges over the right hemisphere. He did receive Ativan 1 mg x3 with a reduction in the seizure activity. PAST MEDICAL HISTORY 1. Remarkable for previous right sided stroke with left-sided weakness, seizures. 2. Hypertension. 3. Diverticulosis. 4. Recent GI hemorrhage. 5. Depression. 6. Anemia. 7. Faria's esophagus. CURRENT MEDICATIONS 1. Aspirin 81 mg daily. 2. Protonix 40 mg daily. 3. Iron sulfate 140 mg daily. 4. Lovenox 40 mg subcu daily. 5. Tegretol 300 mg b.i.d. 6. Keppra 1500 mg b.i.d. 7. Dilantin 150 mg q.8 hours. 8. Ativan p.r.n. seizure. NEUROLOGIC EXAMINATION Blood pressure 168/104, pulse 78, respiratory rate is 20, temperature 98 degrees. Higher Cortical Function: He is lethargic after Ativan but is responsive, follows commands. Speech dysarthric. Cranial Nerves: Left upper motor neuron VII palsy. Motor Exam: He is weak on the left side compared with the right. He is about 3/5 left arm and left leg with 5/5 strength on the right. He does have continuous twitching left hand and left foot. His EEG does show continued epileptiform discharges over the right hemisphere although much improved before the Ativan. IMAGING STUDIES MRI scan of the brain is reviewed. No acute changes identified. There is chronic ischemic change identified. Remote lacunar stroke is identified in the right basal ganglia. MRA of the brain - Atherosclerosis, no significant thrombus is identified. There is no large vessel occlusion, no aneurysm. CT of the brain - Chronic changes. LABORATORY DATA The white count is 4100, hemoglobin 13, hematocrit 39%, platelets 223,000. Sodium is 139, potassium 4.5, chloride 104, CO2 28.4, BUN is 11, creatinine 0.62, GFR is 125, glucose 85, AST 14, ALT 37. Phenytoin level and Tegretol level are pending. Tox screen otherwise negative. IMPRESSION The patient has focal status epilepticus. RECOMMENDATIONS 1. We will treat him with another dose of IV Ativan. 2. Continue the EEG monitoring. 3. We will check stat phenytoin and Tegretol levels. If subtherapeutic we will increase doses of these medications. Consider alternative medication as well such as Vimpat if the levels are therapeutic. MD WHITNEY Valenzuela/JED /11:43 AM /11:56 AM
[2017-04-29] MEDS ORDERED: FOSPHENYTOIN INJ 200 MGPE in SODIUM CHLORIDE 0.9% INJ 50 ML IV ONE (13:00)
[2017-04-29] MEDS: levETIRAcetam 1000 MG INJ 100 ML IV SCH ×2 (15:45→22:00)
[2017-04-29] MEDS ORDERED: FOSPHENYTOIN SODIUM 500 MG PE/10 ML VIAL IV ONE (16:00)
--- NOTE | 2017-04-29 17:13 | MG ---
cc: FORREST ZAIDI MD Lab No: Date: 04/29/2017 Age: Sex: M Race: DATE OF 1940 REFERRING PHYSICIAN PA, long MEDICAL HISTORY Hypertension, seizure, alcohol dependence, depression, anxiety, anemia, episodes of staring blankly into space, agitated. MEDICATIONS 1. Aspirin. 2. Tegretol 3. Keppra 4. Dilantin. DESCRIPTION At the beginning of the EEG there were sharp activities and spikes emanating from the right hemisphere with mild background slowing. During the recording there was a brief episode of electrographic seizures with propagation of the right sided epileptogenicity to involve a generalized 5-6 Hz spike and wave activity that lasted 26 seconds starting, from EPOCH 17 to EPOCH 19 followed by mild generalized slowing but superimposed by intermittent sharp activity and periodic sharp waves mainly on the right hemisphere. During the recording there were periods of mild generalized slowing with brief episodes of epileptogenicity at the right hemisphere. INTERPRETATION This is an abnormal awake and drowsy EEG. There is evidence of right hemisphere focal epileptogenic activity with a brief episode of electrographic seizure. This indicated focal seizure activity discharges on the right hemisphere with secondary generalization. Clinical correlation is recommended. Forrest Zaidi MD [facility]/kimberley /3:56 PM /5:02 PM NGUYỄN
[2017-04-29] MEDS ORDERED: LORazepam 2 MG/ML VIAL IV PUSH ONE ×3 (18:00→19:45)
[2017-04-29] MEDS: LACOSAMIDE INJ 150 MG in SODIUM CHLORIDE 0.9% INJ 100 ML IV SCH (18:40)
[2017-04-29] MEDS ORDERED: LACOSAMIDE IV ONE (20:00)
[2017-04-29] MEDS ORDERED: SODIUM CHLORIDE 0.9% IV ONE (20:00)
[2017-04-29] MEDS: ENOXAPARIN SODIUM 40 MG/0.4 ML SYRINGE SQ SCH (21:32)
[2017-04-29] MEDS: FOSPHENYTOIN SODIUM 100 MG PE/2 ML VIAL IV SCH (21:32)
[2017-04-30] VITALS (19 sets, daily range): BP systolic 137–210; BP diastolic 66–103; PULSE 54–100; RESP 20–37; TEMP 97.8–99.5; O2SAT 94–100
[2017-04-30] MEDS: SODIUM CHLOR 0.9% 1000 ML INJ 1,000 ML IV SCH (00:36)
[2017-04-30] MEDS: LACOSAMIDE INJ 150 MG in SODIUM CHLORIDE 0.9% INJ 100 ML IV SCH ×3 (02:56→18:00)
[2017-04-30] MEDS: LORazepam 2 MG/ML VIAL IV PUSH PRN ×6 (03:24→21:28)
[2017-04-30] MEDS: FOSPHENYTOIN SODIUM 100 MG PE/2 ML VIAL IV SCH ×3 (06:03→22:59)
[2017-04-30] MEDS: levETIRAcetam 1000 MG INJ 100 ML IV SCH ×3 (06:03→22:59)
[2017-04-30] MEDS ORDERED: LORazepam 2 MG/ML VIAL IV ONE (08:30)
--- NOTE | 2017-04-30 08:40 | HHI.PR ---
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 Plan Since it is nonconvulsive, will avoid intubation and heavily sedative anticonvulsant such as pentobarbital or versed at this time. Add phenobarbital and monitor cardio- respiratory status closely in [facility]. Diagnosis/Plan: Subjective Subjective Comments No acute events reported EEG continues to have continuoue epileptiform activity over the right hemisphere with some small discharges over left. Nonconvulsive with no tonic clonic activity . He has received several doses of iv ativan with no change in EEG. Just received 2 mg iv ativan with no change in the epileptiform activity Active Medications Current Medications Medications (Trade) Dose Ordered Sig/Meli Route Start Time Stop Time Status Last Admin Sodium Chloride 1,000 ml @ 70 mls/hr [id number] IV 04/28/17 20:00 04/30/17 00:36 (Ativan Inj) 1 mg Q15M PRN IV PUSH 04/28/17 18:45 04/30/17 06:13 (NS Flush) 2 ml UNSCH PRN IV FLUSH 04/28/17 20:15 (NS Flush) 2 ml BID IV FLUSH 04/28/17 21:00 04/29/17 21:31 (Narcan Inj) 0.4 mg UNSCH PRN IV PUSH 04/28/17 20:15 (Aspirin Chew) 81 mg DAILY CHEW 04/29/17 09:00 04/29/17 09:19 (Protonix) 40 mg DAILY PO 04/29/17 09:00 04/29/17 09:19 (Nephrocaps) 1 cap DAILY PO 04/29/17 09:00 04/29/17 09:19 (Ferrous Sulfate Liq) 140 mg DAILY PO 04/29/17 09:00 (Lovenox Inj) 40 mg Q24H SQ 04/28/17 22:00 04/29/17 21:32 (Flu (Quadrivalent) Vaccine Inj) 0.5 ml ONCE ONCE IM 04/30/17 10:00 04/30/17 10:01 (TEGretol CHEW) 300 mg TID PO 04/29/17 18:00 Levetriacetam 100 ml @ 400 mls/hr Q8HR IV 04/29/17 15:45 04/30/17 06:03 (Cerebyx Inj) 200 mgpe Q8HR IV 04/29/17 22:00 04/30/17 06:03 Lacosamide 150 mg/ Sodium Chloride 115 ml @ 115 mls/hr Q8H IV 04/29/17 18:00 04/30/17 02:56 Allergies Allergies Coded Allergies No Known Allergies (Verified04/07/16) Review of Systems All other ROS: ROS reviewed as documented in chart Exam I&O / VS Vital Signs Date Time Temp Pulse Resp B/P (MAP) Pulse Ox O2 Delivery O2 Flow Rate FiO2 04/30/17 07:50 99 Nasal Cannula 2.00 04/30/17 06:00 60 04/30/17 04:00 58 04/30/17 04:00 98.3 58 20 137/72 (93) 96 04/30/17 00:00 61 04/30/17 00:00 98.3 61 21 155/78 (103) 100 04/29/17 22:00 59 04/29/17 20:38 97 Nasal Cannula 2.00 04/29/17 20:00 74 04/29/17 20:00 97.8 74 24 188/79 (115) 95 04/29/17 17:00 98.0 70 16 168/71 (103) 96 04/29/17 16:00 70 04/29/17 12:48 97.3 69 20 144/78 (100) 96 04/29/17 12:00 98.4 70 18 142/75 (97) 96 04/29/17 11:19 98.1 78 20 168/104 (125) 95 General: Alert and Oriented, No acute distress Eye: EOMI Respiratory: Lungs CTA, Non-labored respirations, BS equal Cardiology: Normal rate, Regular Rhythm Musculoskeletal: ROM, Tenderness, Swelling Neurologic: Alert, Normal sensory, CN II-XII intact, Normal DTR's Psychiatric: Cooperative, Appropriate mood & affect Exam Comments sedated, min responsive Cn intact MOTOR--no spontaneous limb movement. No tonic clonic or myoclonic activity. Objective Micro and Labs Laboratory Tests Test 04/29/17 12:18 04/29/17 18:02 04/30/17 07:07 Phenytoin (Dilantin) Level 7.1 18.8 18.9 Carbamazepine (Tegretol) Level 5.8 Arden Benz PhD Apr 30, 2017 08:40
[2017-04-30] MEDS: ASPIRIN 81 MG CHEW TAB CHEW SCH (09:00)
[2017-04-30] MEDS: PANTOPRAZOLE SOD 40 MG DELAYED RELEASE TAB PO SCH (09:00)
[2017-04-30] MEDS: FERROUS SULFATE 300 MG /5ML UDC PO SCH (09:00)
[2017-04-30] MEDS: VITAMIN B CMPLX/VITC/FOLIC AC CAP PO SCH (09:00)
[2017-04-30] MEDS: SODIUM CHLORIDE 0.9% FLUSH 10 ML FLUSH IV FLUSH SCH ×2 (09:00→19:53)
[2017-04-30] MEDS ORDERED: PHENOBARBITAL IV ONE ×4 (10:00→21:45)
[2017-04-30] MEDS ORDERED: INFLUENZA VIRUS VACCINE (QUADRIVALENT) 0.5 ML SYR IM ONE (10:00)
[2017-04-30] MEDS ORDERED: SODIUM CHLORIDE 0.9% IV ONE ×4 (10:00→21:45)
--- NOTE | 2017-04-30 12:55 | HHI.PR ---
Subjective Remarks seen with family at bedside ongoing continuous EEG monitoring drowsy- opened eyes and said yeah when vigourously awakened and ff some commands Objective Vitals Vital Signs Date Time Temp Pulse Resp B/P (MAP) Pulse Ox O2 Delivery O2 Flow Rate FiO2 04/30/17 07:50 99 Nasal Cannula 2.00 04/30/17 06:00 60 04/30/17 04:00 58 04/30/17 04:00 98.3 58 20 137/72 (93) 96 04/30/17 00:00 61 04/30/17 00:00 98.3 61 21 155/78 (103) 100 04/29/17 22:00 59 04/29/17 20:38 97 Nasal Cannula 2.00 04/29/17 20:00 74 04/29/17 20:00 97.8 74 24 188/79 (115) 95 04/29/17 17:00 98.0 70 16 168/71 (103) 96 04/29/17 16:00 70 I/O 04/29/17 04/29/17 04/29/17 04/30/17 04/30/17 04/30/17 07:00 15:00 23:00 07:00 15:00 23:00 Intake Total 370 ml 450 ml 1394 ml 215.7692 ml Output Total 100 ml 500 ml 1100 ml Balance 370 ml -100 ml -50 ml 294 ml 215.7692 ml Intake Oral 30 ml 0 ml IV Total 340 ml 450 ml 1394 ml 215.7692 ml Output Urine Total 100 ml 500 ml 1100 ml # Voids 4 # Bowel Movements 0 Result Diagram: 04/28/17 1600 04/28/17 1600 Imaging Last Impressions Head Magnetic Resonance Angiography 04/28/17 0000 Signed Impressions: Service Date/Time: Friday, April 28, 2017 19:00 - CONCLUSION: Atherosclerotic changes of the distal segment of bilateral posterior cerebral arteries. Otherwise negative with no evidence of thrombus, significant stenosis of the anterior circuit or aneurysm. Mohit Linda MD Head CT 04/28/17 0000 Signed Impressions: Service Date/Time: Friday, April 28, 2017 16:33 - CONCLUSION: 1. No acute intracranial abnormality is identified. 2. Chronic changes include generalized atrophy and chronic periventricular white matter changes along with an old lacuna in the right basal ganglia. Kevin Kerr MD Brain MRI 04/28/17 0000 Signed Impressions: Service Date/Time: Friday, April 28, 2017 19:00 - CONCLUSION: No acute intracranial abnormality. Periventricular microvascular ischemic demyelinization. Remote lacunar infarct right basal ganglia. Mohit Linda MD Objective Remarks drowsy, anicteric, pupils euqal + facial asymmetry no gag reflex no nuchal rigidity lungs clear sinus with occasional PACs lower extremities no edema left sided hemiparesis condom catheter in place A/P Problem List: (1) Partial seizure ICD Code: R56.9 - Unspecified convulsions Status: Acute (2) Seizure disorder ICD Code: G40.909 - Epilepsy, unspecified, not intractable, without status epilepticus Status: Chronic Assessment and Plan 76 y/o male with a history of tonic-clonic seizures and CVA who presented to the ED with partial breakthrough seizures on 04/28/17: Status epilepticus - continuous EEG monitoring Head CT with no acute intracranial process, chronic changes. Brain MRI with no acute intracranial abnormality, microvascular ischemic demyelinization, remote lacunar infarct in the right basal ganglia. Brain MRA with atherosclerotic changes; no evidence of thrombus significant stenosis, or aneurysm. - Dr. Benz ff - neuro checks q4h - seizure precautions - Continue home Keppra, carbamazepine, on IV Cerebryx. - EEG + for epileptiform activity- repeat EEG - daily physical therapy - ST consult - ff along with us - Ativan as seen for seizures - Upon review of EMR, it appears the patient was getting 0.5 mg of Klonopin at night but it appears is been discontinued and urine toxicology negative including benzos Confusion: continue to monitor MS- waxing - Patient's also reports some mild dementia. Probably secondary to seizures as above. Brain imaging as above. UA with no evidence of UTI. Afebrile with no leukocytosis. Possible medication effect is also in the differential. History of CVA: With residual left-sided weakness - Continue aspirin GERD: Chronic. - Continue PPI DVT prophylaxis - Lovenox 40 mg subq q24h if still failed swallowing - by am- consider tube feedings Jim Frausto MD Apr 30, 2017 12:55
--- NOTE | 2017-04-30 17:29 | HHI.PR ---
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 and has received four doses of phenobarbital 100 mg each ove 6 hours. He has tolerated the phenobarbital and the epileptiform discharges are showing some improvement with diminishes amplitude and diminished periodicity but still persist. Plan Since it is nonconvulsive, will avoid intubation and heavily sedative anticonvulsant such as pentobarbital or versed at this time. Add phenobarbital and monitor cardio- respiratory status closely in [facility] He has tolerated phenobarbital . will give additional 200 mg iv now over 30 min with close monitor as the EEG is showing some improvement. Diagnosis/Plan: Subjective Subjective Comments No acute events reported No tonic clonic activity or any clinical manifestations of sz. Active Medications Current Medications Medications (Trade) Dose Ordered Sig/Meli Route Start Time Stop Time Status Last Admin Sodium Chloride 1,000 ml @ 70 mls/hr [id number] IV 04/28/17 20:00 04/30/17 00:36 (Ativan Inj) 1 mg Q15M PRN IV PUSH 04/28/17 18:45 04/30/17 16:21 (NS Flush) 2 ml UNSCH PRN IV FLUSH 04/28/17 20:15 (NS Flush) 2 ml BID IV FLUSH 04/28/17 21:00 04/30/17 09:00 (Narcan Inj) 0.4 mg UNSCH PRN IV PUSH 04/28/17 20:15 (Aspirin Chew) 81 mg DAILY CHEW 04/29/17 09:00 04/29/17 09:19 (Protonix) 40 mg DAILY PO 04/29/17 09:00 04/29/17 09:19 (Nephrocaps) 1 cap DAILY PO 04/29/17 09:00 04/29/17 09:19 (Ferrous Sulfate Liq) 140 mg DAILY PO 04/29/17 09:00 (Lovenox Inj) 40 mg Q24H SQ 04/28/17 22:00 04/29/17 21:32 (TEGretol CHEW) 300 mg TID PO 04/29/17 18:00 Levetriacetam 100 ml @ 400 mls/hr Q8HR IV 04/29/17 15:45 04/30/17 13:59 (Cerebyx Inj) 200 mgpe Q8HR IV 04/29/17 22:00 04/30/17 14:00 Lacosamide 150 mg/ Sodium Chloride 115 ml @ 115 mls/hr Q8H IV 04/29/17 18:00 04/30/17 10:45 (Luminal Inj) 90 mg Q8H IV 05/01/17 00:00 Allergies Allergies Coded Allergies No Known Allergies (Verified04/07/16) Review of Systems All other ROS: ROS reviewed as documented in chart Exam I&O / VS 04/30/17 04/30/17 05/01/17 15:00 23:00 07:00 Intake Total 416.5384 ml Balance 416.5384 ml IV Total 416.5384 ml Vital Signs Date Time Temp Pulse Resp B/P (MAP) Pulse Ox O2 Delivery O2 Flow Rate FiO2 04/30/17 07:50 99 Nasal Cannula 2.00 04/30/17 06:00 60 04/30/17 04:00 58 04/30/17 04:00 98.3 58 20 137/72 (93) 96 04/30/17 00:00 61 04/30/17 00:00 98.3 61 21 155/78 (103) 100 04/29/17 22:00 59 04/29/17 20:38 97 Nasal Cannula 2.00 04/29/17 20:00 74 04/29/17 20:00 97.8 74 24 188/79 (115) 95 General: Alert and Oriented, No acute distress Eye: EOMI Respiratory: Lungs CTA, Non-labored respirations, BS equal Cardiology: Normal rate, Regular Rhythm Musculoskeletal: ROM, Tenderness, Swelling Neurologic: Alert, Normal sensory, CN II-XII intact, Normal DTR's Psychiatric: Cooperative, Appropriate mood & affect Exam Comments sedated, min responsive Cn intact MOTOR--no spontaneous limb movement. No tonic clonic or myoclonic activity. Objective Micro and Labs Laboratory Tests Test 04/29/17 18:02 04/30/17 07:07 Phenytoin (Dilantin) Level 18.8 18.9 Arden Benz PhD Apr 30, 2017 17:29
[2017-04-30] MEDS: hydrALAZINE HCL 20 MG/ML VIAL IV PUSH PRN (18:15)
[2017-04-30] MEDS: ENOXAPARIN SODIUM 40 MG/0.4 ML SYRINGE SQ SCH (22:59)
[2017-05-01] VITALS (12 sets, daily range): BP systolic 124–194; BP diastolic 65–101; PULSE 67–128; RESP 19–31; TEMP 98–99.6; O2SAT 92–100
[2017-05-01] MEDS: LACOSAMIDE INJ 150 MG in SODIUM CHLORIDE 0.9% INJ 100 ML IV SCH ×3 (02:52→17:24)
[2017-05-01] MEDS: LORazepam 2 MG/ML VIAL IV PUSH PRN ×5 (03:07→10:07)
[2017-05-01] MEDS: levETIRAcetam 1000 MG INJ 100 ML IV SCH ×3 (04:54→21:20)
[2017-05-01] MEDS: FOSPHENYTOIN SODIUM 100 MG PE/2 ML VIAL IV SCH ×3 (04:54→21:22)
[2017-05-01 04:55] LABS: ALT (GPT) 31 U/L (12-78); ANION GAP 8 MEQ/L (5-15); AST (GOT) 11 U/L (15-37); BICARBONATE 23.6 MEQ/L (21.0-32.0); BLOOD UREA NITROGEN 8 MG/DL (7-18); CHLORIDE 104 MEQ/L (98-107); GLOMERULAR FILTRATION RATE 147 ML/MIN (>89); POTASSIUM 3.8 MEQ/L (3.5-5.1); SODIUM (NA) 136 MEQ/L (136-145)
[2017-05-01 04:57] LABS: ALKALINE PHOSPHATASE 114 U/L (45-117); PHENOBARBITAL 15.7 MCG/ML (15.0-40.0); TOTAL BILIRUBIN ADULT 0.7 MG/DL (0.2-1.0)
[2017-05-01 04:58] LABS: CREATINE KINASE 32 U/L (39-308)
[2017-05-01] MEDS: hydrALAZINE HCL 20 MG/ML VIAL IV PUSH PRN ×3 (06:03→19:01)
[2017-05-01] MEDS: SODIUM CHLORIDE 0.9% FLUSH 10 ML FLUSH IV FLUSH SCH ×2 (08:18→21:26)
[2017-05-01] MEDS: FERROUS SULFATE 300 MG /5ML UDC PO SCH (08:21)
[2017-05-01] MEDS: ASPIRIN 81 MG CHEW TAB CHEW SCH (08:21)
[2017-05-01] MEDS: VITAMIN B CMPLX/VITC/FOLIC AC CAP PO SCH (08:22)
[2017-05-01] MEDS: PANTOPRAZOLE SOD 40 MG DELAYED RELEASE TAB PO SCH (08:22)
[2017-05-01] MEDS ORDERED: SODIUM CHLORIDE 0.9% IV ONE (09:00)
[2017-05-01] MEDS ORDERED: PHENOBARBITAL IV ONE (09:00)
[2017-05-01] MEDS: SODIUM CHLOR 0.9% 1000 ML INJ 1,000 ML IV SCH (09:03)
--- NOTE | 2017-05-01 09:24 | MG ---
cc: FORREST FREITAS MD Lab No: Date: 05/01/2017 Age: Sex: M Race: DATE OF [address] Benz MEDICAL HISTORY: Hypertension, diverticulosis, seizure, alcohol dependence Depression, anxiety, anemia, hypercholesteremia. HISTORY OF PRESENT ILLNESS: The patient presented with altered mental status, agitated, reported to be staring blankly. MEDICATIONS Celebrex Lipitor. Ferrous sulfate. Aspirin. Lovenox Given one mg Ativan at 6:13 a.m. 04/30/2017. INTERPRETATION: This is a follow up EEG. There is evidence of spike and wave discharges, less frequent occurring one per second mainly at the right hemispheric region with mild propagation to the left side with lower amplitude sharp wave. There is no evidence of electrographic seizures. After injection of 2 mg of Ativan the epileptogenic activity decreased but did not disappear. INTERPRETATION This is an abnormal EEG with evidence of epileptogenic foci mainly on the right hemisphere with mild propagation to the left. There is no evidence of electrographic seizure on this follow up EEG. Clinical correlation is recommended. MD NATHAN Brothers/kimberley /9:02 AM /9:17 AM NGUYỄN
--- NOTE | 2017-05-01 13:17 | HHI.PR ---
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 Plan Neuro checks Q1 H Fosphenytoin 200mg Q8h Keppra 1gm Q 8h Phenobarbitone 90 mg Q8h Vimpat 150mg Q8h Seizure precautions Continuous EEG monitoring Obtain serum AED levels next am DVT prophylaxis Diagnosis/Plan: Subjective Subjective Comments reported seizure activity x4 Loaded with Phenobarb and a maintenance dose of Phenobarb Therapeutic levels of Phenobarb Continuos EEG revealed less frequent epileptiform discharges with no evidence of electrographic seizures is at bed side Active Medications Current Medications Medications (Trade) Dose Ordered Sig/Meli Route Start Time Stop Time Status Last Admin Sodium Chloride 1,000 ml @ 70 mls/hr [id number] IV 04/28/17 20:00 05/01/17 09:03 (Ativan Inj) 1 mg Q15M PRN IV PUSH 04/28/17 18:45 05/01/17 10:07 (NS Flush) 2 ml UNSCH PRN IV FLUSH 04/28/17 20:15 (NS Flush) 2 ml BID IV FLUSH 04/28/17 21:00 05/01/17 08:18 (Narcan Inj) 0.4 mg UNSCH PRN IV PUSH 04/28/17 20:15 (Aspirin Chew) 81 mg DAILY CHEW 04/29/17 09:00 04/29/17 09:19 (Protonix) 40 mg DAILY PO 04/29/17 09:00 04/29/17 09:19 (Nephrocaps) 1 cap DAILY PO 04/29/17 09:00 04/29/17 09:19 (Ferrous Sulfate Liq) 140 mg DAILY PO 04/29/17 09:00 (Lovenox Inj) 40 mg Q24H SQ 04/28/17 22:00 04/30/17 22:59 (TEGretol CHEW) 300 mg TID PO 04/29/17 18:00 Levetriacetam 100 ml @ 400 mls/hr Q8HR IV 04/29/17 15:45 05/01/17 04:54 (Cerebyx Inj) 200 mgpe Q8HR IV 04/29/17 22:00 05/01/17 04:54 Lacosamide 150 mg/ Sodium Chloride 115 ml @ 115 mls/hr Q8H IV 04/29/17 18:00 05/01/17 10:12 (Luminal Inj) 90 mg Q8H IV 05/01/17 00:00 Future hold 05/01/17 00:14 (Apresoline Inj) 10 mg Q6HR PRN IV PUSH 04/30/17 18:00 05/01/17 11:05 Allergies Allergies Coded Allergies No Known Allergies (Verified04/07/16) Review of Systems All other ROS: ROS reviewed as documented in chart Exam I&O / VS 05/01/17 05/01/17 05/02/17 15:00 23:00 07:00 Intake Total 102 ml Balance 102 ml IV Total 102 ml Vital Signs Date Time Temp Pulse Resp B/P (MAP) Pulse Ox O2 Delivery O2 Flow Rate FiO2 05/01/17 12:00 98.8 115 29 155/73 (100) 96 05/01/17 12:00 115 05/01/17 10:00 93 05/01/17 08:00 98.1 92 27 159/67 (97) 100 05/01/17 08:00 92 05/01/17 07:28 99 Nasal Cannula 2.00 05/01/17 06:00 67 05/01/17 04:00 74 05/01/17 04:00 98.0 74 19 149/73 (98) 100 05/01/17 00:00 98.0 80 21 124/65 (84) 100 05/01/17 00:00 80 04/30/17 22:00 84 04/30/17 21:32 100 Nasal Cannula 2.50 04/30/17 20:00 99.5 93 25 163/84 (110) 100 04/30/17 20:00 93 04/30/17 19:00 98 04/30/17 19:00 100 22 197/87 (123) 100 04/30/17 18:00 77 21 184/90 (121) 99 04/30/17 18:00 77 04/30/17 17:00 77 22 189/90 (123) 100 04/30/17 17:00 77 04/30/17 16:00 97.8 79 22 210/103 (138) 94 04/30/17 16:00 79 04/30/17 15:00 70 04/30/17 15:00 65 22 182/85 (117) 100 04/30/17 14:00 68 25 182/84 (116) 100 04/30/17 14:00 69 Eye: EOMI, Normal conjuctiva Respiratory: Lungs CTA, Non-labored respirations Cardiology: Normal rate, Normal peripheral perfusion Exam Comments Lethargic, sleepy arousable Left spastic hemiparesis/chronic moves right side of body Alvarado's catheter in place Objective Micro and Labs Laboratory Tests Test 04/30/17 18:51 05/01/17 03:50 Phenobarbital Level 7.0 15.7 Blood Urea Nitrogen 8 Creatinine 0.54 Random Glucose 81 Total Protein 7.0 Albumin 3.5 Calcium Level 8.3 Alkaline Phosphatase 114 Aspartate Amino Transf (AST/SGOT) 11 Alanine Aminotransferase (ALT/SGPT) 31 Total Bilirubin 0.7 Sodium Level 136 Potassium Level 3.8 Chloride Level 104 Carbon Dioxide Level 23.6 Anion Gap 8 Estimat Glomerular Filtration Rate 147 Total Creatine Kinase 32 Phenytoin (Dilantin) Level 19.3 Sunitha Zaidi MD May 01, 2017 13:17
--- NOTE | 2017-05-01 15:51 | HHI.PR ---
Subjective Remarks stuporous barely eyes to vigorous stimulation no meaningful interaction spontaenous right sided movements Objective Vitals Vital Signs Date Time Temp Pulse Resp B/P (MAP) Pulse Ox O2 Delivery O2 Flow Rate FiO2 05/01/17 14:00 113 05/01/17 12:00 98.8 115 29 155/73 (100) 96 05/01/17 12:00 115 05/01/17 10:00 93 05/01/17 08:00 98.1 92 27 159/67 (97) 100 05/01/17 08:00 92 05/01/17 07:28 99 Nasal Cannula 2.00 05/01/17 06:00 67 05/01/17 04:00 74 05/01/17 04:00 98.0 74 19 149/73 (98) 100 05/01/17 00:00 98.0 80 21 124/65 (84) 100 05/01/17 00:00 80 04/30/17 22:00 84 04/30/17 21:32 100 Nasal Cannula 2.50 04/30/17 20:00 99.5 93 25 163/84 (110) 100 04/30/17 20:00 93 04/30/17 19:00 98 04/30/17 19:00 100 22 197/87 (123) 100 04/30/17 18:00 77 21 184/90 (121) 99 04/30/17 18:00 77 04/30/17 17:00 77 22 189/90 (123) 100 04/30/17 17:00 77 04/30/17 16:00 97.8 79 22 210/103 (138) 94 04/30/17 16:00 79 I/O 04/30/17 04/30/17 04/30/17 05/01/17 05/01/17 05/01/17 07:00 15:00 23:00 07:00 15:00 23:00 Intake Total 1394 ml 416.5384 ml 216.5385 ml 1453 ml 207 ml Output Total 1100 ml 600 ml 300 ml 510 ml Balance 294 ml 416.5384 ml -383.4615 ml 1153 ml -303 ml Intake Oral 0 ml 0 ml 0 ml IV Total 1394 ml 416.5384 ml 216.5385 ml 1453 ml 207 ml Output Urine Total 1100 ml 600 ml 300 ml 510 ml # Bowel Movements 0 0 0 Result Diagram: 04/28/17 1600 05/01/17 0350 Imaging Last Impressions Head Magnetic Resonance Angiography 04/28/17 0000 Signed Impressions: Service Date/Time: Friday, April 28, 2017 19:00 - CONCLUSION: Atherosclerotic changes of the distal segment of bilateral posterior cerebral arteries. Otherwise negative with no evidence of thrombus, significant stenosis of the anterior circuit or aneurysm. Mohit Linda MD Head CT 04/28/17 0000 Signed Impressions: Service Date/Time: Friday, April 28, 2017 16:33 - CONCLUSION: 1. No acute intracranial abnormality is identified. 2. Chronic changes include generalized atrophy and chronic periventricular white matter changes along with an old lacuna in the right basal ganglia. Kevin Kerr MD Brain MRI 04/28/17 0000 Signed Impressions: Service Date/Time: Friday, April 28, 2017 19:00 - CONCLUSION: No acute intracranial abnormality. Periventricular microvascular ischemic demyelinization. Remote lacunar infarct right basal ganglia. Mohit Linda MD Objective Remarks stuporous anicteric, pupils euqal + facial asymmetry no gag reflex no nuchal rigidity lungs clear sinus with occasional PACs lower extremities no edema left sided hemiparesis condom catheter in place A/P Problem List: (1) Partial seizure ICD Code: R56.9 - Unspecified convulsions Status: Acute (2) Seizure disorder ICD Code: G40.909 - Epilepsy, unspecified, not intractable, without status epilepticus Status: Chronic Assessment and Plan 76 y/o male with a history of tonic-clonic seizures and CVA who presented to the ED with Status Epilepticus- Reviewed: Head CT with no acute intracranial process, chronic changes. Brain MRI with no acute intracranial abnormality, microvascular ischemic demyelinization, remote lacunar infarct in the right basal ganglia. Brain MRA with atherosclerotic changes; no evidence of thrombus significant stenosis, or aneurysm. -MS not improving - Dr. Benz ff - neuro checks q4h - seizure precautions - Continue Keppra,IV, on IV Cerebryx. - on Tegretol po- not getting - will place NGT - EEG + for epileptiform activity-on EEG- but showing improvement perf Neurology - ST consult - along with us - Ativan as seen for seizures - Upon review of EMR, it appears the patient was on 0.5 mg of Klonopin at night but it appears is been discontinued and urine toxicology negative including benzos - get ABG now Confusion: continue to monitor MS- waxing - Patient's also reports some mild dementia. Probably secondary to seizures as above. Brain imaging as above. UA with no evidence of UTI. Afebrile with no leukocytosis. Possible medication effect is also in the differential. History of CVA: With residual left-sided weakness - Continue aspirin GERD: Chronic. - Continue PPI DVT prophylaxis - Lovenox 40 mg subq q24h Start tube feedings- insert NGT- start jevity [employer] consult will discuss advance directives with family-son Jim Frausto Julieta BURROUGHS May 01, 2017 15:51
[2017-05-01] MEDS ORDERED: PANTOPRAZOLE SODIUM 40 MG VIAL IV PUSH SCH (16:00)
[2017-05-01 17:27] LABS: HEMATOCRIT 45.9 % (39.0-51.0); MEAN CELL VOLUME 87.7 FL (80.0-100.0); MEAN CORPUSCULAR HEMOGLOBIN 28.9 PG (27.0-34.0); PLATELET COUNT 252 TH/MM3 (150-450); RED BLOOD COUNT 5.23 MIL/MM3 (4.50-5.90); RED CELL DISTRIBUTION WIDTH 15.5 % (11.6-17.2); REVIEW FLAG FINAL; WHITE BLOOD COUNT 14.3 TH/MM3 (4.0-11.0)
[2017-05-01 18:31] LABS: BLOOD GAS BASE EXCESS -5.1 mmol/L (-2-2); BLOOD GAS CARBOXYHEMOGLOBIN 1.5 % (0-4); BLOOD GAS HCO3 19 mmol/L (22-26); BLOOD GAS METHEMOGLOBIN 1.3 % (0-2); BLOOD GAS O2 HGB SATURATION 95 % (90-100); BLOOD GAS PCO2 33 mmHg (38-42); BLOOD GAS PO2 91 mmHg (61-120); CRITICAL VALUE NO; DRAW SITE RT RADIAL; LITER FLOW 2 L/M; NUMBER OF ARTERIAL PUNCTURES 1; OXYGEN DEVICE NASAL CANNULA; STAT NO; TEMP CORR TO 98.6; ULNAR PULSE PRESENT
[2017-05-01] MEDS: ENOXAPARIN SODIUM 40 MG/0.4 ML SYRINGE SQ SCH (21:20)
--- NOTE | 2017-05-01 23:28 | RADRPT ---
EXAM DATE/TIME: 05/01/2017 23:10 This report includes an Addendum and supersedes previous reports for this exam. [facility] COMPARISON: No previous studies available for comparison. INDICATIONS : Dobhoff tube placement. MEDICAL HISTORY : Stroke. Seizures SURGICAL HISTORY : Tonsillectomy. Inguinal hernia repair. ENCOUNTER: Subsequent ACUITY: 3 days PAIN SCORE: Non-responsive. LOCATION: Bilateral chest FINDINGS: There is left basilar lung consolidation. Feeding tube traverses the esophagus. Right lung is relativ mark anthony clear. No pneumothorax. CONCLUSION: 1. Basilar feeding tube with tip not visualized the distal portion overlies the stomach. Tang Palomares MD on May 01, 2017 at 23:26 Board Certified Radiologist. This report was verified electronically. ADDENDUM: Conclusion should read that the Dobbhoff feeding tube tip is in the stomach. Tang Palomares MD on May 01, 2017 at 23:38 Board Certified Radiologist. This report was verified electronically.
[2017-05-02] VITALS (10 sets, daily range): BP systolic 125–159; BP diastolic 58–74; PULSE 105–119; RESP 29–40; TEMP 98.5–98.8; O2SAT 95–99
[2017-05-02] MEDS: LACOSAMIDE INJ 150 MG in SODIUM CHLORIDE 0.9% INJ 100 ML IV SCH ×2 (01:52→10:33)
[2017-05-02 05:35] LABS: PHENOBARBITAL 22.5 MCG/ML (15.0-40.0)
[2017-05-02] MEDS: FOSPHENYTOIN SODIUM 100 MG PE/2 ML VIAL IV SCH ×2 (05:55→13:43)
[2017-05-02] MEDS: levETIRAcetam 1000 MG INJ 100 ML IV SCH ×2 (05:55→14:00)
[2017-05-02] MEDS: SODIUM CHLORIDE 0.9% FLUSH 10 ML FLUSH IV FLUSH SCH (07:40)
[2017-05-02] MEDS: SODIUM CHLOR 0.9% 1000 ML INJ 1,000 ML IV SCH (07:41)
[2017-05-02 07:45] LABS: BLOOD GAS BASE EXCESS -2.9 mmol/L (-2-2); BLOOD GAS CARBOXYHEMOGLOBIN 1.3 % (0-4); BLOOD GAS HCO3 21 mmol/L (22-26); BLOOD GAS METHEMOGLOBIN 1.3 % (0-2); BLOOD GAS O2 HGB SATURATION 96 % (90-100); BLOOD GAS OXYGEN CONTENT 19.8 Vol % (12.0-20.0); BLOOD GAS PCO2 31 mmHg (38-42); BLOOD GAS PO2 128 mmHg (61-120); BLOOD GAS TOTAL HGB 14.5 G/DL (12.0-16.0); TEMP CORR TO 98.6
[2017-05-02 07:46] LABS: CRITICAL VALUE NO; DRAW SITE RT RADIAL; LITER FLOW 15 L/M; NUMBER OF ARTERIAL PUNCTURES 1; STAT NO; ULNAR PULSE PRESENT
--- NOTE | 2017-05-02 07:49 | HHI.PR ---
Subjective Remarks overnight desaturated- requiring 100% NRB overnight thick copious yellow greenish secretions mouth breathing MS not improving Objective Vitals Vital Signs Date Time Temp Pulse Resp B/P (MAP) Pulse Ox O2 Delivery O2 Flow Rate FiO2 05/02/17 06:30 99 Non-Rebreather 15.00 100 05/02/17 04:00 118 05/02/17 04:00 98.5 118 36 159/74 (102) 95 05/02/17 02:00 119 05/02/17 00:00 111 05/02/17 00:00 98.7 111 29 155/74 (101) 96 05/01/17 22:00 118 05/01/17 20:00 98.9 128 29 194/101 (132) 97 05/01/17 20:00 92 Nasal Cannula 5.00 05/01/17 20:00 128 05/01/17 18:00 115 05/01/17 16:00 115 05/01/17 16:00 99.6 115 31 157/75 (102) 96 05/01/17 14:00 113 05/01/17 12:00 98.8 115 29 155/73 (100) 96 05/01/17 12:00 115 05/01/17 10:00 93 05/01/17 08:00 98.1 92 27 159/67 (97) 100 05/01/17 08:00 92 I/O 05/01/17 05/01/17 05/01/17 05/02/17 05/02/17 05/02/17 07:00 15:00 23:00 07:00 15:00 23:00 Intake Total 1453 ml 207 ml 205 ml Output Total 300 ml 510 ml 400 ml Balance 1153 ml -303 ml -195 ml Intake Oral 0 ml IV Total 1453 ml 207 ml 205 ml Output Urine Total 300 ml 510 ml 400 ml # Bowel Movements 0 Result Diagram: 05/01/17 1645 05/01/17 0350 Imaging Last Impressions Chest X-Ray 05/01/17 0000 Signed Impressions: Service Date/Time: Monday, May 01, 2017 23:10 - CONCLUSION: 1. Basilar feeding tube with tip not visualized the distal portion overlies the stomach. Tang Palomares MD ADDENDUM: Conclusion should read that the Dobbhoff feeding tube tip is in the stomach. Tang Palomares MD Head Magnetic Resonance Angiography 04/28/17 Signed Impressions: Service Date/Time: Friday, April 28, 2017 19:00 - CONCLUSION: Atherosclerotic changes of the distal segment of bilateral posterior cerebral arteries. Otherwise negative with no evidence of thrombus, significant stenosis of the anterior circuit or aneurysm. Mohit Linda MD Head CT 04/28/17 Signed Impressions: Service Date/Time: Friday, April 28, 2017 16:33 - CONCLUSION: 1. No acute intracranial abnormality is identified. 2. Chronic changes include generalized atrophy and chronic periventricular white matter changes along with an old lacuna in the right basal ganglia. Kevin Kerr MD Brain MRI 04/28/17 Signed Impressions: Service Date/Time: Friday, April 28, 2017 19:00 - CONCLUSION: No acute intracranial abnormality. Periventricular microvascular ischemic demyelinization. Remote lacunar infarct right basal ganglia. Mohit Linda MD Objective Remarks stuporous, grunting to painful stimuli anicteric, pupils euqal Dubhoff tube in place + facial asymmetry no gag reflex no nuchal rigidity lungs sinus tachycardia 100-110 lower extremities no edema left sided hemiparesis condom catheter in place A/P Problem List: (1) Partial seizure ICD Code: R56.9 - Unspecified convulsions Status: Acute (2) Seizure disorder ICD Code: G40.909 - Epilepsy, unspecified, not intractable, without status epilepticus Status: Chronic Assessment and Plan 76 y/o male with a history of tonic-clonic seizures and CVA who presented to the ED with Status Epilepticus- MS status quo- stuporous Reviewed: Head CT with no acute intracranial process, chronic changes. Brain MRI with no acute intracranial abnormality, microvascular ischemic demyelinization, remote lacunar infarct in the right basal ganglia. Brain MRA with atherosclerotic changes; no evidence of thrombus significant stenosis, or aneurysm. - Dr. Benz ff - neuro checks q4h - seizure precautions - Continue Keppra,IV, on IV Cerebryx. - on Tegretol NGT - EEG + for epileptiform activity-on EEG- - Ativan as seen for seizures Acute Respiratory Failure- hypoxemia- high Fi02 requirement Likely Aspiration PNA- - will require intubation- I will call to address this change in clinical status and address code status - sputum gram stain, C and S now. CXR now - get ABG -now and titrate fi02 - start Zosyn Confusion: continue to monitor MS- waxing - Patient's also reports some mild dementia. Probably secondary to seizures as above. Brain imaging as above. UA with no evidence of UTI. Afebrile with no leukocytosis. Possible medication effect is also in the differential. History of CVA: With residual left-sided weakness Baseline dementia - Continue aspirin GERD: Chronic. - Continue PPI DVT prophylaxis - Lovenox 40 mg subq q24h HOld tube tube feedings- discussed advance directives with family regarding code status - and son and daughter - NO code - with hospice consult total time spent 45 minutes Jim Frausto MD May 02, 2017 07:49
[2017-05-02] MEDS ORDERED: MIDAZOLAM HCL 5 MG/ML VIAL (1 ML) ONE (07:56)
[2017-05-02] MEDS ORDERED: ETOMIDATE 40 MG/20 ML VIAL ONE (07:59)
[2017-05-02] MEDS: FERROUS SULFATE 300 MG /5ML UDC PO SCH (08:33)
[2017-05-02] MEDS: ASPIRIN 81 MG CHEW TAB CHEW SCH (08:33)
[2017-05-02] MEDS: VITAMIN B CMPLX/VITC/FOLIC AC CAP PO SCH (08:34)
[2017-05-02] MEDS ORDERED: PIPERACIL-TAZO 4.5 GM PREMIX 100 ML IV SCH (09:00)
--- NOTE | 2017-05-02 09:11 | RADRPT ---
EXAM DATE/TIME: 05/02/2017 08:38 [facility] COMPARISON: CHEST SINGLE AP, May 01, 2017, 23:10. INDICATIONS : Shortness of breath. MEDICAL HISTORY : Stroke. Seizures. SURGICAL HISTORY : Tonsillectomy. Inguinal hernia repair. ENCOUNTER: Initial ACUITY: 1 day PAIN SCORE: Non-responsive. LOCATION: Bilateral chest FINDINGS: The heart size is normal. There is increased density at the left base. The right lung is grossly que r. There is a feeding tube with its tip in the distal stomach. There is a dextrocurvature of the thor acic spine. CONCLUSION: Left lower lobe consolidation or atelectasis. Kevin Montano MD on May 02, 2017 at 9:05 Board Certified Radiologist. This report was verified electronically.
[2017-05-02 09:26] LABS: AUTOMATED NEUTROPHIL # 11.9 TH/MM3 (1.8-7.7); BASOPHIL % 0.2 % (0.0-2.0); HEMATOCRIT 42.9 % (39.0-51.0); HEMO FLAGS DIFF FINAL; LYMPH % 3.2 % (9.0-44.0); LYMPHOCYTE # 0.4 TH/MM3 (1.0-4.8); MEAN CELL VOLUME 85.5 FL (80.0-100.0); MEAN CORPUSCULAR HEMOGLOBIN 29.2 PG (27.0-34.0); MEAN CORPUSCULAR HGB CONC 34.1 % (32.0-36.0); NEUT % 89.6 % (16.0-70.0); PLATELET COUNT 213 TH/MM3 (150-450); RED BLOOD COUNT 5.01 MIL/MM3 (4.50-5.90); RED CELL DISTRIBUTION WIDTH 15.8 % (11.6-17.2); WHITE BLOOD COUNT 13.2 TH/MM3 (4.0-11.0)
[2017-05-02 09:47] LABS: ANION GAP 9 MEQ/L (5-15); AST (GOT) 15 U/L (15-37); BICARBONATE 22.9 MEQ/L (21.0-32.0); BLOOD UREA NITROGEN 10 MG/DL (7-18); CHLORIDE 107 MEQ/L (98-107); GLOMERULAR FILTRATION RATE 111 ML/MIN (>89); POTASSIUM 3.6 MEQ/L (3.5-5.1); SODIUM (NA) 139 MEQ/L (136-145)
[2017-05-02 09:50] LABS: ALKALINE PHOSPHATASE 90 U/L (45-117); ALT (GPT) 31 U/L (12-78); TOTAL BILIRUBIN ADULT 1.1 MG/DL (0.2-1.0)
--- NOTE | 2017-05-02 14:14 | HHI.DS ---
Discharge Summary Admission Date Apr 29, 2017 at 11:23 Discharge Date: May 02, 2017 Admitting Diagnosis focal seizure, left hemiplegia . (1) Partial seizure ICD Code: R56.9 - Unspecified convulsions Status: Acute (2) Seizure disorder ICD Code: G40.909 - Epilepsy, unspecified, not intractable, without status epilepticus Status: Chronic Brief History - From Admission Written by Brooke Mcdermott, acting as scribe for Dr. Landry on 04/28/17 at 20:51. The patient's OT was at the house evaluating the patient. He was in a sitting position at the time. The patient's provides the history: Suddenly, his eyes were staring blankly; he was given a pen and his left hand was unable to grasp a pen. His states that he was unresponsive to commands/questions. Eyes wouldn't follow to left field of gaze. Symptoms began a little after 12 noon on 04/28/17. In ED, he was noted to be twitching and having spasms left hand and face. All symptoms are new. The patient has a history of seizures. Home AED: Carbamazepine 300 mg BID, Dilantin 1500 mg BID, and Keppra 1500 mg BID - no missed doses, no nausea or vomiting. He has been having some confusion. He was in [place] for two weeks - admitted 03/15/17 to [facility] and was discharged to [place] and to home on 04/10/17. He has some mild baseline dementia. Denies fever, diarrhea, black or red stools, dysuria. Frequent urination at night. The patient reports that he has been having trouble speaking because his dentures are loose. Neurologist: Dr. Dumont CBC/BMP: 05/02/17 0905/02/17 09 Significant Findings Laboratory Tests Test 04/29/17 18:02 04/30/17 07:07 04/30/17 18:51 05/01/17 03:50 Phenobarbital Level 7.0 MCG/ML (15.0-40.0) Creatinine 0.54 MG/DL (0.60-1.30) Calcium Level 8.3 MG/DL (8.5-10.1) Aspartate Amino Transf (AST/SGOT) 11 U/L (15-37) Total Creatine Kinase 32 U/L (39-308) Test 05/01/17 16:45 05/01/17 18:25 05/02/17 04:41 05/02/17 07:39 White Blood Count 14.3 TH/MM3 (4.0-11.0) Blood Gas HCO3 19 mmol/L (22-26) 21 mmol/L (22-26) Blood Gas Base Excess -5.1 mmol/L (-2-2) -2.9 mmol/L (-2-2) Arterial Blood Partial Pressure CO2 33 mmHg (38-42) 31 mmHg (38-42) Arterial Blood pH 7.44 (7.380-7.420) Arterial Blood Partial Pressure O2 128 mmHg (61-120) Test 05/02/17 09:01 White Blood Count 13.2 TH/MM3 (4.0-11.0) Neutrophils (%) (Auto) 89.6 % (16.0-70.0) Lymphocytes (%) (Auto) 3.2 % (9.0-44.0) Neutrophils # (Auto) 11.9 TH/MM3 (1.8-7.7) Lymphocytes # (Auto) 0.4 TH/MM3 (1.0-4.8) Random Glucose 141 MG/DL (74-106) Total Protein 6.2 GM/DL (6.4-8.2) Albumin 3.0 GM/DL (3.4-5.0) Calcium Level 8.2 MG/DL (8.5-10.1) Total Bilirubin 1.1 MG/DL (0.2-1.0) PE at Discharge stuporous, grunting to painful stimuli anicteric, pupils euqal Dubhoff tube in place + facial asymmetry no gag reflex no nuchal rigidity lungs sinus tachycardia 100-110 lower extremities no edema left sided hemiparesis condom catheter in place Pt Condition on Discharge: Deteriorating Discharge Disposition: Hospice/Med Facility Discharge Instructions DIET: Follow Instructions for: Nothing By Mouth Speech Therapy-Diet Recommends: Pureed Activities you can perform: Continue Bedrest Jim Frausto MD May 02, 2017 14:14
[2017-05-02] MEDS ORDERED: MORPHINE SULFATE 4 MG/ML INJ IV PUSH PRN (14:30)
== END 2017-05-02 17:02 | disposition hospice, inpatient (51) | DRG 100 ==
LOC: NEPE 13:34 → NEDA 18:42 → NEPHCDU 20:00 → OBSVTOIN 04-29 11:23 → HIME 04-29 14:15
PROVIDERS: ADMIT Internal Medicine; ATTEND Internal Medicine
DX: G40.101 Localization-related (focal) (partial) symptomatic epilepsy and epileptic syndromes with simple partial seizures, not intractable, with status epilepticus (principal); J96.01 Acute respiratory failure with hypoxia; J69.0 Pneumonitis due to inhalation of food and vomit; I69.354 Hemiplegia and hemiparesis following cerebral infarction affecting left non-dominant side; K21.9 Gastro-esophageal reflux disease without esophagitis; F03.90 Unspecified dementia, unspecified severity, without behavioral disturbance, psychotic disturbance, mood disturbance, and anxiety; Z87.891 Personal history of nicotine dependence; Z51.5 Encounter for palliative care
CPT/HCPCS: 36600; 70450; 70544; 70551; 71010; 76937; 80053; 80156; 80184; 80185; 80307; 81001; 82550; 82805; 85025; 85027; 93005; 95819; C9113; C9254; J0360; J1650; J1953; J2060; J2250; J2270; J2543; J2560; J7030; J7070; Q2009